=== PATIENT | male | born 1965 | race Caucasian/White ===

== ENCOUNTER 2022-04-15 11:18 | Inpatient (IN) | payer MEDICAID ==
--- NOTE | 2022-04-15 11:48 | ED ---
General Adult HPI - General Chief complaint: Chest Pain Stated complaint: Chest Pain Time Seen by Provider: 04/15/22 11:38 Source: patient, RN notes reviewed, old records reviewed Mode of arrival: EMS Limitations: no limitations - History of Present Illness Initial comments: Patient is a 56-year-old male with past medical history that is unremarkable pr [facility] emergency Department complaining of a multi day history of chest pain and shortness of breath. Patient states that he has had intermittent nonspecific chest pain over the last 2 days that he currently does not have. Last had it yesterday. Also has been having exertional shortness of breath over the same period of time. Denies cough, fevers. Denies worsening lower extremity edema. Denies history of blood clots. Denies abdominal pain, nausea, vomiting. Denies any lightheadedness or dizziness. Has no other acute point at this time. No cardiac history. Presents for further evaluation at this time.Endorses exertional dyspnea. He endorses mild orthopnea. Denies PND. Denies lower extremity edema. - Related Data Allergies Allergy/AdvReac Type Severity Reaction Status Date / Time No Known Allergies Allergy Verified 04/15/22 11:36 Review of Systems ROS Statement: Those systems with pertinent positive or pertinent negative responses have been documented in the HPI. Review of Systems: CONST: Denies fever EYES: Denies blurry vision ENT: Denies nasal congestion C/V: Denies Chest pain RESP: Endorses Shortness of breath GI: Denies abdominal pain : Denies dysuria SKIN: Denies rash. MSK: Denies joint pain. NEURO: Denies headache ROS Other: All systems not noted in ROS Statement are negative. Past Medical History Past Medical History: No Reported History History of Any Multi-Drug Resistant Organisms: None Reported Past Surgical History: No Surgical Hx Reported Past Psychological History: No Psychological Hx Reported Smoking Status: Former smoker Past Alcohol Use History: Rare Past Drug Use History: None Reported General Exam - General Exam Comments Initial Comments: General: Appears in no acute distress. HEAD: Normal with no signs of head trauma. EYES: PERRLA, EOMI, conjunctiva normal, no discharge. ENT: Hearing grossly intact, normal oropharynx. RESPIRATORY: Clear breath sounds bilaterally. No wheezes, rales, or rhonchi. No hypoxia. No increased work of breathing. C/V: Regular rate and rhythm. S1 and S2 auscultated, no edema, peripheral pulses 2+ and intact throughout ABD: Abd is soft, nontender, nondistended EXT: Normal range of motion, no obvious deformity SKIN: No rashes or lesions observed on exposed skin. NEURO: Alert and oriented x 4. Cranial nerves II-XII intact. No focal sensory or strength deficits. Limitations: no limitations Course Vital Signs 04/15/22 11:22 Temperature 97.9 F Pulse Rate 91 Respiratory 18 Rate Blood Pressure 135/90 O2 Sat by Pulse 96 Oximetry Medical Decision Making - Medical Decision Making Based on the patient's presentation and physical exam, I'm concerned for acute cardio pulmonary etiology for his current symptoms. We will obtain a cardiac workup as well as d-dimer. Screening EKG and chest x-ray will be obtained. He was in agreement this plan. Vital signs are within normal limits. He will be given aspirin. Currently has no chest pain. No shortness of breath at rest. EKG showed no signs of acute ischemia. Chest x-ray reveals possible small pleural effusion. Laboratory studies were remarkable for an elevated d-dimer of 0.91. Troponin is slightly elevated to 0.039. BNP is 1520. On reevaluation, patient's vital signs remained within normal limits and stable. Discussed with him I would like to obtain CT angiogram to evaluate for p ulmonary embolism. He was in agreement this plan. CT PE shows no signs of PE. There are small bilateral pleural effusions. Other nonspecific findings including some lymphadenopathy. His chronic lung disease as well. I discussed with the patient the results of his imaging. Due to his elevated troponin, his BNP also being elevated for his age, I would like to admit him for diuresis and evaluation by cardiac cardiology. He was in agreement this plan. Will be started on heparin drip. We started an IV Lasix. We'll obtain an echo. Patient was in agreement this plan. I spoke with the admitting physician, BEHZAD Ochoa who accepted the patient. cardiology was consulted. - Lab Data Result diagrams: 04/15/22 11:58 04/15/22 11:50 Lab Results 04/15/22 04/15/22 04/15/22 Range/Units 11:50 11:50 11:50 WBC (3.8-10.6) k/uL RBC (4.30-5.90) m/uL Hgb (13.0-17.5) gm/dL Hct (39.0-53.0) % MCV (80.0-100.0) fL MCH (25.0-35.0) pg MCHC (31.0-37.0) g/dL RDW (11.5-15.5) % Plt Count (150-450) k/uL MPV Neutrophils % % Lymphocytes % % Monocytes % % Eosinophils % % Basophils % % Neutrophils # (1.3-7.7) k/uL Lymphocytes # (1.0-4.8) k/uL Monocytes # (0-1.0) k/uL Eosinophils # (0-0.7) k/uL Basophils # (0-0.2) k/uL PT (9.0-12.0) sec INR (<1.2) APTT (22.0-30.0) sec D-Dimer (<0.60) mg/L FEU Sodium 137 (137-145) mmol/L Potassium 4.7 (3.5-5.1) mmol/L Chloride 108 H (98-107) mmol/L Carbon Dioxide 23 (22-30) mmol/L Anion Gap 6 mmol/L BUN 16 (9-20) mg/dL Creatinine 0.55 L (0.66-1.25) mg/dL Est GFR (CKD-EPI)AfAm >90 (>60 ml/min/1.73 sqM) Est GFR (CKD-EPI)NonAf >90 (>60 ml/min/1.73 sqM) Glucose 110 H (74-99) mg/dL Plasma Lactic Acid Cesar 1.3 (0.7-2.0) mmol/L Calcium 8.8 (8.4-10.2) mg/dL Magnesium 1.9 (1.6-2.3) mg/dL Total Bilirubin 0.6 (0.2-1.3) mg/dL AST 51 (17-59) U/L ALT 103 H (4-49) U/L Alkaline Phosphatase 76 (38-126) U/L Troponin I 0.039 H* (0.000-0.034) ng/mL NT-Pro-B Natriuret Pep pg/mL Total Protein 6.1 L (6.3-8.2) g/dL Albumin 3.5 (3.5-5.0) g/dL 04/15/22 04/15/22 04/15/22 Range/Units 11:50 11:58 11:58 WBC 8.9 (3.8-10.6) k/uL RBC 5.37 (4.30-5.90) m/uL Hgb 16.0 (13.0-17.5) gm/dL Hct 48.8 (39.0-53.0) % MCV 90.9 (80.0-100.0) fL MCH 29.8 (25.0-35.0) pg MCHC 32.8 (31.0-37.0) g/dL RDW 14.2 (11.5-15.5) % Plt Count 247 (150-450) k/uL MPV 7.9 Neutrophils % 65 % Lymphocytes % 24 % Monocytes % 7 % Eosinophils % 2 % Basophils % 1 % Neutrophils # 5.8 (1.3-7.7) k/uL Lymphocytes # 2.1 (1.0-4.8) k/uL Monocytes # 0.6 (0-1.0) k/uL Eosinophils # 0.2 (0-0.7) k/uL Basophils # 0.0 (0-0.2) k/uL PT 10.7 (9.0-12.0) sec INR 1.0 (<1.2) APTT 20.8 L (22.0-30.0) sec D-Dimer 0.91 H (<0.60) mg/L FEU Sodium (137-145) mmol/L Potassium (3.5-5.1) mmol/L Chloride (98-107) mmol/L Carbon Dioxide (22-30) mmol/L Anion Gap mmol/L BUN (9-20) mg/dL Creatinine (0.66-1.25) mg/dL Est GFR (CKD-EPI)AfAm (>60 ml/min/1.73 sqM) Est GFR (CKD-EPI)NonAf (>60 ml/min/1.73 sqM) Glucose (74-99) mg/dL Plasma Lactic Acid Cesar (0.7-2.0) mmol/L Calcium (8.4-10.2) mg/dL Magnesium (1.6-2.3) mg/dL Total Bilirubin (0.2-1.3) mg/dL AST (17-59) U/L ALT (4-49) U/L Alkaline Phosphatase (38-126) U/L Troponin I (0.000-0.034) ng/mL NT-Pro-B Natriuret Pep 1520 pg/mL Total Protein (6.3-8.2) g/dL Albumin (3.5-5.0) g/dL - EKG Data -: EKG Interpreted by Me EKG Comments: 12-lead Electrocardiogram Interpretation Note EKG was reviewed and interpreted by myself. 12-lead ECG performed at 1122 is interpreted by me as revealing normal sinus rhythm at a rate of 96 beats per minute. [place] is normal. [place] interval is 156 ms, QRS duration is 102 ms, QTc is 442 ms.. There were no ST or T wave abnormalities to suggest myocardial ischemia or injury. R wave progression across the precordium was satisfactory. By my interpretation this EKG is non-diagnostic for acute ischemia. Critical Care Time Critical Care Time: Yes Total Critical Care Time: 35 Critical Care Time: Upon my evaluation, this patient had a high probability of imminent or life- threatening deterioration due to elevated troponin, heart failure, heparin administration which required my direct attention, intervention, and personal management. I have personally provided 35 minutes of critical care time exclusive of time spent on separately billable procedures. Time includes review of laboratory data, radiology results, discussion with consultants, and monitoring for potential decompensation. Interventions were performed as documented in my note. Disposition Clinical Impression: Elevated troponin, Heart failure Disposition: ADMITTED IP TO THIS HOSP Condition: Stable Referrals: None,Stated [REFERRING] - 1-2 days Time of Disposition: 13:40
[2022-04-15] MEDS ORDERED: ASPIRIN 81 MG PO STA (11:49)
[2022-04-15 12:14] LABS: Basophils % (A) 1 %; Eosinophils # (A) 0.2 k/uL (0-0.7); Eosinophils % (A) 2 %; HCT 48.8 % (39.0-53.0); Lymphocytes # (A) 2.1 k/uL (1.0-4.8); Lymphocytes % (A) 24 %; MCH 29.8 pg (25.0-35.0); MCHC 32.8 g/dL (31.0-37.0); MCV 90.9 fL (80.0-100.0); Mean Platelet Volume 7.9; Monocytes # (A) 0.6 k/uL (0-1.0); Monocytes % (A) 7 %; Neutrophils # (A) 5.8 k/uL (1.3-7.7); Neutrophils % (A) 65 %; Platelet Count 247 k/uL (150-450); RBC 5.37 m/uL (4.30-5.90); RDW 14.2 % (11.5-15.5); WBC 8.9 k/uL (3.8-10.6)
[2022-04-15 12:28] LABS: ALT 103 U/L (4-49); AST 51 U/L (17-59); African American GFR (CKD) >90 (>60 ml/min/1.73 sqM); Albumin 3.5 g/dL (3.5-5.0); Alkaline Phosphatase 76 U/L (38-126); Anion Gap 6 mmol/L; Blood Urea Nitrogen 16 mg/dL (9-20); Calcium 8.8 mg/dL (8.4-10.2); Carbon Dioxide 23 mmol/L (22-30); Chloride 108 mmol/L (98-107); Glucose 110 mg/dL (74-99); Magnesium 1.9 mg/dL (1.6-2.3); Non-African American GFR(CKD) >90 (>60 ml/min/1.73 sqM); Potassium 4.7 mmol/L (3.5-5.1); Sodium 137 mmol/L (137-145); Total Bilirubin 0.6 mg/dL (0.2-1.3); Total Protein 6.1 g/dL (6.3-8.2)
[2022-04-15 12:36] LABS: Prothrombin Time 10.7 sec (9.0-12.0)
--- NOTE | 2022-04-15 12:38 | XR ---
EXAMINATION TYPE: XR chest 2V DATE OF EXAM: 04/15/2022 COMPARISON: NONE HISTORY: Difficulty breathing, chest pain TECHNIQUE: Frontal and lateral views of the chest are obtained. FINDINGS: There posterior costophrenic angles show some questionable blunting on the lateral exam, n o pneumothorax. There is eventration of the right hemidiaphragm, elevation right hemidiaphragm. No e vident airspace disease. The cardiac silhouette size is at the upper limit of normal for size, size m ay be accentuated by technique. The osseous structures are intact. IMPRESSION: Minimal blunting the posterior costophrenic angle, difficult to exclude small effusion, borderline cardiac size
[2022-04-15 12:45] LABS: Partial Thromboplastin Time 20.8 sec (22.0-30.0)
--- NOTE | 2022-04-15 13:34 | CT ---
EXAMINATION TYPE: CT chest angio for PE DATE OF EXAM: 04/15/2022 COMPARISON: Chest x-ray 04/15/2022 HISTORY: Shortness of breath and elevated d-dimer. CT DLP: 649.9 mGycm Automated exposure control for dose reduction was used. CONTRAST: CT Chest for pulmonary embolism performed with with IV Contrast, patient injected with 100ml mL of Is ovue 370. FINDINGS: LUNGS: Mild emphysematous changes are seen and there is coarsened interstitium peripherally which cou ld be associated with chronic interstitial lung disease. There are small bilateral pleural effusions. No sizable pneumothorax or definitive consolidative pneumonia. MEDIASTINUM: There is satisfactory enhancement of the pulmonary artery and its branches, there is no CT evidence for pulmonary embolism. There is a right hilar lymph node measuring 1.1 cm compatible wi th nonspecific adenopathy. Subcarinal lymphadenopathy measuring 1.4 cm coronary artery calcification noted. Aorta of normal caliber. Heart is enlarged with trace pericardial fluid. OTHER: Hypertrophic and degenerative changes of spine. Small hiatal hernia noted. Liver reduced in a ttenuation. IMPRESSION: 1. No diagnostic evidence of pulmonary embolism. 2. Small bilateral pleural effusion with findings suggestive of COPD and probable mild chronic inters titial lung disease. 3. There is a nonspecific hilar and mediastinal lymphadenopathy. 4. Reduced hepatic attenuation correlate with liver function enzymes. Hepatic stenosis in the differe ntial diagnosis.
[2022-04-15] MEDS ORDERED: HEPARIN SODIUM 1,000 UN/ML (10ML VL) IV ONE (13:46)
[2022-04-15] MEDS ORDERED: ACETAMINOPHEN TAB 325 MG TAB PO PRN (13:58)
[2022-04-15] MEDS ORDERED: NALOXONE 0.4 MG/ML 1 ML VIAL IVP PRN (13:58)
[2022-04-15] MEDS ORDERED: ONDANSETRON 4 MG/2 ML VIAL IVP PRN (13:58)
[2022-04-15] MEDS ORDERED: HYDROcodone/APAP 5-325MG 1 EACH TAB PO PRN (13:58)
[2022-04-15] MEDS ORDERED: ATORVASTATIN 80 MG TAB PO ONE (13:58)
[2022-04-15] MEDS ORDERED: MELATONIN 3 MG TABLET PO PRN (13:58)
[2022-04-15] MEDS ORDERED: NITROGLYCERIN SL TABS 0.4 MG TAB SUBLINGUAL PRN (13:58)
[2022-04-15] MEDS ORDERED: HEPARIN SOD,PORK IN 0.45% NACL 25,000 UNIT in 0.45% NACL 1 250ML.BAG IV SCH (14:00)
[2022-04-15] MEDS: FUROSEMIDE 10 MG/ML 4 ML VIAL IV SCH ×2 (15:02→20:27)
--- NOTE | 2022-04-15 18:15 | P.HPIM ---
History of Present Illness H&P Date: 04/15/22 History of Presenting Illness: Patient is a very pleasant 56-year-old male with past medical history of hyperlipidemia. He presented to the emergency department for reports of sh ortness of breath. Patient reports experiencing exertional shortness of breath on and off over the past year but states over the last 3 days this has significantly worsened. Patient reports he is unable to walk from one end of the room to the other without being significantly out of breath and taking what feels like forever to recuperate. In addition he reports experiencing some right-sided chest pain/discomfort 3 days ago. Patient denies having a cough or congestion, he denies having any fever, chills, dizziness, lightheadedness, diaphoresis, palpitations, shortness of breath at rest or experiencing any orthopnea, abdominal pain, nausea, vomiting, or experiencing any numbness/tingling/weakness/swelling in his extremities. Patient underwent full evaluation in the emergency department. EKG showing sinus rhythm at 96 bpm. Chest x-ray revealing minimal blunting of the posterior costophrenic angle difficult to exclude small effusions. Labs completed. CBC unremarkable. BMP revealing mild hyperkalemia with chloride of 108 otherwise no significant abnormalities. Liver profile revealing elevated ALT of 103. Troponin elevated at 0.039 and proBNP of 1520. D-dimer 0.91. CTA negative for pulmonary emboli revealing small bilateral pleural effusions with findings suggestive of COPD and probable mild chronic interstitial lung disease and nonspecific hilar and mediastinal lymphadenopathy. Patient was given aspirin 324 mg by mouth 1 dose and started on heparin infusion. He has been admitted under our services with consultation to cardiology. Review of systems: Pertinent positives and negatives as discussed in HPI, a complete review of systems was performed and all other systems are negative. Physical exam: Vital signs reviewed and stable. General: Nontoxic, no distress and appears stated age. Derm: Skin warm and dry, normal coloration for ethnicity. Head: Atraumatic, normocephalic and symmetric. Eyes: EOMs intact, no lid lag, and anicteric sclera Mouth: no lip lesions, mucus membranes moist Cardiovascular: regular rate and rhythm with normal S1S2, systolic murmur, positive posterior tibial pulses bilaterally, and cap refill < 2 seconds. Lungs: Respirations even, regular, and unlabored on room air. Lungs CTA bilaterally, no rhonchi, no rales, no wheezing, and no accessory muscle usage. Abdominal: soft, nontender to palpation, no guarding, no appreciable organomegaly Ext: ROM intact. No gross muscle atrophy, no edema, no contractures Neuro: Speech clear, face symmetrical and CN II-XII grossly intact with no noted focal neuro deficits Psych: Alert and oriented to person, place, time, and situation. Appropriate and pleasant affect. Assessment and Plan of Care: Exertional dyspnea Elevated troponin Bilateral pleural effusions -Cardiology consult, appreciate further recommendations -Telemetry monitoring -Trend troponins, initial troponin elevated at 0.039. -ProBNP elevated at 1520. -Cardiac diet, NPO at midnight -Continue heparin infusion per ACS protocol. -Aspirin, atorvastatin, Lasix and metoprolol -Lipid profile with a.m. labs. -Echocardiogram D-dimer elevated, CTA negative for pulmonary emboli Hyperlipidemia -Atorvastatin 80 mg daily in supplement of rosuvastatin 40 mg daily. The patient is admitted with an anticipated less than 2 midnight stay for evaluation of exertional dyspnea with elevated troponin. CODE STATUS full code: DVT prophylaxis: Heparin Discussed with: Patient and RN Anticipated discharge date: Clinical course to determine Anticipated discharge place: Home A total of 45 minutes was spent on the care of this complex patient more than 50% of the time was spent in counseling and care coordination. Mahesh Braga NP rendered care for this patient independently, reviewed the findings and plan as documented in the note above. I did not physically speak with or examine the patient on this date. Past Medical History Past Medical History: No Reported History History of Any Multi-Drug Resistant Organisms: None Reported Past Surgical History: No Surgical Hx Reported Past Psychological History: No Psychological Hx Reported Smoking Status: Former smoker Past Alcohol Use History: Rare Past Drug Use History: None Reported - Past Family History Father Family Medical History: Congestive Heart Failure (CHF), Hyperlipidemia Additional Family Medical History / Comment(s): Father had leaky heart valves and from L sided heart failure. He had low iron and had high dose iron infusions. He had hypotension and PVCs. Mother Family Medical History: Coronary Artery Disease (CAD) Additional Family Medical History / Comment(s): Mother had cardiac stents. Medications and Allergies Home Medications Medication Instructions Recorded Confirmed Type Aspirin EC [Ecotrin Low Dose] 81 mg PO DAILY 04/15/22 04/15/22 History Rosuvastatin Calcium [Crestor] 40 mg PO DAILY 04/15/22 04/15/22 History Sildenafil Citrate 100 mg PO DAILY PRN 04/15/22 04/15/22 History Ubidecarenone [Coenzyme Q10] 400 mg PO DAILY 04/15/22 04/15/22 History Allergies Allergy/AdvReac Type Severity Reaction Status Date / Time No Known Allergies Allergy Verified 04/15/22 14:53 Physical Exam Osteopathic Statement: *. No significant issues noted on an osteopathic structural exam other than those noted in the History and Physical/Consult. Vitals: Vital Signs Temp Pulse Resp BP Pulse Ox 04/15/22 11:22 97.9 F 91 18 135/90 96 Intake and Output 04/14/22 04/15/22 04/15/22 22:59 06:59 14:59 Other: Weight 111.13 kg Results CBC & Chem 7: 04/15/22 11:58 04/15/22 11:50 Labs: Abnormal Lab Results - Last 24 Hours (Table) 04/15/22 04/15/22 04/15/22 Range/Units 11:50 11:50 11:58 APTT 20.8 L (22.0-30.0) sec D-Dimer 0.91 H (<0.60) mg/L FEU Chloride 108 H (98-107) mmol/L Creatinine 0.55 L (0.66-1.25) mg/dL Glucose 110 H (74-99) mg/dL ALT 103 H (4-49) U/L Troponin I 0.039 H* (0.000-0.034) ng/mL Total Protein 6.1 L (6.3-8.2) g/dL
[2022-04-15] MEDS: HEPARIN SODIUM 1,000 UN/ML (10ML VL) IV PRN (20:27)
[2022-04-15] MEDS: METOPROLOL TARTRATE 12.5 MG TAB PO SCH (20:27)
[2022-04-15] MEDS ORDERED: BENZOCAINE/MENTHOL LOZENG 1 EACH LOZENGE MUCOUS MEM ONE (22:03)
[2022-04-16 04:10] LABS: Basophils % (A) 0 %; Eosinophils # (A) 0.3 k/uL (0-0.7); Eosinophils % (A) 3 %; HCT 51.2 % (39.0-53.0); HGB 16.3 gm/dL (13.0-17.5); Lymphocytes # (A) 2.6 k/uL (1.0-4.8); Lymphocytes % (A) 26 %; MCH 28.7 pg (25.0-35.0); MCHC 31.8 g/dL (31.0-37.0); MCV 90.2 fL (80.0-100.0); Mean Platelet Volume 7.8; Monocytes # (A) 0.7 k/uL (0-1.0); Monocytes % (A) 7 %; Neutrophils # (A) 6.2 k/uL (1.3-7.7); Neutrophils % (A) 62 %; Platelet Count 240 k/uL (150-450); RBC 5.68 m/uL (4.30-5.90); RDW 13.7 % (11.5-15.5)
[2022-04-16 04:28] LABS: Partial Thromboplastin Time 31.5 sec (22.0-30.0); Prothrombin Time 10.9 sec (9.0-12.0)
[2022-04-16 04:52] LABS: African American GFR (CKD) >90 (>60 ml/min/1.73 sqM); Anion Gap 3 mmol/L; Blood Urea Nitrogen 17 mg/dL (9-20); Calcium 8.8 mg/dL (8.4-10.2); Carbon Dioxide 30 mmol/L (22-30); Chloride 103 mmol/L (98-107); Glucose 107 mg/dL (74-99); Non-African American GFR(CKD) >90 (>60 ml/min/1.73 sqM); Potassium 4.2 mmol/L (3.5-5.1); Sodium 136 mmol/L (137-145)
[2022-04-16] MEDS: HEPARIN SODIUM 1,000 UN/ML (10ML VL) IV PRN (05:06)
[2022-04-16] MEDS: PANTOPRAZOLE 40 MG TABLET PO SCH (06:08)
[2022-04-16] MEDS: FUROSEMIDE 10 MG/ML 4 ML VIAL IV SCH ×2 (07:22→19:32)
--- NOTE | 2022-04-16 08:29 | P.PN ---
Subjective Progress Note Date: 04/16/22 Hospital Course: Patient is a very pleasant 56-year-old male with past medical history of hyperlipidemia. He presented to the emergency department for reports of shortness of breath. Patient reports experiencing exertional shortness of breath on and off over the past year but states over the last 3 days this has significantly worsened. Patient reports he is unable to walk from one end of the room to the other without being significantly out of breath and taking what feels like forever to recuperate. In addition he reports experiencing some right-sided chest pain/discomfort 3 days ago. Patient denies having a cough or congestion, he denies having any fever, chills, dizziness, lightheadedness, diaphoresis, palpitations, shortness of breath at rest or experiencing any orthopnea, abdominal pain, nausea, vomiting, or experiencing any numbness/tingling/weakness/swelling in his extremities. Patient underwent full evaluation in the emergency department. EKG showing sinus rhythm at 96 bpm. Chest x-ray revealing minimal blunting of the posterior costophrenic angle difficult to exclude small effusions. Labs completed. CBC unremarkable. BMP revealing mild hyperkalemia with chloride of 108 otherwise no significant abnormalities. Liver profile revealing elevated ALT of 103. Troponin elevated at 0.039 and proBNP of 1520. D-dimer 0.91. CTA negative for pulmonary emboli revealing small bilateral pleural effusions with findings suggestive of COPD and probable mild chronic interstitial lung disease and nonspecific hilar and mediastinal lymphadenopathy. Patient was given aspirin 324 mg by mouth 1 dose and started on heparin infusion. He has been admitted under our services with consultation to cardiology. Troponins were trended and remained flat at 0.039, 0.049, and 0.043. Echocardiogram was completed revealing moderate LVH with sev ere global hypokinesis with an estimated EF of 25%, moderate right ventricular dilation, mild to moderate mitral regurgitation, and mild tricuspid regurgitation. Physical exam: Patient seen and fully evaluated at the bedside this morning. Patient's sister was at bedside visiting. Patient reports since arrival to our facility and shortness of breath has improved however he has not been ambulatory and was experiencing exertional dyspnea. Currently he reports experiencing somewhat of a sore throat. Order placed for [employer] PCR. Cardiology evaluated and discontinued heparin starting patient on losartan 25 mg daily. Morning labs showing no significant abnormalities. Lipid profile was unremarkable and hemoglobin A1c slightly elevated at 6.5%. Vital signs reviewed and stable. General: Nontoxic, no distress and appears stated age. Derm: Skin warm and dry, normal coloration for ethnicity. Head: Atraumatic, normocephalic and symmetric. Eyes: EOMs intact, no lid lag, and anicteric sclera Mouth: no lip lesions, mucus membranes moist Cardiovascular: regular rate and rhythm with normal S1S2, systolic murmur, positive posterior tibial pulses bilaterally, and cap refill < 2 seconds. Lungs: Respirations even, regular, and unlabored on room air. Lungs CTA bilaterally, no rhonchi, no rales, no wheezing, and no accessory muscle usage. Abdominal: soft, nontender to palpation, no guarding, no appreciable organomegaly Ext: ROM intact. No gross muscle atrophy, no edema, no contractures Neuro: Speech clear, face symmetrical and CN II-XII grossly intact with no noted focal neuro deficits Psych: Alert and oriented to person, place, time, and situation. Appropriate and pleasant affect. Assessment and Plan of Care: New-onset systolic heart failure with EF of 25% Cardiomyopathy Exertional dyspnea Elevated troponin, flat Bilateral pleural effusions -Cardiology following, discontinued IV heparin and started patient on losartan 25 mg daily -Telemetry monitoring -ProBNP elevated at 1520. -Cardiac diet -Continue Aspirin, atorvastatin, Lasix and metoprolol -Lipid profile unremarkable and hemoglobin A1c 6.5% -Echocardiogram was completed revealing moderate LVH with severe global hypokinesis with an estimated EF of 25%, moderate right ventricular dilation, mild to moderate mitral regurgitation, and mild tricuspid regurgitation. D-dimer elevated, CTA negative for pulmonary emboli Hyperlipidemia -Atorvastatin 80 mg daily in supplement of rosuvastatin 40 mg daily. CODE STATUS full code: DVT prophylaxis: Heparin Discussed with: Patient and RN Anticipated discharge date: Clinical course to determine Anticipated discharge place: Home A total of 45 minutes was spent on the care of this complex patient more than 50% of the time was spent in counseling and care coordination. I reviewed the documentation as provided by the TENISHA above, who is the original author of this note. I agree with the documented assessment and plan, with the following changes: none Objective - Vital Signs Vital signs: Vital Signs Temp 97.8 F 04/16/22 07:19 Pulse 97 04/16/22 07:19 Resp 20 04/16/22 07:19 BP 118/76 04/16/22 07:19 Pulse Ox 92 L 04/16/22 07:19 FiO2 Intake & Output 04/15/22 04/16/22 04/16/22 18:59 06:59 18:59 Intake Total 120 168.436 Output Total 1700 3000 Balance -1580 -1471.564 Weight 111.3 kg 107.6 kg Intake: Intake, IV Titration 168.436 Amount Heparin Sod,Pork in 0.45% 168.436 NaCl 25,000 unit In 0.45 % NaCl 1 250ml.bag @ 8. 998 UNITS/KG/HR 9.999 mls /hr IV .Q24H COUNTS INCLUDE 234 BEDS AT THE [facility] Rx#: [id number] Oral 120 Output: Urine 1700 3000 Other: Voiding Method Toilet Toilet Toilet Urinal Urinal Urinal - Labs CBC & Chem 7: 04/16/22 03:25 04/16/22 03:25 Labs: Abnormal Lab Results - Last 24 Hours (Table) 04/15/22 04/15/22 04/15/22 Range/Units 11:50 11:50 11:58 APTT 20.8 L (22.0-30.0) sec D-Dimer 0.91 H (<0.60) mg/L FEU Sodium (137-145) mmol/L Chloride 108 H (98-107) mmol/L Creatinine 0.55 L (0.66-1.25) mg/dL Glucose 110 H (74-99) mg/dL ALT 103 H (4-49) U/L Troponin I 0.039 H* (0.000-0.034) ng/mL Total Protein 6.1 L (6.3-8.2) g/dL 04/15/22 04/15/22 04/16/22 Range/Units 14:49 17:55 03:25 APTT (22.0-30.0) sec D-Dimer (<0.60) mg/L FEU Sodium 136 L (137-145) mmol/L Chloride (98-107) mmol/L Creatinine (0.66-1.25) mg/dL Glucose 107 H (74-99) mg/dL ALT (4-49) U/L Troponin I 0.049 H* 0.043 H* (0.000-0.034) ng/mL Total Protein (6.3-8.2) g/dL 04/16/22 Range/Units 03:25 APTT 31.5 H (22.0-30.0) sec D-Dimer (<0.60) mg/L FEU Sodium (137-145) mmol/L Chloride (98-107) mmol/L Creatinine (0.66-1.25) mg/dL Glucose (74-99) mg/dL ALT (4-49) U/L Troponin I (0.000-0.034) ng/mL Total Protein (6.3-8.2) g/dL
[2022-04-16] MEDS: ASPIRIN 81 MG PO SCH (08:48)
[2022-04-16] MEDS: METOPROLOL TARTRATE 12.5 MG TAB PO SCH ×2 (08:48→19:32)
[2022-04-16] MEDS: ATORVASTATIN 80 MG TAB PO SCH (08:49)
[2022-04-16] MEDS: LOSARTAN 25 MG TAB PO SCH (08:49)
--- NOTE | 2022-04-16 08:56 | CA ---
Transthoracic Echo Report Name: Elisabeth Dias Age: 56 Gender: M : 1965 Exam Date: 04/15/2022 14:08 Exam Location: [place] [facility] Ht (in): 71 Wt (lb): 245 Ordering Physician: Mark Deluca MD Attending/Referring Phys: Correctional Maintenance Technician Aleyda Lorenz RDCS Procedure CPT: Indications: eval for heart failure Cardiac Hx: Technical Quality: Good Contrast 1: Total Dose (mL): Contrast 2: Total Dose (mL): MEASUREMENTS (Male / Female) Normal Values 2D ECHO LV Diastolic Diameter PLAX 4.6 cm 4.2 - 5.9 / 3.9 - 5.3 cm LV Systolic Diameter PLAX 4.1 cm IVS Diastolic Thickness 1.4 cm 0.6 - 1.0 / 0.6 - 0.9 cm LVPW Diastolic Thickness 1.4 cm 0.6 - 1.0 / 0.6 - 0.9 cm LV Relative Wall Thickness 0.6 RV Internal Dim ED PLAX 4.4 cm LA Volume 88.5 cm??? 18 - 58 / 22 - 52 cm??? M-MODE Aortic Root Diameter MM 3.5 cm LA Systolic Diameter MM 4.7 cm LA Ao Ratio MM 1.3 MV E Point Septal Separation 1.8 cm AV Cusp Separation MM 1.6 cm DOPPLER AV Peak Velocity 82.1 cm/s AV Peak Gradient 2.7 mmHg MV Area PHT 6.2 cm??? MR Peak Velocity 508.5 cm/s MR Peak Gradient 103.4 mmHg Mitral E Point Velocity 104.4 cm/s Mitral A Point Velocity 70.4 cm/s Mitral E to A Ratio 1.5 MV Deceleration Time 123.2 ms MV E' Velocity 3.4 cm/s Mitral E to MV E' Ratio 30.3 TR Peak Velocity 329.6 cm/s TR Peak Gradient 43.5 mmHg Right Ventricular Systolic Press 45.9 mmHg FINDINGS Left Ventricle Moderately increased septal wall thickness. Grade 3 diastolic dysfunction. Severe global hypokinesis. Left ventricular cavity size normal. Left ventricular ejection fraction is estimated at 25 %. Right Ventricle Moderate right ventricular dilatation. Tapse is 22 mm. Right Atrium Normal right atrial size. Left Atrium Severely increased left atrial volume. Mildly increased left atrial area. Mitral Valve Mitral valve thickened. Mild to moderate mitral regurgitation. Aortic Valve Structurally normal aortic valve without significant sclerosis or stenosis. There is no aortic regurgitation. Tricuspid Valve Structurally normal tricuspid valve without significant stenosis. Pulmonary artery systolic pressure is moderately high at 46 mmHg. Mild tricuspid regurgitation. Pulmonic Valve Structurally normal pulmonic valve without significant stenosis. There is no pulmonic regurgitation. Pericardium Normal pericardium without effusion. Aorta Normal aortic root dimension. CONCLUSIONS Moderate LVH Left ventricular EF 25% with global hypokinesis Moderate right ventricular dilation Mild to moderate mitral regurgitation RVSP 46 Mild tricuspid regurgitation No pericardial effusion Previewed by: Dr. Leonardo Luque DO (Electronically Signed) Final Date: 16 April 2022 08:55
[2022-04-16] MEDS ORDERED: ASPIRIN 81 MG PO SCH (09:00)
[2022-04-16] MEDS ORDERED: NON FORMULARY DRUG (Ubidecarenone [Coenzyme Q10] 200 MG Capsule) PO SCH (09:00)
[2022-04-16] MEDS ORDERED: ATORVASTATIN 80 MG TAB PO SCH (09:00)
[2022-04-16 09:08] LABS: Chol/HDL Ratio 3.07 Ratio; LDL Cholesterol,Calculated 87.2 mg/dL (0.0-131.0); VLDL Calculation 15.86 mg/dL (5.00-40.00)
--- NOTE | 2022-04-16 09:35 | P.CRDCN ---
History of Present Illness Consult date: 04/16/22 History of present illness: HISTORY OF PRESENT ILLNESS: This is a 56-year-old male with a past medical history significant for hyperlipidemia and former nicotine dependence. 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 We have been asked to see the patient in consultation for chest pain. Patient examined at the bedside. Patient reports he has been feeling short of breath for the past few weeks. He does report waking up in the middle of the night short of breath. He reports having some dizziness and light headedness over the past couple days. He denies having any chest pain or pressure. The patient presented to emergency room for further evaluation. He was started on IV heparin and IV Lasix. Patient states his breathing has impro kimberley since morning. The patient does report a family history of heart disease but is unsure of the exact heart conditions or the age they were diagnosed. * EKG reveals sinus mechanism with no signs of acute ischemia * Chest xray minimal blunting of posterior costophrenic angle, difficult to exclude small effusion, borderline cardiac size * Chest CT: Negative for pulmonary embolus. Small bilateral pleural effusions with findings suggestive of COPD and probable mild chronic interstitial lung disease. * Laboratory data: WBC 10.0. Hemoglobin 16.3. Platelet count 240. D-dimer 0.91. Sodium 136. Potassium 4.2. BUN 17. Creatinine 0.68. ProBNP 1520. Troponin 0.039. 0.049. 0.043. * Current home cardiac medications include aspirin 81 mg daily and Crestor 40 mg daily REVIEW OF SYSTEMS: At the time of my exam: CONSTITUTIONAL: Denies fever or chills. HEENT: Denies blurred vision, vision changes, or eye pain. Denies hemoptysis CARDIOVASCULAR: Denies chest pain. Denies orthopnea. Denies PND. Denies palpitations RESPIRATORY: Denies shortness of breath. GASTROINTESTINAL: Denies abdominal pain. Denies nausea or vomiting. HEMATOLOGIC: Denies bleeding disorders. GENITOURINARY: Denies any blood in urine. SKIN: Denies pruitis. Denies rash. PHYSICAL EXAM: VITAL SIGNS: Reviewed. GENERAL: Well-developed in no acute distress. HEENT: Head is normocephalic. Pupils are equal, round. Sclerae anicteric. Mucous membranes of the mouth are moist. Neck supple. No JVD or thyromegaly LUNGS: Respirations even and unlabored. Lungs essentially clear to auscultation bilaterally. HEART: Regular rate and rhythm. S1 and S2 heard. Systolic murmur noted ABDOMEN: Soft. Nondistended. Nontender. EXTREMITIES: Normal range of motion. No clubbing or cyanosis. Peripheral pulses intact. No lower extremity edema NEUROLOGIC: Awake and alert. Oriented x 3. ASSESSMENT: Shortness of breath New-onset heart failure, type unknown, echo pending, suspect systolic with possibility of Takotsubo cardiomyopathy Abnormal troponins, not suggestive of acute coronary syndrome Hyperlipidemia Former nicotine dependence PLAN: Obtain 2-D echo to assess cardiac structure and function Discontinue IV heparin Resume home cardiac medications Continue IV Lasix 40 mg every 12 hours Daily weights Add Losartan 25mg daily Monitor kidney function Add losartan 25 mg daily Further recommendations pending patient's course Nurse practitioner note has been reviewed by physician. Signing provider agrees with the documented findings, assessment, and plan of care. Past Medical History Past Medical History: No Reported History Additional Past Medical History / Comment(s): Arthritis in back/bilateral knees/wrists, basal cell skin cancer removed. History of Any Multi-Drug Resistant Organisms: None Reported Past Surgical History: No Surgical Hx Reported Additional Past Surgical History / Comment(s): Skin cancer removed from face. Past Anesthesia/Blood Transfusion Reactions: Unable to Obtain Additional Past Anesthesia/Blood Transfusion Reaction / Comment(s): Pt has never had anesthesia. Past Psychological History: No Psychological Hx Reported Smoking Status: Former smoker Past Alcohol Use History: Rare Past Drug Use History: None Reported - Past Family History Father Family Medical History: Congestive Heart Failure (CHF), Hyperlipidemia Additional Family Medical History / Comment(s): Father had leaky heart valves and from L sided heart failure. He had low iron and had high dose iron infusions. He had hypotension and PVCs. Mother Family Medical History: Coronary Artery Disease (CAD) Additional Family Medical History / Comment(s): Mother had cardiac stents. Medications and Allergies Home Medications Medication Instructions Recorded Confirmed Type Aspirin EC [Ecotrin Low Dose] 81 mg PO DAILY 04/15/22 04/15/22 History Rosuvastatin Calcium [Crestor] 40 mg PO DAILY 04/15/22 04/15/22 History Sildenafil Citrate 100 mg PO DAILY PRN 04/15/22 04/15/22 History Ubidecarenone [Coenzyme Q10] 400 mg PO DAILY 04/15/22 04/15/22 History Allergies Allergy/AdvReac Type Severity Reaction Status Date / Time No Known Allergies Allergy Verified 04/15/22 14:53 Physical Exam Vitals: Vital Signs Temp Pulse Pulse Resp BP BP Pulse Ox 04/16/22 07:19 97.8 F 97 20 118/76 92 L 04/16/22 07:11 97.8 F 90 18 133/72 04/16/22 03:40 76 17 135/90 97 04/15/22 22:50 98.2 F 91 18 126/88 95 04/15/22 19:50 98.1 F 93 19 136/90 96 04/15/22 16:04 79 04/15/22 15:25 98.0 F 79 20 162/96 97 04/15/22 15:09 98 F 96 18 141/97 95 04/15/22 14:27 98.2 F 103 H 18 132/74 99 04/15/22 11:22 97.9 F 91 18 135/90 96 Intake and Output 04/15/22 04/16/22 04/16/22 22:59 06:59 14:59 Intake Total 173.328 115.108 Output Total 1200 3000 Balance -1026.672 -2884.892 Intake: Intake, IV Titration 53.328 115.108 Amount Heparin Sod,Pork in 0.45% 53.328 115.108 NaCl 25,000 unit In 0.45 % NaCl 1 250ml.bag @ 8. 998 UNITS/KG/HR 9.999 mls /hr IV .Q24H [facility] Rx#: [id number] Oral 120 Output: Urine 1200 3000 Other: Voiding Method Toilet Toilet Toilet Urinal Urinal Urinal Weight 111.3 kg 107.6 kg Results 04/16/22 03:25 04/16/22 03:25 Cardiac Enzymes 04/15/22 04/15/22 04/15/22 Range/Units 11:50 11:50 14:49 AST 51 (17-59) U/L Troponin I 0.039 H* 0.049 H* (0.000-0.034) ng/mL 04/15/22 Range/Units 17:55 AST (17-59) U/L Troponin I 0.043 H* (0.000-0.034) ng/mL Coagulation 04/15/22 04/15/22 04/16/22 Range/Units 11:58 19:33 03:25 PT 10.7 10.9 (9.0-12.0) sec APTT 20.8 L 26.6 31.5 H (22.0-30.0) sec CBC 04/15/22 04/16/22 Range/Units 11:58 03:25 WBC 8.9 10.0 (3.8-10.6) k/uL RBC 5.37 5.68 (4.30-5.90) m/uL Hgb 16.0 16.3 (13.0-17.5) gm/dL Hct 48.8 51.2 (39.0-53.0) % Plt Count 247 240 (150-450) k/uL Comprehensive Metabolic Panel 04/15/22 04/16/22 Range/Units 11:50 03:25 Sodium 137 136 L (137-145) mmol/L Potassium 4.7 4.2 (3.5-5.1) mmol/L Chloride 108 H 103 (98-107) mmol/L Carbon Dioxide 23 30 (22-30) mmol/L BUN 16 17 (9-20) mg/dL Creatinine 0.55 L 0.68 (0.66-1.25) mg/dL Glucose 110 H 107 H (74-99) mg/dL Calcium 8.8 8.8 (8.4-10.2) mg/dL AST 51 (17-59) U/L ALT 103 H (4-49) U/L Alkaline Phosphatase 76 (38-126) U/L Total Protein 6.1 L (6.3-8.2) g/dL Albumin 3.5 (3.5-5.0) g/dL Current Medications Generic Name Dose Route Start Last Admin Trade Name Freq PRN Reason Stop Dose Admin Acetaminophen 650 mg 04/15/22 13:58 Acetaminophen Tab 325 Mg Tab PO Q6HR PRN Mild Pain or Fever > 100.5 Hydrocodone Bitart/Acetaminophen 1 each 04/15/22 13:58 Hydrocodone/Apap 5-325mg 1 Each Tab PO Q4HR PRN Moderate Pain Aspirin 81 mg 04/16/22 09:00 Aspirin 81 Mg PO DAILY [facility] Atorvastatin Calcium 80 mg 04/16/22 09:00 Atorvastatin 80 Mg Tab PO DAILY [facility] Furosemide 40 mg 04/15/22 14:00 04/16/22 07:22 Furosemide 10 Mg/Ml 4 Ml Vial IV 40 mg Q12HR [facility] Administration Heparin Sodium (Porcine) 0 unit 04/15/22 13:46 04/16/22 05:06 Heparin Sodium 1,000 Un/Ml (10ml Vl) IV 4,000 unit PER PROTOCOL PRN Administration Low PTT Protocol Heparin Sodium/Sodium Chloride 250 mls @ 9.999 mls/hr 04/15/22 14:00 04/16/22 05:05 25,000 unit/ Sodium Chloride IV 14.998 units/kg/hr .Q24H [facility] 16.667 mls/hr Titration Protocol 8.998 UNITS/KG/HR Melatonin 3 mg 04/15/22 13:58 Melatonin 3 Mg Tablet PO HS PRN Insomnia Metoprolol Tartrate 12.5 mg 04/15/22 21:00 04/15/22 20:27 Metoprolol Tartrate 12.5 Mg Tab PO 12.5 mg BID CRICKET Administration Naloxone HCl 0.2 mg 04/15/22 13:58 Naloxone 0.4 Mg/Ml 1 Ml Vial IVP Q2M PRN Opioid Reversal Nitroglycerin 0.4 mg 04/15/22 13:58 Nitroglycerin Sl Tabs 0.4 Mg Tab SUBLINGUAL Q5M PRN Chest Pain Ondansetron HCl 4 mg 04/15/22 13:58 Ondansetron 4 Mg/2 Ml Vial IVP Q8HR PRN Nausea And Vomiting Pantoprazole Sodium 40 mg 04/16/22 07:30 04/16/22 06:08 Pantoprazole 40 Mg Tablet PO Not Given [facility] Intake and Output 04/15/22 04/16/22 04/16/22 22:59 06:59 14:59 Intake Total 173.328 115.108 Output Total 1200 3000 Balance -7956.672 -5894.372 Intake: Intake, IV Titration 53.328 115.108 Amount Heparin Sod,Pork in 0.45% 53.328 115.108 NaCl 25,000 unit In 0.45 % NaCl 1 250ml.bag @ 8. 998 UNITS/KG/HR 9.999 mls /hr IV .Q24H [facility] Rx#: [id number] Oral 120 Output: Urine 1200 3000 Other: Voiding Method Toilet Toilet Toilet Urinal Urinal Urinal Weight 111.3 kg 107.6 kg 04/16/22 03:25 04/16/22 03:25
[2022-04-16] MEDS: HEPARIN SODIUM,PORCINE/PF 5,000 UNIT/0.5 ML SYRINGE SQ SCH ×2 (15:03→23:31)
[2022-04-16] MEDS: BENZOCAINE/MENTHOL LOZENG 1 EACH LOZENGE MUCOUS MEM PRN (21:20)
[2022-04-17] MEDS: PANTOPRAZOLE 40 MG TABLET PO SCH (05:57)
[2022-04-17] MEDS: BENZOCAINE/MENTHOL LOZENG 1 EACH LOZENGE MUCOUS MEM PRN (05:58)
[2022-04-17] MEDS: ASPIRIN 81 MG PO SCH (08:09)
[2022-04-17] MEDS: METOPROLOL TARTRATE 12.5 MG TAB PO SCH ×2 (08:09→19:52)
[2022-04-17] MEDS: ATORVASTATIN 80 MG TAB PO SCH (08:09)
[2022-04-17] MEDS: FUROSEMIDE 10 MG/ML 4 ML VIAL IV SCH (08:09)
[2022-04-17] MEDS: LOSARTAN 25 MG TAB PO SCH (08:09)
[2022-04-17] MEDS: HEPARIN SODIUM,PORCINE/PF 5,000 UNIT/0.5 ML SYRINGE SQ SCH ×3 (08:10→23:26)
[2022-04-17] MEDS ORDERED: ALPRAZolam 0.5 MG TAB PO PRN (08:57)
[2022-04-17] MEDS ORDERED: ASPIRIN 325 MG TAB PO STA (08:57)
[2022-04-17] MEDS ORDERED: NITROGLYCERIN SL TABS 0.4 MG TAB SUBLINGUAL PRN (08:57)
[2022-04-17] MEDS ORDERED: ALPRAZolam 0.25 MG TAB PO PRN (08:57)
[2022-04-17] MEDS ORDERED: ATORVASTATIN 80 MG TAB PO STA (08:57)
[2022-04-17] MEDS ORDERED: VERAPAMIL 2.5 MG/ML 2 ML AMP ONE (10:05)
[2022-04-17] MEDS ORDERED: fentaNYL (PF) 50 MCG/ML 2 ML AMP ONE (10:25)
[2022-04-17] MEDS ORDERED: HEPARIN SODIUM 1,000 UN/ML (10ML VL) ONE (10:25)
[2022-04-17] MEDS ORDERED: IV FLUID CONTINUATION 1,000 ML IV ONE (10:40)
[2022-04-17] MEDS ORDERED: LIDOCAINE 1% INJ 10MG/ML (5 ML VIAL-PF) SQ ONE (10:47)
[2022-04-17] MEDS ORDERED: DOPamine DRIP 800 MG in DEXTROSE/WATER 1 250ML.BAG IV ONE (10:50)
[2022-04-17] MEDS ORDERED: HEPARIN SODIUM 1,000 UN/ML (10ML VL) IV ONE (11:01)
[2022-04-17] MEDS ORDERED: NOREPINEPHRINE 4 MG in SODIUM CHLORIDE 0.9% 250 ML IV ONE (11:01)
[2022-04-17] MEDS ORDERED: VERAPAMIL SYRINGE (5 MG/10 ML) INTRAARTER ONE (11:03)
[2022-04-17] MEDS ORDERED: MIDAZOLAM 2 MG/2 ML VIAL IVP ONE (11:05)
--- NOTE | 2022-04-17 11:14 | P.PN ---
Subjective Progress Note Date: 04/17/22 Hospital Course: Patient is a very pleasant 56-year-old male with past medical history of hyperlipidemia. He presented to the emergency department for reports of shortness of breath. Patient reports experiencing exertional shortness of breath on and off over the past year but states over the last 3 days this has significantly worsened. Patient reports he is unable to walk from one end of the room to the other without being significantly out of breath and taking what feels like forever to recuperate. In addition he reports experiencing some right-sided chest pain/discomfort 3 days ago. Patient denies having a cough or congestion, he denies having any fever, chills, dizziness, lightheadedness, diaphoresis, palpitations, shortness of breath at rest or experiencing any orthopnea, abdominal pain, nausea, vomiting, or experiencing any numbness/tingling/weakness/swelling in his extremities. Patient underwent full evaluation in the emergency department. EKG showing sinus rhythm at 96 bpm. Chest x-ray revealing minimal blunting of the posterior costophrenic angle difficult to exclude small effusions. Labs completed. CBC unremarkable. BMP revealing mild hyperkalemia with chloride of 108 otherwise no significant abnormalities. Liver profile revealing elevated ALT of 103. Troponin elevated at 0.039 and proBNP of 1520. D-dimer 0.91. CTA negative for pulmonary emboli revealing small bilateral pleural effusions with findings suggestive of COPD and probable mild chronic interstitial lung disease and nonspecific hilar and mediastinal lymphadenopathy. Patient was given aspirin 324 mg by mouth 1 dose and started on heparin infusion. He has been admitted under our services with consultation to cardiology. Troponins were trended and remained flat at 0.039, 0.049, and 0.043. Echocardiogram was completed revealing moderate LVH with sev ere global hypokinesis with an estimated EF of 25%, moderate right ventricular dilation, mild to moderate mitral regurgitation, and mild tricuspid regurgitation. Physical exam: Patient seen and fully evaluated at the bedside this morning. Patient's sister was at bedside visiting. Patient does report improvement with exertional dyspnea and denies having any chest pain, palpitations, or shortness of breath at rest. He is awaiting to be taken down for scheduled cardiac cath this morning with Dr. Freire. Patient and his sister were updated on echocardiogram results. All questions answered at this time. Hemoglobin A1c resulting in 6.5%. Patient placed on glycemic protocol with NovoLog sliding scale and would benefit from being placed on Jardiance upon discharge. Vital signs reviewed and stable. General: Nontoxic, no distress and appears stated age. Derm: Skin warm and dry, normal coloration for ethnicity. Head: Atraumatic, normocephalic and symmetric. Eyes: EOMs intact, no lid lag, and anicteric sclera Mouth: no lip lesions, mucus membranes moist Cardiovascular: regular rate and rhythm with normal S1S2, systolic murmur, positive posterior tibial pulses bilaterally, and cap refill < 2 seconds. Lungs: Respirations even, regular, and unlabored on room air. Lungs CTA bilaterally, no rhonchi, no rales, no wheezing, and no accessory muscle usage. Abdominal: soft, nontender to palpation, no guarding, no appreciable organomegaly Ext: ROM intact. No gross muscle atrophy, no edema, no contractures Neuro: Speech clear, face symmetrical and CN II-XII grossly intact with no noted focal neuro deficits Psych: Alert and oriented to person, place, time, and situation. Appropriate and pleasant affect. Assessment and Plan of Care: New-onset systolic heart failure with EF of 25% Cardiomyopathy Exertional dyspnea Elevated troponins, flat Bilateral pleural effusions -Cardiology following, patient scheduled to undergo cardiac cath later today. -Telemetry monitoring -ProBNP elevated at 1520. -Cardiac diet -Continue Aspirin, atorvastatin, Lasix, losartan and metoprolol -Lipid profile unremarkable and hemoglobin A1c 6.5% -Echocardiogram was completed revealing moderate LVH with severe global hypokinesis with an estimated EF of 25%, moderate right ventricular dilation, mild to moderate mitral regurgitation, and mild tricuspid regurgitation. D-dimer elevated, CTA negative for pulmonary emboli Hyperlipidemia -Atorvastatin 80 mg daily in supplement of rosuvastatin 40 mg daily. Diabetes mellitus, newly diagnosed with hemoglobin A1c of 6.5% -Glycemic protocol with NovoLog sliding scale throughout hospitalization. -Patient would benefit from being placed on Jardiance upon discharge. CODE STATUS full code: DVT prophylaxis: Heparin Discussed with: Patient and RN Anticipated discharge date: Clinical course to determine Anticipated discharge place: Home A total of 37 minutes was spent on the care of this complex patient more than 50% of the time was spent in counseling and care coordination. Objective - Vital Signs Vital signs: Vital Signs Temp 98.4 F 04/17/22 07:01 Pulse 96 04/17/22 07:01 Resp 18 07/22/22 07:01 BP 136/88 04/17/22 07:01 Pulse Ox 93 L 04/17/22 07:01 FiO2 Intake & Output 04/16/22 04/17/22 04/17/22 18:59 06:59 18:59 Intake Total 240 Output Total 925 Balance -685 Weight 106.4 kg Intake: Oral 240 Output: Urine 925 Other: Voiding Method Toilet Toilet Urinal Urinal - Labs CBC & Chem 7: 04/16/22 03:25 04/16/22 03:25 Labs: Abnormal Lab Results - Last 24 Hours (Table) 04/16/22 Range/Units 03:25 Hemoglobin A1c 6.5 H (0.0-6.0) %
--- NOTE | 2022-04-17 11:19 | P.PN ---
Subjective Progress Note Date: 04/17/22 HISTORY OF PRESENT ILLNESS: This is a 56-year-old male with a past medical history significant for hyperlipidemia and former nicotine dependence. 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 We have been asked to see the patient in consultation for chest pain. Patient examined at the bedside. Patient reports he has been feeling short of breath for the past few weeks. He does report waking up in the middle of the night short of breath. He reports having some dizziness and light headedness over the past couple days. He denies having any chest pain or pressure. The patient presented to emergency room for further evaluation. He was started on IV heparin and IV Lasix. Patient states his breathing has improved since morning. The patient does report a family history of heart disease but is unsure of the exact heart conditions or the age they were diagnosed. * EKG reveals sinus mechanism with no signs of acute ischemia * Chest xray minimal blunting of posterior costophrenic angle, difficult to exclude small effusion, borderline cardiac size * Chest CT: Negative for pulmonary embolus. Small bilateral pleural effusions with findings suggestive of COPD and probable mild chronic interstitial lung disease. * Laboratory data: WBC 10.0. Hemoglobin 16.3. Platelet count 240. D-dimer 0.91. Sodium 136. Potassium 4.2. BUN 17. Creatinine 0.68. ProBNP 1520. Troponin 0.039. 0.049. 0.043. * Current home cardiac medications include aspirin 81 mg daily and Crestor 40 mg daily 04/17/2022 Patient examined this morning at the bedside. Patient denies chest pain or pressure. Patient reports improvement in shortness of breath. He remains on IV Lasix. Echocardiogram completed revealing ejection fraction 25% with global hypokinesis, [id number] mitral regurgitation, and mild tricuspid regurgitation PHYSICAL EXAM: VITAL SIGNS: Reviewed. GENERAL: Well-developed in no acute distress. HEENT: Head is normocephalic. Pupils are equal, round. Sclerae anicteric. Mucous membranes of the mouth are moist. Neck supple. No JVD or thyromegaly LUNGS: Respirations even and unlabored. Lungs essentially clear to auscultation bilaterally. HEART: Regular rate and rhythm. S1 and S2 heard. Systolic murmur noted ABDOMEN: Soft. Nondistended. Nontender. EXTREMITIES: Normal range of motion. No clubbing or cyanosis. Peripheral pulses intact. No lower extremity edema NEUROLOGIC: Awake and alert. Oriented x 3. ASSESSMENT: Shortness of breath New-onset heart failure with reduced ejection fraction Cardiomyopathy, etiology unclear, scheduled for cath today to rule out CAD Abnormal troponins, not suggestive of acute coronary syndrome Hyperlipidemia Former nicotine dependence PLAN: Continue current cardiac medications Continue IV Lasix Patient to undergo cardiac catheterization today with Dr. Pink Further recommendations pending patient's course Nurse practitioner note has been reviewed by physician. Signing provider agrees with the documented findings, assessment, and plan of care. Objective - Vital Signs Vital signs: Vital Signs Temp 98.4 F 04/17/22 07:01 Pulse 96 04/17/22 07:01 Resp 18 04/17/22 08:11 BP 136/88 04/17/22 07:01 Pulse Ox 93 L 04/17/22 07:01 FiO2 Intake & Output 04/16/22 04/17/22 04/17/22 18:59 06:59 18:59 Intake Total 240 Output Total 925 Balance -685 Weight 106.4 kg Intake: Oral 240 Output: Urine 925 Other: Voiding Method Toilet Toilet Toilet Urinal Urinal Urinal - Labs CBC & Chem 7: 04/16/22 03:25 04/16/22 03:25
[2022-04-17] MEDS ORDERED: RX INFO: IV CONTRAST WAS GIVEN 1 EACH MISC MISCELLANE PRN (11:26)
[2022-04-17] MEDS ORDERED: SODIUM CHLORIDE 0.9% 1,000 ML IV SCH (11:30)
--- NOTE | 2022-04-17 11:34 | P.CARDCATH ---
Date of Procedure: 04/17/22 Description of Procedure: Cardiac Catheterization: The patient is a 48 year old male who presented with symptoms of progressive dyspnea, had mild elevation of the troponin was evidence of severe global hypokinesis. Recommendations were made regarding cardiac catheterization, the risks and the complications were discussed with the patient who is in full understanding and agreement. 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 There was no evidence of ST segment elevation or significant arrhythmia. He received intravenous fluid and was started on dopamine and norepinephrine to stabilize his blood pressure. His symptoms resolved gradually and his blood pressure stabilized. The vasopressors were stopped and his IV fluid was decreased with stable blood pressure and heart rate. His symptoms resolved. He received Versed achieiving moderate conscious sedated state. Using Xylocaine Anesthesia and Seldinger technique, a 6-Eritrean sheath was introduced in the right radial artery . Subsequently, selective coronary angiography was performed using a 5-Eritrean 3.5 bend Lisa catheter. Multiple views of the coronary artery including hemiaxial views were obtained. The 5-Eritrean Pigtail catheter was used to cross the aortic valve and LVEDP was calculated. Following that, catheter and sheath were removed. Hemostasis was obtained with deployment of TR band . There was no immediate complication. Patient was returned to room in stable condition. Of note, the patient received a total of 5000 units of intravenous heparin as well as intra-arterial verapamil. Findings: Left main: This is a large size vessel, bifurcating and left circumflex, left main has no high-grade stenosis. LAD: This is a large size vessel, reaching to the apex, giving rise to 2 diagonal branch, the left anterior descending artery and its branches have no evidence of significant obstructive disease Left circumflex: This is a nondominant vessel, giving rise to 2 obtuse marginal branch of moderate caliber. The left circumflex has no evidence of high-grade stenosis. RCA: This is a large dominant vessel bifurcating into PDA and PLV, the proximal RCA has 10% plaque, the rest of the vessel has no high-grade stenosis Left Ventriculogram: Not performed Hemodynamics: There was no gradient across the aortic valve , LVEDP was 22-26 mmHg Conclusion: 1. Mild plaque in the proximal RCA 2. Elevated LVEDP 3. Right dominance 4. Acute episode of vasodilatory response to what appears to be anxiety and panic attack, resolved at the end of the procedure. Recommendations: The patient has evidence of nonischemic cardiomyopathy, his medical regimen will be optimized and depending on his progress further recommendations will be made. The findings and the recommendations were discussed with the patient and the family and they were in full understanding and agreement. Duration of sedation is 32 minutes.
[2022-04-17] MEDS ORDERED: IOPAMIDOL-370 125ML BTL INJ ONE (11:39)
[2022-04-17] MEDS: SODIUM CHLORIDE 0.9% 1,000 ML in EMPTY BAG 1 BAG IV SCH (12:16)
[2022-04-17] MEDS: SPIRONOLACTONE 25 MG TAB PO SCH (12:19)
[2022-04-17] MEDS: FUROSEMIDE 20 MG TAB PO SCH (17:27)
[2022-04-18] MEDS: PANTOPRAZOLE 40 MG TABLET PO SCH ×2 (06:06→08:26)
[2022-04-18] MEDS ORDERED: HEPARIN SODIUM,PORCINE 2,500 UNIT in SODIUM CHLORIDE 0.9% 250 ML IRRIGATION PRN (07:00)
[2022-04-18] MEDS ORDERED: HEPARIN SODIUM,PORCINE 10,000 UNIT in SODIUM CHLORIDE 0.9% 1,000 ML IRRIGATION PRN (07:00)
[2022-04-18 08:09] LABS: African American GFR (CKD) >90 (>60 ml/min/1.73 sqM); Anion Gap 5 mmol/L; Blood Urea Nitrogen 20 mg/dL (9-20); Carbon Dioxide 27 mmol/L (22-30); Chloride 105 mmol/L (98-107); Glucose 109 mg/dL (74-99); Potassium 4.9 mmol/L (3.5-5.1); Sodium 137 mmol/L (137-145)
[2022-04-18 08:10] LABS: Calcium 8.7 mg/dL (8.4-10.2); Non-African American GFR(CKD) >90 (>60 ml/min/1.73 sqM)
[2022-04-18] MEDS: SODIUM CHLORIDE 0.9% 1,000 ML in EMPTY BAG 1 BAG IV SCH ×2 (08:23→16:45)
[2022-04-18] MEDS: HEPARIN SODIUM,PORCINE/PF 5,000 UNIT/0.5 ML SYRINGE SQ SCH ×3 (08:26→23:29)
[2022-04-18] MEDS: ASPIRIN 81 MG PO SCH (08:26)
[2022-04-18] MEDS: METOPROLOL TARTRATE 12.5 MG TAB PO SCH ×2 (08:26→19:39)
[2022-04-18] MEDS: SPIRONOLACTONE 25 MG TAB PO SCH (08:26)
[2022-04-18] MEDS: LOSARTAN 25 MG TAB PO SCH (08:26)
[2022-04-18] MEDS: ATORVASTATIN 80 MG TAB PO SCH (08:27)
[2022-04-18] MEDS: FUROSEMIDE 20 MG TAB PO SCH ×2 (08:27→16:44)
--- NOTE | 2022-04-18 10:49 | P.DS ---
Providers Date of admission: 04/16/22 13:43 Expected date of discharge: 04/18/22 Attending physician: Luci Weston DO Consults: 04/15/22 13:58 Consult Physician Routine Consulting Provider: [facility] Consult Reason/Comments: Chest Pain Do you want consulting provider notified?: Yes Primary care physician: Mina Parks Hospital Course: Nonischemic Cardiomyopathy with EF of 25% Hyperlipidemia Diabetes mellitus, newly diagnosed with hemoglobin A1c of 6.5% Patient is a very pleasant 56-year-old male with past medical history of hyperlipidemia. He presented to the emergency department for reports of shortness of breath. Patient underwent full evaluation in the emergency department. EKG showing sinus rhythm at 96 bpm. Chest x-ray revealing minimal blunting of the posterior costophrenic angle difficult to exclude small effusions. Labs completed. CBC unremarkable. BMP revealing mild hyperkalemia with chloride of 108 otherwise no significant abnormalities. Liver profile revealing elevated ALT of 103. Troponin elevated at 0.039 and proBNP of 1520. D-dimer 0.91. CTA negative for pulmonary emboli revealing small bilateral pleural effusions with findings suggestive of COPD and probable mild chronic interstitial lung disease and nonspecific hilar and mediastinal lymphadenopathy. Patient was given aspirin 324 mg by mouth 1 dose and started on heparin infusion. He was admitted under our services with consultation to cardiology. Troponins were trended and remained flat at 0.039, 0.049, and 0.043. Echocardiogram was completed revealing moderate LVH with severe global hypokinesis with an estimated EF of 25%, moderate right ventricular dilation, mild to moderate mitral regurgitation, and mild tricuspid regurgitation. Patient subsequently underwent left heart catheterization which showed nonocclusive disease. On day of discharge, patient was on room air, feeling back to baseline. Patient will follow-up with cardiology outpatient. I spent 34 minutes coordinating this complex discharge Gen: awake, alert HEENT: normocephalic, atraumatic, good hearing acuity, moist mucous membranes Resp: good air exchange, breathing comfortably with no accessory muscle use CVS: good distal perfusion x 4, GI: soft, NTTP, ND : no SPT, no CVAT, pickering catheter not present MSK: no pitting edema, no clubbing Neuro: non-focal, moving all extremities Psych: cooperative, euthymic mood Patient Condition at Discharge: Good Plan - Discharge Summary Discharge Rx Participant: No New Discharge Prescriptions: New Spironolactone [Aldactone] 25 mg PO DAILY #30 tab Losartan [Cozaar] 25 mg PO DAILY #30 tab Pantoprazole [Protonix] 40 mg PO AC-BRKFST #30 tab Furosemide [Lasix] 20 mg PO BID@0900,1600 #60 tab Metoprolol Tartrate [Lopressor] 12.5 mg PO BID #60 tab Continue Rosuvastatin Calcium [Crestor] 40 mg PO DAILY Aspirin EC [Ecotrin Low Dose] 81 mg PO DAILY Ubidecarenone [Coenzyme Q10] 400 mg PO DAILY Sildenafil Citrate 100 mg PO DAILY PRN PRN Reason: E.D. Discharge Medication List Aspirin EC [Ecotrin Low Dose] 81 mg PO DAILY 04/15/22 [History] Rosuvastatin Calcium [Crestor] 40 mg PO DAILY 04/15/22 [History] Sildenafil Citrate 100 mg PO DAILY PRN 04/15/22 [History] Ubidecarenone [Coenzyme Q10] 400 mg PO DAILY 04/15/22 [History] Furosemide [Lasix] 20 mg PO BID@0900,1600 #60 tab 04/18/22 [Rx] Losartan [Cozaar] 25 mg PO DAILY #30 tab 04/18/22 [Rx] Metoprolol Tartrate [Lopressor] 12.5 mg PO BID #60 tab 04/18/22 [Rx] Pantoprazole [Protonix] 40 mg PO AC-BRKFST #30 tab 04/18/22 [Rx] Spironolactone [Aldactone] 25 mg PO DAILY #30 tab 04/18/22 [Rx] Follow up Appointment(s)/Referral(s): Keith Watkins MD [STAFF PHYSICIAN] - 1 Week Discharge Disposition: HOME SELF-CARE
--- NOTE | 2022-04-18 17:00 | PN ---
PROGRESS NOTE FOLLOW-UP NOTE: This is a 56-year-old gentleman that is admitted to hospital with cardiomyopathy with severe LV systolic dysfunction. He underwent a cardiac catheterization that did not reveal significant obstructive CAD. He is being treated with optimal medical therapy with aspirin, Lipitor, Lasix, Cozaar, Lopressor and Aldactone. On examination today, he is comfortable at rest. Vital signs are stable. There is no jugular venous distention. Carotid upstroke is normal. There is no bruit. Chest exam reveals good air entry bilaterally. Heart exam reveals first and second heart sounds. No gallop. No murmur. Abdomen is soft. Examination of extremities did not reveal any edema. Right radial artery access site appears normal. Labs show potassium of 4.9, creatinine 0.6. ASSESSMENT: Nonischemic cardiomyopathy with severe LV systolic dysfunction. PLAN: Patient is free of symptoms. He is on optimal medical therapy. I advised him to undergo a LifeVest prior to discharge, given the severe LV systolic dysfunction that we have noticed on his echocardiogram. MMODL / IJN: [id number] /
[2022-04-19] MEDS: SODIUM CHLORIDE 0.9% 1,000 ML in EMPTY BAG 1 BAG IV SCH ×2 (04:35→08:17)
[2022-04-19 08:10] VITALS: RESP 16; TEMP 98.3
[2022-04-19] MEDS: HEPARIN SODIUM,PORCINE/PF 5,000 UNIT/0.5 ML SYRINGE SQ SCH (08:10)
[2022-04-19] MEDS: LOSARTAN 25 MG TAB PO SCH (08:11)
[2022-04-19] MEDS: FUROSEMIDE 20 MG TAB PO SCH (08:11)
[2022-04-19] MEDS: SPIRONOLACTONE 25 MG TAB PO SCH (08:11)
[2022-04-19] MEDS: ATORVASTATIN 80 MG TAB PO SCH (08:11)
[2022-04-19] MEDS: METOPROLOL TARTRATE 12.5 MG TAB PO SCH (08:11)
[2022-04-19] MEDS: ASPIRIN 81 MG PO SCH (08:11)
[2022-04-19 12:59] VITALS: BP 113/72; PULSE 85
--- NOTE | 2022-04-19 13:52 | PN ---
PROGRESS NOTE This is a 56-year-old gentleman who is admitted to hospital with nonischemic cardiomyopathy with severe LV systolic dysfunction, underwent cardiac catheterization. He is doing well and is free of symptoms and on optimal medical therapy with Lasix, aspirin, Cozaar, Lopressor, and Aldactone. EXAM: He is comfortable at rest. Vital signs are stable. There is no jugular venous distention. Chest exam reveals good air entry bilaterally. Heart exam reveals first and second heart sounds. No gallop. No murmur. Abdomen is soft. Exam of extremities did not reveal any edema. Peripheral pulses are felt. LABS: Labs show a potassium of 4.9, creatinine is 0.6. The patient is to undergo a life vest prior to discharge. ASSESSMENT: Nonischemic cardiomyopathy. PLAN: Patient is on optimal medical therapy and will have LifeVest done prior to discharge. MMHILDAL / RENNYN: [id number] /
== END 2022-04-19 17:05 | disposition home or self-care (01) | DRG 287 ==
LOC: SUPCPDRO 11:18 → EC 11:18 → 3SCARD 14:03 → OBSVTOIN 04-16 13:43
PROVIDERS: ADMIT Internal Medicine; ATTEND Internal Medicine
PROC: B2111ZZ Fluoroscopy of Multiple Coronary Arteries using Low Osmolar Contrast (ICD-10-PCS; principal; 2022-04-17 10:20)
PROC: 4A023N7 Measurement of Cardiac Sampling and Pressure, Left Heart, Percutaneous Approach (ICD-10-PCS; principal; 2022-04-17 10:20)
DX: I50.21 Acute systolic (congestive) heart failure (principal); I42.8 Other cardiomyopathies; F41.0 Panic disorder [episodic paroxysmal anxiety]; I51.81 Takotsubo syndrome; E87.5 Hyperkalemia; J44.9 Chronic obstructive pulmonary disease, unspecified; E78.5 Hyperlipidemia, unspecified; E11.9 Type 2 diabetes mellitus without complications; R59.0 Localized enlarged lymph nodes; M17.0 Bilateral primary osteoarthritis of knee; M47.9 Spondylosis, unspecified; M19.032 Primary osteoarthritis, left wrist; M19.031 Primary osteoarthritis, right wrist; R77.8 Other specified abnormalities of plasma proteins; Z85.828 Personal history of other malignant neoplasm of skin; Z87.891 Personal history of nicotine dependence; Z82.49 Family history of ischemic heart disease and other diseases of the circulatory system; Z79.899 Other long term (current) drug therapy; Z79.82 Long term (current) use of aspirin
CPT/HCPCS: 36415; 71046; 71275; 80048; 80053; 80061; 83036; 83605; 83735; 83880; 84443; 84484; 85025; 85379; 85610; 85730; 87635; 93005; 93306; 93458; 94760; 96374; 96375; 99291

== ENCOUNTER 2022-06-01 20:59 | Emergency (ER) | payer MEDICAID ==
[2022-06-01 21:09] VITALS: BP 155/73; PULSE 119; RESP 20; TEMP 102.6
[2022-06-01] MEDS ORDERED: ACETAMINOPHEN TAB 500 MG TAB PO STA (23:01)
== END 2022-06-01 23:24 | disposition left against medical advice (07) ==
LOC: EC 20:59
DX: Z53.21 Procedure and treatment not carried out due to patient leaving prior to being seen by health care provider (principal)
CPT/HCPCS: 93005; 99499

== ENCOUNTER → 2022-06-22 | Outpatient (CLI) | payer MEDICAID ==
--- NOTE | 2022-06-23 11:54 | MR ---
EXAMINATION TYPE: MR cervical spine wo con DATE OF EXAM: 06/22/2022 INDICATION: Patient age:Male; 56 years old; Reason for study: M50.10; Right arm numbness. COMPARISON: None. TECHNIQUE: Multi planar, multi sequence imaging was performed utilizing: T1-weighted, T2-weighted, an d turbo inversion recovery imaging of the cervical spine. IV Contrast: None FINDINGS: Alignment: The cervical vertebral bodies have preserved heights. Alignment is within normal limits gi williams patient positioning. Bones: Bone signal is within normal limits. Multilevel degenerative disc disease is noted and most p ronounced at the C5-C7 vertebral levels. Cord: The spinal cord is unremarkable with regards to their signal intensity and morphology. Discs: Mild multilevel disc desiccation is present. C2-C3: No significant disc pathology. The spinal canal is patent. No neural foraminal stenosis. C3-C4: A disc osteophyte complex is present which minimally narrows the ventral subarachnoid space. Bilateral facet and uncovertebral joint arthropathy are present with moderate bilateral neural juan antonio inal stenosis. C4-C5: A disc osteophyte complex is present with mild spinal canal stenosis. Bilateral facet and unc overtebral joint arthropathy are present with moderate bilateral neural foraminal stenosis. C5-C6: A disc osteophyte complex is present with moderate spinal canal stenosis. Bilateral facet and uncovertebral joint arthropathy are present with severe right and moderate left neural foraminal isauro nosis. C6-C7: A disc osteophyte complex is present with moderate spinal canal stenosis. Bilateral facet and uncovertebral joint arthropathy are present with moderate to severe bilateral neural foraminal steno sis. C7-T1: No significant disc pathology. The spinal canal is patent. No neural foraminal stenosis. Other: None. IMPRESSION: 1. C5-C6 and C6-C7 moderate spinal canal stenosis secondary disc osteophyte complexes. 2. C5-C6 severe right and moderate left neural foraminal stenosis. 3. C4-C5 moderate right and C6-C7 bilateral moderate to severe neural foraminal stenosis.
== END | disposition home or self-care (01) ==
LOC: RADMRIMAIN 19:30
PROVIDERS: ATTEND Family Medicine
DX: M47.22 Other spondylosis with radiculopathy, cervical region (principal); M50.123 Cervical disc disorder at C6-C7 level with radiculopathy; M50.122 Cervical disc disorder at C5-C6 level with radiculopathy; M48.02 Spinal stenosis, cervical region; M99.71 Connective tissue and disc stenosis of intervertebral foramina of cervical region
CPT/HCPCS: 72141

== ENCOUNTER 2023-09-10 18:03 | Observation (INO) | payer MEDICAID, OTHER ==
--- NOTE | 2023-09-10 18:47 | ED ---
SOB HPI - General Chief Complaint: Shortness of Breath Stated Complaint: High Heart Rate, SOB Time Seen by Provider: 09/10/23 18:13 Source: patient, family, RN notes reviewed Mode of arrival: ambulatory Limitations: no limitations - History of Present Illness Initial Comments: This is a 57-year-old male who presents to the emergency department for shortn ess of breath and an elevated heart rate. States that he was dealing with what seemed to be an upper respiratory infection for a couple of weeks, however he continues to get worse. He continues to cough and now feels very short of breath. Reports a hx of CHF. He has never been diagnosed with COPD. He saw his primary care provider who gave him an inhaler, however he did not like how this made him feel so he stopped using it. He denies any chest pain, but states that he feels very fatigued and is only able to walk small distances before getting very short of breath. His son is concerned that his heart rate seems very high and he has had episodes where his oxygen drops to 90%. States that his heart rate usually runs in the 80s, but has been in the 100s recently. Also reports associated nausea and vomiting. Additionally, he notes that he has been around one of his younger family members who tested positive for RSV. MD Complaint: shortness of breath, cough - Related Data Home Medications Medication Instructions Recorded Confirmed Aspirin EC [Ecotrin Low Dose] 81 mg PO DAILY 04/15/22 09/10/23 Rosuvastatin Calcium [Crestor] 40 mg PO DAILY 04/15/22 09/10/23 Ubidecarenone [Coenzyme Q10] 200 mg PO DAILY 04/15/22 09/10/23 Furosemide [Lasix] 20 mg PO DAILY 09/10/23 09/10/23 Losartan [Cozaar] 50 mg PO DAILY 09/10/23 09/10/23 Metoprolol Succinate [Toprol XL] 50 mg PO DAILY 09/10/23 09/10/23 Pantoprazole [Protonix] 40 mg PO DAILY 09/10/23 09/10/23 metFORMIN HCL [Glucophage] 500 mg PO BID 09/10/23 09/10/23 Previous Rx's Medication Instructions Recorded Spironolactone [Aldactone] 25 mg PO DAILY #30 tab 04/18/22 Allergies Allergy/AdvReac Type Severity Reaction Status Date / Time No Known Allergies Allergy Verified 09/10/23 23:17 Review of Systems ROS Statement: Those systems with pertinent positive or pertinent negative responses have been documented in the HPI. ROS Other: All systems not noted in ROS Statement are negative. Past Medical History Past Medical History: No Reported History, Heart Failure, Diabetes Mellitus Additional Past Medical History / Comment(s): Arthritis in back/bilateral knees/wrists, basal cell skin cancer removed. History of Any Multi-Drug Resistant Organisms: None Reported Past Surgical History: No Surgical Hx Reported Additional Past Surgical History / Comment(s): Skin cancer removed from face. Past Anesthesia/Blood Transfusion Reactions: Unable to Obtain Additional Past Anesthesia/Blood Transfusion Reaction / Comment(s): Pt has never had anesthesia. Past Psychological History: No Psychological Hx Reported Smoking Status: Former smoker Past Alcohol Use History: Rare Past Drug Use History: None Reported - Past Family History Father Family Medical History: Congestive Heart Failure (CHF), Hyperlipidemia Additional Family Medical History / Comment(s): Father had leaky heart valves and from L sided heart failure. He had low iron and had high dose iron infusions. He had hypotension and PVCs. Mother Family Medical History: Coronary Artery Disease (CAD) Additional Family Medical History / Comment(s): Mother had cardiac stents. General Exam Limitations: no limitations General appearance: alert, in no apparent distress Head exam: Present: atraumatic, normocephalic, normal inspection Respiratory exam: Present: decreased breath sounds, prolonged expiratory Cardiovascular Exam: Present: normal rhythm, tachycardia Neurological exam: Present: alert, oriented X3, CN II-XII intact Psychiatric exam: Present: normal affect, normal mood Skin exam: Present: warm, dry, intact, normal color. Absent: rash Course Vital Signs 09/10/23 09/10/23 09/10/23 18:05 18:37 19:00 Temperature 98.5 F Pulse Rate 118 H 113 H 118 H Respiratory 20 24 20 Rate Blood Pressure 121/78 145/82 145/82 O2 Sat by Pulse 95 92 L 95 Oximetry 09/10/23 09/10/23 09/10/23 19:24 20:00 21:39 Temperature Pulse Rate 114 H 120 H Respiratory 20 Rate Blood Pressure 129/97 O2 Sat by Pulse 94 L 95 Oximetry 09/10/23 09/10/23 09/10/23 21:47 23:00 23:51 Temperature 101.1 F H Pulse Rate 126 H 125 H 131 H Respiratory 20 20 Rate Blood Pressure 104/60 118/57 O2 Sat by Pulse 94 L 92 L Oximetry Medical Decision Making - Medical Decision Making This is a 57-year-old male who presents to the emergency department for coughing and shortness of breath. Was pt. sent in by a medical professional or institution? @ -No Did you speak to anyone other than the patient for history? @ -No Did you review nursing and triage notes? @ -Yes, and I agree, it is accurate with regards to the patient's symptoms. Were old charts reviewed? @ -No Differential Diagnosis? @ -Differential Dyspnea: Coronary syndrome, arrhythmia, tamponade, asthma, COPD, pulmonary embolism, pneumonia, pneumothorax, pulmonary effusion, anaphylaxis, diabetic ketoacidosis, flailed chest, pulmonary contusion, diaphragmatic rupture, anemia, neuromuscular, this is not meant to be an all-inclusive list. EKG interpreted by me (3pts min.)? @ -EKG interpreted by me demonstrating the following: Sinus tachycardia. Ventricular rate 105 beats per minute, MD interval 152 ms, QRS duration 110 ms, QTC 395 ms. X-rays interpreted by me (1pt min.)? @ -Chest x-ray obtained, my interpretation identifies no localized consolidations or infiltrates. CT interpreted by me (1pt min.)? @ -CTA of the chest obtained. My interpretation identifies left upper lobe opa cities. U/S interpreted by me (1pt. min.)? @ -Not obtained What testing was considered but not performed? (CT, X-rays, U/S, labs)? Why? @ -None What meds were considered but not given? Why? @ -None Did you discuss the management of the patient with other professionals? @ -Yes, Dr. Tse, who accepts the patient for admission. Did you reconcile home meds? @ -Yes Was smoking cessation discussed for >3mins.? @ -No Was critical care preformed (if so, how long)? @ -No Were there social determinants of health that impacted care today? How? (Homelessness, low income, unemployed, alcoholism, drug addiction, transpo rtation, low edu. Level, literacy, decrease access to med. care, custodial, rehab)? @ -No Was there de-escalation of care discussed even if they declined? (Discuss DNR or withdrawal of care, Hospice)? @ -No What co-morbidities impacted this encounter? (DM, HTN, Smoking, COPD, CAD, Cancer, CVA, Hep., AIDS, mental health diagnosis, sleep apnea, morbid obesity)? @ -CHF, DM Was patient admitted / discharged? @ -Admitted. Lab work obtained revealing leukocytosis and an elevated d-dimer of 0.85. Lab work was otherwise fairly unremarkable. Covid, influenza, and RSV testing were negative. Chest x-ray reveals no acute process. CTA of the chest was obtained due to the patient's symptoms and elevated d-dimer. This was nondiagnostic for a PE due to the bolus timing. He was however noted to have left upper airspace opacities concerning for pneumonia. He continued to remain tachycardic in the emergency department with episodes of nausea and vomiting. Patient was subsequently admitted to medicine for further management of pneumonia and he was started on the pneumonia protocol. Undiagnosed new problem with uncertain prognosis? @ -None Drug Therapy requiring intensive monitoring for toxicity (Heparin, Nitro, Insulin, Cardizem)? @ -None Were any procedures done? @ -None Diagnosis/symptom? @ -Pneumonia Acute, or Chronic, or Acute on Chronic? @ -Acute Uncomplicated (without systemic symptoms) or Complicated (systemic symptoms)? @ -Complicated Side effects of treatment? @ -None Exacerbation, Progression, or Severe Exacerbation] @ -Not applicable Poses a threat to life or bodily function? @ -Yes This case was discussed in detail with the attending ED physician, Dr. Collier. Presentation, findings, and treatment plan discussed in detail as well. - Lab Data Result diagrams: 09/10/23 18:36 09/10/23 18:36 Lab Results 09/10/23 09/10/23 09/10/23 Range/Units 18:36 18:36 18:36 WBC 14.6 H (3.8-10.6) k/uL RBC 5.80 (4.30-5.90) m/uL Hgb 16.9 (13.0-17.5) gm/dL Hct 49.4 (39.0-53.0) % MCV 85.2 (80.0-100.0) fL MCH 29.2 (25.0-35.0) pg MCHC 34.2 (31.0-37.0) g/dL RDW 13.3 (11.5-15.5) % Plt Count 341 (150-450) k/uL MPV 7.3 Neutrophils % 82 % Lymphocytes % 12 % Monocytes % 3 % Eosinophils % 2 % Basophils % 0 % Neutrophils # 11.9 H (1.3-7.7) k/uL Lymphocytes # 1.8 (1.0-4.8) k/uL Monocytes # 0.4 (0-1.0) k/uL Eosinophils # 0.2 (0-0.7) k/uL Basophils # 0.0 (0-0.2) k/uL PT 10.1 (10.0-12.5) sec INR 0.9 (<1.2) APTT 22.8 (22.0-30.0) sec D-Dimer 0.85 H (<0.60) mg/L FEU Sodium 136 L (137-145) mmol/L Potassium 4.5 (3.5-5.1) mmol/L Chloride 101 (98-107) mmol/L Carbon Dioxide 24 (22-30) mmol/L Anion Gap 11 mmol/L BUN 20 (9-20) mg/dL Creatinine 0.55 L (0.66-1.25) mg/dL Est GFR (CKD-EPI)AfAm >90 (>60 ml/min/1.73 sqM) Est GFR (CKD-EPI)NonAf >90 (>60 ml/min/1.73 sqM) Glucose 117 H (74-99) mg/dL POC Glucose (mg/dL) (70-110) mg/dL POC Glu Pedicab Driver ID Calcium 9.1 (8.4-10.2) mg/dL Magnesium 1.9 (1.6-2.3) mg/dL Total Bilirubin 0.6 (0.2-1.3) mg/dL AST 31 (17-59) U/L ALT 32 (4-49) U/L Alkaline Phosphatase 103 (38-126) U/L Troponin I (0.000-0.034) ng/mL NT-Pro-B Natriuret Pep <20 pg/mL Total Protein 6.7 (6.3-8.2) g/dL Albumin 3.8 (3.5-5.0) g/dL Influenza Type A (PCR) (Not Detectd) Influenza Type B (PCR) (Not Detectd) RSV (PCR) (Not Detectd) SARS-CoV-2 (PCR) (Not Detectd) 09/10/23 09/10/23 09/10/23 Range/Units 18:36 18:36 22:22 WBC (3.8-10.6) k/uL RBC (4.30-5.90) m/uL Hgb (13.0-17.5) gm/dL Hct (39.0-53.0) % MCV (80.0-100.0) fL MCH (25.0-35.0) pg MCHC (31.0-37.0) g/dL RDW (11.5-15.5) % Plt Count (150-450) k/uL MPV Neutrophils % % Lymphocytes % % Monocytes % % Eosinophils % % Basophils % % Neutrophils # (1.3-7.7) k/uL Lymphocytes # (1.0-4.8) k/uL Monocytes # (0-1.0) k/uL Eosinophils # (0-0.7) k/uL Basophils # (0-0.2) k/uL PT (10.0-12.5) sec INR (<1.2) APTT (22.0-30.0) sec D-Dimer (<0.60) mg/L FEU Sodium (137-145) mmol/L Potassium (3.5-5.1) mmol/L Chloride (98-107) mmol/L Carbon Dioxide (22-30) mmol/L Anion Gap mmol/L BUN (9-20) mg/dL Creatinine (0.66-1.25) mg/dL Est GFR (CKD-EPI)AfAm (>60 ml/min/1.73 sqM) Est GFR (CKD-EPI)NonAf (>60 ml/min/1.73 sqM) Glucose (74-99) mg/dL POC Glucose (mg/dL) 116 H (70-110) mg/dL POC Glu Pedicab Driver ID Yessy Cassidy Calcium (8.4-10.2) mg/dL Magnesium (1.6-2.3) mg/dL Total Bilirubin (0.2-1.3) mg/dL AST (17-59) U/L ALT (4-49) U/L Alkaline Phosphatase (38-126) U/L Troponin I 0.014 (0.000-0.034) ng/mL NT-Pro-B Natriuret Pep pg/mL Total Protein (6.3-8.2) g/dL Albumin (3.5-5.0) g/dL Influenza Type A (PCR) Not Detected (Not Detectd) Influenza Type B (PCR) Not Detected (Not Detectd) RSV (PCR) Not Detected (Not Detectd) SARS-CoV-2 (PCR) Not Detected (Not Detectd) - Radiology Data Radiology results: report reviewed, image reviewed Disposition Clinical Impression: Pneumonia Disposition: ADMITTED IP TO THIS HOSP Referrals: Mina Parks MD [Primary Care Provider] - 1-2 days
[2023-09-10 19:05] LABS: Basophils % (A) 0 %; Eosinophils # (A) 0.2 k/uL (0-0.7); Eosinophils % (A) 2 %; HCT 49.4 % (39.0-53.0); HGB 16.9 gm/dL (13.0-17.5); Lymphocytes # (A) 1.8 k/uL (1.0-4.8); Lymphocytes % (A) 12 %; MCH 29.2 pg (25.0-35.0); MCHC 34.2 g/dL (31.0-37.0); MCV 85.2 fL (80.0-100.0); Mean Platelet Volume 7.3; Monocytes # (A) 0.4 k/uL (0-1.0); Monocytes % (A) 3 %; Neutrophils # (A) 11.9 k/uL (1.3-7.7); Neutrophils % (A) 82 %; Platelet Count 341 k/uL (150-450); RDW 13.3 % (11.5-15.5); WBC 14.6 k/uL (3.8-10.6)
[2023-09-10 19:21] LABS: ALT 32 U/L (4-49); AST 31 U/L (17-59); African American GFR (CKD) >90 (>60 ml/min/1.73 sqM); Albumin 3.8 g/dL (3.5-5.0); Alkaline Phosphatase 103 U/L (38-126); Anion Gap 11 mmol/L; Blood Urea Nitrogen 20 mg/dL (9-20); Calcium 9.1 mg/dL (8.4-10.2); Carbon Dioxide 24 mmol/L (22-30); Chloride 101 mmol/L (98-107); Glucose 117 mg/dL (74-99); Magnesium 1.9 mg/dL (1.6-2.3); Non-African American GFR(CKD) >90 (>60 ml/min/1.73 sqM); Potassium 4.5 mmol/L (3.5-5.1); Sodium 136 mmol/L (137-145); Total Bilirubin 0.6 mg/dL (0.2-1.3); Total Protein 6.7 g/dL (6.3-8.2)
[2023-09-10 19:29] LABS: NT-Pro-B-Type Natriuretic Pept <20 pg/mL
[2023-09-10 19:33] LABS: INR 0.9 (<1.2); Partial Thromboplastin Time 22.8 sec (22.0-30.0); Prothrombin Time 10.1 sec (10.0-12.5)
--- NOTE | 2023-09-10 19:48 | XR ---
EXAMINATION TYPE: XR chest 2V DATE OF EXAM: 09/10/2023 7:15 PM CLINICAL INDICATION:Male, 57 years old with history of Chest Pain; COMPARISON: Chest radiographs from 04/15/2022. TECHNIQUE: XR chest 2V Frontal and lateral views of the chest. FINDINGS: Lungs/Pleura: There is no evidence of pleural effusion, focal consolidation, or pneumothorax. Pulmonary vascularity: Unremarkable. Heart/mediastinum: Cardiomediastinal silhouette is unremarkable. Musculoskeletal: No acute osseous pathology. IMPRESSION: No acute cardiopulmonary disease/process.
[2023-09-10] MEDS ORDERED: SODIUM CHLORIDE 0.9% 1,000 ML IV STA (19:56)
--- NOTE | 2023-09-10 20:50 | CT ---
EXAMINATION TYPE: CT chest angio for PE CT DLP: 729 mGycm, Automated exposure control for dose reduction was used. DATE OF EXAM: 09/10/2023 8:16 PM COMPARISON: 04/15/2022 CLINICAL INDICATION:Male, 57 years old with history of LAURA, elevated d-dimer; TECHNIQUE/CONTRAST: CTA scan of the thorax is performed with IV Contrast, patient injected with 100 mL of Isovue 300, MIP images are created and reviewed these are created on a separate workstation.. FINDINGS: Pulmonary Artery: No contrast is in the pulmonary trunk to evaluate for pulmonary embolus. Lungs/Pleura: Scattered airspace opacities are seen most pronounced in the left lung. No evidence of focal consolidation, pleural effusion or pneumothorax. Airway: Large airways are patent. Heart: Heart is within normal limits for size. Vasculature: No evidence of aortic aneurysm. Mediastinum: No gross evidence of adenopathy. Musculoskeletal: No acute osseous abnormalities Soft Tissues: Unremarkable. Lower neck: No significant findings. Upper Abdomen: No significant findings. IMPRESSION: 1. Nondiagnostic exam for pulmonary embolus due to bolus timing 2. Left upper lung airspace opacities concerning for pneumonia. Follow up recommendations for incidental pulmonary nodules, if there are any, are per [employer] or [employer].
[2023-09-10] MEDS ORDERED: AZITHROMYCIN 500 MG in SODIUM CHLORIDE 0.9% 250 ML IVPB STA (21:01)
[2023-09-10] MEDS ORDERED: cefTRIAXone IN SWFI 1,000 MG/10 ML SYRINGE IVP STA ×2 (21:01→23:54)
[2023-09-10] MEDS ORDERED: guaiFENesin-Coden 100-10MG/5ML 10 ML CUP PO ONE (21:01)
[2023-09-10] MEDS ORDERED: IPRATROPIUM-ALBUTEROL 3 ML NEB INHALATION STA (21:01)
[2023-09-10] MEDS ORDERED: ONDANSETRON 4 MG/2 ML VIAL IVP STA (22:15)
[2023-09-10 22:24] LABS: Glucose,Whole Blood 116 mg/dL (70-110)
[2023-09-10] MEDS ORDERED: PNEUMONIA PROTOCOL UTILIZED 1 EACH MISC PO PRN (23:53)
[2023-09-10] MEDS ORDERED: IBUPROFEN 400 MG TAB PO PRN (23:55)
[2023-09-10] MEDS ORDERED: ONDANSETRON 4 MG/2 ML VIAL IVP PRN (23:55)
[2023-09-10] MEDS ORDERED: ACETAMINOPHEN TAB 325 MG TAB PO PRN (23:55)
[2023-09-10] MEDS ORDERED: KETOROLAC 15 MG/ML 1 ML VIAL IVP PRN (23:55)
[2023-09-10] MEDS ORDERED: HYDROcodone/APAP 5-325MG 1 EACH TAB PO PRN (23:55)
[2023-09-10] MEDS ORDERED: NALOXONE 0.4 MG/ML 1 ML VIAL IV PRN (23:55)
[2023-09-10] MEDS ORDERED: ACETAMINOPHEN TAB 500 MG TAB PO STA (23:57)
[2023-09-11] MEDS ORDERED: ALPRAZolam 0.5 MG TAB PO PRN (04:10)
[2023-09-11] MEDS ORDERED: DEXTROSE 50% SYRINGE 50 ML IVP PRN ×2 (04:11)
--- NOTE | 2023-09-11 04:22 | P.HPIM ---
History of Present Illness H&P Date: 09/11/23 Chief Complaint: coughing 57-year-old male with coronary artery disease diabetes mellitus Patient coming in with 3 day history of worsening cough and shortness of breath he reports lingering chronic cough over the past 2 months with exercise intolerance due to exertional dyspnea. However over the past 3 days he noticed some low-grade fevers worsening cough productive of greenish sputum with pleuritic chest discomfort and shortness of breath on exertion and during cough ing denies any chest pain however today he started having vomiting after a coughing fit. He also had an episode of diarrhea denies any GI bleeding. He denies any known sick contacts except for his 7-year-old son who is been sick with some upper respiratory illness however he's been doing better, denies any recent travel denies any history of blood clots. Left heart cath done in March 2022 showed nonocclusive disease. Left ventricular ejection fraction was 25% patient discharged with a LifeVest Patient does report exertional dyspnea and fatigability denies any leg swelling denies any orthopnea Patient denies any abdominal pain denies any dizziness lightheadedness headache changes in his vision or hearing denies any focal neuro deficits denies any urinary changes. Patient denies tobacco smoking or illicit drugs or heavy alcohol review of systems Pertinent positives as noted in HPI. All other systems were reviewed and are negative on exam Constitutional: No acute distress, conversant, pleasant Eyes: Anicteric sclerae, moist conjunctiva, Pupils equal round reactive to light ENMT: NC/AT Oropharynx clear, no erythema, or exudates Neck: Supple, no masses, or JVD No carotid bruits No thyromegaly Lungs: Scattered rhonchi Clear to percussion Normal respiratory effort, no accessory muscle use Cardiovascular: Heart regular in rate and rhythm, No murmurs, gallops, or rubs No peripheral edema Abdominal: Soft Nontender, no guarding, rebound or rigidity Abdomen moving with respiration Normoactive bowel sounds No hepatomegaly, No splenomegaly No palpable mass No abdominal wall hernia noted Extremities: No digital cyanosis No clubbing Pedal pulses intact and symmetrical Radial pulses intact and symmetrical No calf tenderness Psychiatric: Alert and oriented to person, place and time Appropriate affect fair judgement Neuro Muscles Strength 5/5 in all 4 extremities Sensation to light touch grossly present throughout Cranial nerves II-XII grossly intact Lymphatics: no palpable cervical or supraclavicular lymph nodes Past Medical History Past Medical History: No Reported History, Heart Failure, Diabetes Mellitus Additional Past Medical History / Comment(s): Arthritis in back/bilateral knees/wrists, basal cell skin cancer removed. History of Any Multi-Drug Resistant Organisms: None Reported Past Surgical History: No Surgical Hx Reported Additional Past Surgical History / Comment(s): Skin cancer removed from face. Past Anesthesia/Blood Transfusion Reactions: Unable to Obtain Additional Past Anesthesia/Blood Transfusion Reaction / Comment(s): Pt has never had anesthesia. Past Psychological History: No Psychological Hx Reported Smoking Status: Former smoker Past Alcohol Use History: Rare Past Drug Use History: None Reported - Past Family History Father Family Medical History: Congestive Heart Failure (CHF), Hyperlipidemia Additional Family Medical History / Comment(s): Father had leaky heart valves and from L sided heart failure. He had low iron and had high dose iron infusions. He had hypotension and PVCs. Mother Family Medical History: Coronary Artery Disease (CAD) Additional Family Medical History / Comment(s): Mother had cardiac stents. Medications and Allergies Home Medications Medication Instructions Recorded Confirmed Type Aspirin EC [Ecotrin Low Dose] 81 mg PO DAILY 04/15/22 09/10/23 History Rosuvastatin Calcium [Crestor] 40 mg PO DAILY 04/15/22 09/10/23 History Ubidecarenone [Coenzyme Q10] 200 mg PO DAILY 04/15/22 09/10/23 History Spironolactone [Aldactone] 25 mg PO DAILY #30 tab 04/18/22 09/10/23 Rx Furosemide [Lasix] 20 mg PO DAILY 09/10/23 09/10/23 History Losartan [Cozaar] 50 mg PO DAILY 09/10/23 09/10/23 History Metoprolol Succinate [Toprol XL] 50 mg PO DAILY 09/10/23 09/10/23 History Pantoprazole [Protonix] 40 mg PO DAILY 09/10/23 09/10/23 History metFORMIN HCL [Glucophage] 500 mg PO BID 09/10/23 09/10/23 History Allergies Allergy/AdvReac Type Severity Reaction Status Date / Time No Known Allergies Allergy Verified 09/10/23 23:17 Physical Exam Vitals: Vital Signs Temp Pulse Resp BP Pulse Ox 09/10/23 23:00 125 H 20 104/60 94 L 09/10/23 21:47 126 H 09/10/23 21:39 120 H 09/10/23 20:00 114 H 20 129/97 95 09/10/23 19:24 94 L 09/10/23 19:00 118 H 20 145/82 95 09/10/23 18:37 113 H 24 145/82 92 L 09/10/23 18:05 98.5 F 118 H 20 121/78 95 Intake and Output 09/10/23 09/10/23 09/11/23 14:59 22:59 06:59 Other: Weight 108.409 kg Results CBC & Chem 7: 09/10/23 18:36 09/10/23 18:36 Labs: Abnormal Lab Results - Last 24 Hours (Table) 09/10/23 09/10/23 09/10/23 Range/Units 18:36 18:36 18:36 WBC 14.6 H (3.8-10.6) k/uL Neutrophils # 11.9 H (1.3-7.7) k/uL D-Dimer 0.85 H (<0.60) mg/L FEU Sodium 136 L (137-145) mmol/L Creatinine 0.55 L (0.66-1.25) mg/dL Glucose 117 H (74-99) mg/dL POC Glucose (mg/dL) (70-110) mg/dL 09/10/23 Range/Units 22:22 WBC (3.8-10.6) k/uL Neutrophils # (1.3-7.7) k/uL D-Dimer (<0.60) mg/L FEU Sodium (137-145) mmol/L Creatinine (0.66-1.25) mg/dL Glucose (74-99) mg/dL POC Glucose (mg/dL) 116 H (70-110) mg/dL Assessment and Plan Assessment: 57-year-old male with diabetes mellitus coronary artery disease history of left ventricular ejection fraction of 25% coming in with lingering cough which got worse over the past 3 days with some fevers, today was having some vomiting diarrhea and worsening exertional dyspnea for which she decided to come in for evaluation at discussed case with the adductor accepted the admission for sepsis secondary to community-acquired pneumonia with anticipated length of stay more than 2 midnights Sepsis secondary to community-acquired pneumonia Follow-up blood cultures Follow-up sputum cultures Urine Legionella antigen Initiate patient on Rocephin 2 g IV piggyback daily Azithromycin 500 mg daily by mouth Zofran for nausea vomiting Acute respiratory viral panel negative for Covid, influenza, RSV Tylenol for fever White count 14 tachycardia 126 fever 101 C-reactive protein elevated 1.6 Lactic acid normal dentition Chronic conditions Systolic congestive heart failure, compensated echocardiogram March 2022 showed left ventricular ejection fraction of 25% Repeat echocardiogram due to reports of exertional dyspnea ProBNP less than 20 Continue spironolactone, losartan, metoprolol Troponins negative Left heart cath March 2022 nonocclusive disease Diabetes mellitus Hold metformin Initiate insulin sliding scale Renal function unremarkable sodium 136 potassium 4.5 BUN 20 creatinine 0.5 Liver enzymes are unremarkable Full code Heparin subcu 3 times a day for DVT prophylaxis
[2023-09-11 06:08] LABS: Glucose,Whole Blood 107 mg/dL (70-110)
[2023-09-11] MEDS: PANTOPRAZOLE 40 MG TABLET PO SCH (06:10)
[2023-09-11] MEDS: INSULIN ASPART (NovoLOG) 100 UNIT/ML VIAL SQ SCH ×4 (06:21→21:00)
[2023-09-11] MEDS: SPIRONOLACTONE 25 MG TAB PO SCH (08:52)
[2023-09-11] MEDS: ATORVASTATIN 80 MG TAB PO SCH (08:52)
[2023-09-11] MEDS: METOPROLOL SUCCINATE (ER) 50 MG TAB.ER.24H PO SCH (08:52)
[2023-09-11] MEDS: LOSARTAN 50 MG TAB PO SCH (08:52)
[2023-09-11] MEDS: ASPIRIN 81 MG PO SCH (08:52)
[2023-09-11] MEDS: HEPARIN SODIUM,PORCINE 5,000 UNIT/ML 1 ML VIAL SQ SCH ×3 (08:52→23:21)
[2023-09-11] MEDS: NON FORMULARY DRUG (Ubidecarenone [Coenzyme Q10] 200 MG Capsule) PO SCH (08:56)
[2023-09-11] MEDS ORDERED: metFORMIN 500 MG TAB PO SCH (09:00)
[2023-09-11] MEDS ORDERED: FUROSEMIDE 20 MG TAB PO SCH (09:00)
[2023-09-11 09:27] LABS: Basophils % (A) 0 %; Eosinophils # (A) 0.2 k/uL (0-0.7); Eosinophils % (A) 3 %; HCT 41.7 % (39.0-53.0); HGB 14.3 gm/dL (13.0-17.5); Lymphocytes # (A) 1.8 k/uL (1.0-4.8); Lymphocytes % (A) 20 %; MCH 29.3 pg (25.0-35.0); MCHC 34.2 g/dL (31.0-37.0); MCV 85.9 fL (80.0-100.0); Mean Platelet Volume 7.8; Monocytes # (A) 0.5 k/uL (0-1.0); Monocytes % (A) 5 %; Neutrophils # (A) 6.3 k/uL (1.3-7.7); Neutrophils % (A) 70 %; Platelet Count 245 k/uL (150-450); RBC 4.86 m/uL (4.30-5.90); RDW 13.6 % (11.5-15.5); WBC 9.1 k/uL (3.8-10.6)
[2023-09-11 09:39] LABS: African American GFR (CKD) >90 (>60 ml/min/1.73 sqM); Anion Gap 9 mmol/L; Blood Urea Nitrogen 16 mg/dL (9-20); Calcium 8.1 mg/dL (8.4-10.2); Carbon Dioxide 28 mmol/L (22-30); Chloride 98 mmol/L (98-107); Glucose 105 mg/dL (74-99); Non-African American GFR(CKD) >90 (>60 ml/min/1.73 sqM); Potassium 3.9 mmol/L (3.5-5.1); Sodium 135 mmol/L (137-145)
[2023-09-11] MEDS: AZITHROMYCIN 500 MG TAB PO SCH (11:07)
[2023-09-11 11:35] LABS: Glucose,Whole Blood 128 mg/dL (70-110)
--- NOTE | 2023-09-11 12:04 | CA ---
Transthoracic Echo Report Name: Elisabeth Dias Age: 57 Gender: M : 1965 Exam Date: 09/11/2023 09:35 Exam Location: [facility] Ht (in): 73 Wt (lb): 239 Ordering Physician: Madina Tse MD Attending/Referring Phys: [id number], [employer] Ivette Romero RDCS Procedure CPT: Indications: h/o of LVEF 25% Cardiac Hx: Technical Quality: Technically difficult study Contrast 1: Definity Total Dose (mL): 2 Contrast 2: Total Dose (mL): MEASUREMENTS (Male / Female) Normal Values 2D ECHO LV Diastolic Diameter PLAX 4.2 cm 4.2 - 5.9 / 3.9 - 5.3 cm LV Systolic Diameter PLAX 3.2 cm IVS Diastolic Thickness 1.7 cm 0.6 - 1.0 / 0.6 - 0.9 cm LVPW Diastolic Thickness 1.4 cm 0.6 - 1.0 / 0.6 - 0.9 cm LV Relative Wall Thickness 0.7 RV Internal Dim ED PLAX 4.6 cm LV Diastolic Volume MOD BP 161.4 cm??? 67 - 155 / 56 - 104 cm??? LV Systolic Volume MOD BP 63.1 cm??? 22 - 58 / 19 - 49 cm??? LV Ejection Fraction MOD BP 60.9 % >= 55 % LV Cardiac Index MOD BP 3453.2 cm???/min???m??? LV Diastolic Volume MOD 4C 157.9 cm??? LV Systolic Volume MOD 4C 56.8 cm??? LV Ejection Fraction MOD 4C 64.0 % LV Cardiac Index MOD 4C 3552.3 cm???/min???m??? LV Diastolic Length 4C 9.1 cm LV Systolic Length 4C 7.0 cm LV Diastolic Volume MOD 2C 162.8 cm??? LV Systolic Volume MOD 2C 70.2 cm??? LV Ejection Fraction MOD 2C 56.9 % LV Cardiac Index MOD 2C 3253.5 cm???/min???m??? LV Diastolic Length 2C 8.9 cm LV Systolic Length 2C 6.9 cm LA Volume 70.6 cm??? 18 - 58 / 22 - 52 cm??? LA Volume Index 29.5 cm???/m??? 16 - 28 cm???/m??? M-MODE Aortic Root Diameter MM 3.3 cm LA Systolic Diameter MM 5.1 cm LA Ao Ratio MM 1.5 AV Cusp Separation MM 2.3 cm DOPPLER AV Peak Velocity 138.0 cm/s AV Peak Gradient 7.6 mmHg AV Mean Velocity 99.9 cm/s AV Mean Gradient 4.3 mmHg AV Velocity Time Integral 23.6 cm LVOT Peak Velocity 78.2 cm/s LVOT Peak Gradient 2.4 mmHg LVOT Velocity Time Integral 13.3 cm MV Area PHT 2.5 cm??? Mitral E Point Velocity 74.5 cm/s Mitral A Point Velocity 93.9 cm/s Mitral E to A Ratio 0.8 MV Deceleration Time 302.3 ms MV E' Velocity 6.6 cm/s Mitral E to MV E' Ratio 11.2 TR Peak Velocity 247.1 cm/s TR Peak Gradient 24.4 mmHg Right Ventricular Systolic Press 29.1 mmHg FINDINGS Left Ventricle Moderately increased left ventricular wall thickness. Mildly increased left ventricular diastolic volume. Mildly increased left ventricular systolic volume. Left ventricular ejection fraction is estimated at 50-55 %. Right Ventricle Mild to moderate right ventricular dilatation. Right ventricular systolic pressure within normal limits. Right Atrium Normal right atrial size. Left Atrium Mildly increased left atrial volume. Mitral Valve Structurally normal mitral valve. Mild mitral regurgitation. Aortic Valve Trileaflet aortic valve. No aortic valve stenosis or regurgitation. Tricuspid Valve Structurally normal tricuspid valve. Mild tricuspid regurgitation. Pulmonic Valve Structurally normal pulmonic valve. Trace pulmonic regurgitation. Pericardium No pericardial effusion. Aorta Normal size aortic root and proximal ascending aorta. CONCLUSIONS Moderately increased left ventricular wall thickness Left ventricular ejection fraction 50-55% [id number] right ventricular dilation Mild mitral regurgitation Mild tricuspid regurgitation Previewed by: Dr. Leonardo Luque DO (Electronically Signed) Final Date: 11 September 2023 12:03
--- NOTE | 2023-09-11 14:03 | P.PN ---
Subjective Progress Note Date: 09/11/23 Hospital Course: 57-year-old male with history of CAD, diabetes, nonischemic cardiomyopathy with EF 25% presenting with acute on chronic cough and shortness of breath. Patient has been febrile, tachycardic but saturating well on room air. Initial WBC was 14.6, creatinine 0.55, troponin negative, proBNP 20, CRP 1.6, pro calcitonin 0.07, respiratory viral panel was negative. CT chest was nondiagnostic for PE due to bolus timing, left upper lung airspace opacity concerning for pneumonia. Echocardiogram showed LVEF 50-55%. Patient admitted for sepsis secondary to pneumonia, on antibiotics. Subjective: Seen and examined at bedside. No acute events overnight. Continues to have productive cough with slight dyspnea with exertion. Denies any other complaints at the moment. Pertinent positives and negatives as discussed above, a complete review of systems was performed and all other systems are negative. Vitals Signs Reviewed. General: nontoxic, no distress, appears at stated age Derm: warm, dry Head: atraumatic, normocephalic, symmetric Eyes: EOMI, no lid lag, anicteric sclera Mouth: no lip lesion, mucus membranes moist Cardiovascular: S1S2 reg, no murmur Lungs: CTA bilateral, no rhonchi, no rales , no accessory muscle use Abdominal: soft, nontender to palpation, no guarding, no appreciable organomegaly Ext: no gross muscle atrophy, no edema, no contractures Neuro: CN II-XI grossly intact, no focal neuro deficits Psych: Alert, oriented, appropriate affect Data Reviewed Today: Pertinent Labs: WBC 9.1, hemoglobin 14.3, sodium 135, creatinine 0.67, CRP 1.6, pro calcitonin 0.07, blood sugars range between 107-128 Imaging: Echocardiogram reportedly showed LVEF 50-55%. Assessment and Plan: Patient is critically ill, prognosis. Active: Sepsis secondary to community-acquired pneumonia Leukocytosis, resolved -Continue IV ceftriaxone 2 g every 24 hours, oral azithromycin 500 mg -Blood cultures and sputum cultures, urine Legionella antigen pending -Hold diuretics -Pain control with oral Tylenol as needed, no cords needed, monitor for respiratory depression Nonischemic cardiomyopathy, improved EF 50-55% -Not in CHF exacerbation -Continue metoprolol 50 mg daily, spironolactone 25 mg daily, losartan 50 mg daily -Hold diuretics in the setting of sepsis Nonobstructive CAD -Continue aspirin 81 mg daily, atorvastatin 80 mg daily GERD -Pantoprazole 40 mg daily DVT ppx: Subcu heparin Code status: Full code Anticipated discharge place: Pending clinical course Anticipated discharge time: Pending clinical course Objective - Vital Signs Vital signs: Vital Signs Temp 99.1 F 09/11/23 07:12 Pulse 105 H 09/11/23 08:50 Resp 18 09/11/23 07:12 BP 121/73 09/11/23 07:12 Pulse Ox 93 L 09/11/23 07:12 FiO2 Intake & Output 09/10/23 09/11/23 09/11/23 18:59 06:59 18:59 Weight 108.409 kg 109.5 kg Other: # Voids 2 - Labs CBC & Chem 7: 09/11/23 08:47 09/11/23 08:47 Labs: Abnormal Lab Results - Last 24 Hours (Table) 09/10/23 09/10/23 09/10/23 Range/Units 18:36 18:36 18:36 WBC 14.6 H (3.8-10.6) k/uL Neutrophils # 11.9 H (1.3-7.7) k/uL D-Dimer 0.85 H (<0.60) mg/L FEU Sodium 136 L (137-145) mmol/L Creatinine 0.55 L (0.66-1.25) mg/dL Glucose 117 H (74-99) mg/dL POC Glucose (mg/dL) (70-110) mg/dL Calcium (8.4-10.2) mg/dL C-Reactive Protein (<1.0) mg/dL 09/10/23 09/11/23 09/11/23 Range/Units 22:22 00:04 08:47 WBC (3.8-10.6) k/uL Neutrophils # (1.3-7.7) k/uL D-Dimer (<0.60) mg/L FEU Sodium 135 L (137-145) mmol/L Creatinine (0.66-1.25) mg/dL Glucose 105 H (74-99) mg/dL POC Glucose (mg/dL) 116 H (70-110) mg/dL Calcium 8.1 L (8.4-10.2) mg/dL C-Reactive Protein 1.6 H (<1.0) mg/dL 09/11/23 Range/Units 11:34 WBC (3.8-10.6) k/uL Neutrophils # (1.3-7.7) k/uL D-Dimer (<0.60) mg/L FEU Sodium (137-145) mmol/L Creatinine (0.66-1.25) mg/dL Glucose (74-99) mg/dL POC Glucose (mg/dL) 128 H (70-110) mg/dL Calcium (8.4-10.2) mg/dL C-Reactive Protein (<1.0) mg/dL
[2023-09-11 14:37] VITALS: BMI 31.8
[2023-09-11 16:40] LABS: Glucose,Whole Blood 97 mg/dL (70-110)
[2023-09-11 20:44] LABS: Glucose,Whole Blood 107 mg/dL (70-110)
[2023-09-12] MEDS ORDERED: BENZONATATE 100 MG CAP PO PRN (02:11)
[2023-09-12 05:07] LABS: Glucose,Whole Blood 205 mg/dL (70-110)
[2023-09-12] MEDS: INSULIN ASPART (NovoLOG) 100 UNIT/ML VIAL SQ SCH ×2 (06:36→12:22)
[2023-09-12] MEDS: PANTOPRAZOLE 40 MG TABLET PO SCH (06:37)
[2023-09-12 08:12] VITALS: BP 130/81; PULSE 77; RESP 18; TEMP 98.9
[2023-09-12] MEDS: HEPARIN SODIUM,PORCINE 5,000 UNIT/ML 1 ML VIAL SQ SCH (08:29)
[2023-09-12] MEDS: SPIRONOLACTONE 25 MG TAB PO SCH (08:29)
[2023-09-12] MEDS: ATORVASTATIN 80 MG TAB PO SCH (08:29)
[2023-09-12] MEDS: METOPROLOL SUCCINATE (ER) 50 MG TAB.ER.24H PO SCH (08:29)
[2023-09-12] MEDS: AZITHROMYCIN 500 MG TAB PO SCH (08:29)
[2023-09-12] MEDS: LOSARTAN 50 MG TAB PO SCH (08:29)
[2023-09-12] MEDS: ASPIRIN 81 MG PO SCH (08:29)
[2023-09-12] MEDS: NON FORMULARY DRUG (Ubidecarenone [Coenzyme Q10] 200 MG Capsule) PO SCH (08:30)
[2023-09-12 11:57] LABS: Glucose,Whole Blood 87 mg/dL (70-110)
--- NOTE | 2023-09-12 12:37 | P.DS ---
Providers Date of admission: 09/11/23 00:47 Expected date of discharge: 09/12/23 Attending physician: Madina Tse MD Primary care physician: Mina Parks Hospital Course: Discharge Diagnosis: Sepsis secondary to community-acquired pneumonia Leukocytosis Nonischemic cardiomyopathy, improved EF 50-55%, not in exacerbation Nonobstructive CAD GERD Hospital Course: 57-year-old male with history of CAD, diabetes, nonischemic cardiomyopathy with EF 25% presenting with acute on chronic cough and shortness of breath. Patient has been febrile, tachycardic but saturating well on room air. Initial WBC was 14.6, creatinine 0.55, troponin negative, proBNP 20, CRP 1.6, pro calcitonin 0.07, respiratory viral panel was negative. CT chest was nondiagnostic for PE due to bolus timing, left upper lung airspace opacity concerning for pneumonia. Echocardiogram showed LVEF 50-55%. Patient admitted for sepsis secondary to pneumonia, on antibiotics. On room air. Respiratory function stable. Patient will be discharged on oral antibiotics. Follow-up with PCP. Patient seen and examined at bedside. Vital signs reviewed and stable. General: nontoxic, no distress, appears at stated age Derm: warm, dry Head: atraumatic, normocephalic, symmetric Eyes: EOMI, no lid lag, anicteric sclera Mouth: no lip lesion, mucus membranes moist Cardiovascular: S1S2 reg, no murmur Lungs: CTA bilateral, no rhonchi, no rales , no accessory muscle use Abdominal: soft, nontender to palpation, no guarding, no appreciable organomegaly Ext: no gross muscle atrophy, no edema, no contractures Neuro: CN II-XI grossly intact, no focal neuro deficits Psych: Alert, oriented, appropriate affect A total of 33 minutes of time were spent preparing this complex discharge summary. Patient was discharged on 09/12/23 at 1045. Patient Condition at Discharge: Stable Plan - Discharge Summary Discharge Rx Participant: No New Discharge Prescriptions: New Benzonatate [Tessalon Perles] 200 mg PO TID PRN #20 cap PRN Reason: Cough Cefdinir 300 mg PO Q12HR #8 cap Continue Rosuvastatin Calcium [Crestor] 40 mg PO DAILY Aspirin EC [Ecotrin Low Dose] 81 mg PO DAILY Spironolactone [Aldactone] 25 mg PO DAILY #30 tab Losartan [Cozaar] 50 mg PO DAILY Metoprolol Succinate [Toprol XL] 50 mg PO DAILY Furosemide [Lasix] 20 mg PO DAILY Pantoprazole [Protonix] 40 mg PO DAILY Ubidecarenone [Coenzyme Q10] 200 mg PO DAILY metFORMIN HCL [Glucophage] 500 mg PO BID Discharge Medication List Aspirin EC [Ecotrin Low Dose] 81 mg PO DAILY 04/15/22 [History] Rosuvastatin Calcium [Crestor] 40 mg PO DAILY 04/15/22 [History] Ubidecarenone [Coenzyme Q10] 200 mg PO DAILY 04/15/22 [History] Spironolactone [Aldactone] 25 mg PO DAILY #30 tab 04/18/22 [Rx] Furosemide [Lasix] 20 mg PO DAILY 09/10/23 [History] Losartan [Cozaar] 50 mg PO DAILY 09/10/23 [History] Metoprolol Succinate [Toprol XL] 50 mg PO DAILY 09/10/23 [History] Pantoprazole [Protonix] 40 mg PO DAILY 09/10/23 [History] metFORMIN HCL [Glucophage] 500 mg PO BID 09/10/23 [History] Benzonatate [Tessalon Perles] 200 mg PO TID PRN #20 cap 09/12/23 [Rx] Cefdinir 300 mg PO Q12HR #8 cap 09/12/23 [Rx] Follow up Appointment(s)/Referral(s): Mina Parks MD [Primary Care Provider] - 1-2 days (Office is closed at time of discharge. Please call for follow-up appointment.) Patient Instructions/Handouts: Community Acquired Pneumonia (DC) Activity/Diet/Wound Care/Special Instructions: Please see your PCP. Discharge Disposition: HOME SELF-CARE
== END 2023-09-12 13:45 | disposition home or self-care (01) ==
LOC: EC 18:03 → 6NMEDSUR 09-11 00:47 → 4SSUR 09-11 01:12
PROVIDERS: ADMIT Internal Medicine; ATTEND Internal Medicine
DX: A41.9 Sepsis, unspecified organism (principal); J18.9 Pneumonia, unspecified organism; I42.8 Other cardiomyopathies; I50.22 Chronic systolic (congestive) heart failure; I25.10 Atherosclerotic heart disease of native coronary artery without angina pectoris; E11.9 Type 2 diabetes mellitus without complications; K21.9 Gastro-esophageal reflux disease without esophagitis; T48.906A Underdosing of unspecified agents primarily acting on the respiratory system, initial encounter; Z91.148 Patient's other noncompliance with medication regimen for other reason; R79.89 Other specified abnormal findings of blood chemistry; M47.9 Spondylosis, unspecified; M17.0 Bilateral primary osteoarthritis of knee; M19.032 Primary osteoarthritis, left wrist; M19.031 Primary osteoarthritis, right wrist; Z11.52 Encounter for screening for COVID-19; Z20.89 Contact with and (suspected) exposure to other communicable diseases; Z79.82 Long term (current) use of aspirin; Z79.84 Long term (current) use of oral hypoglycemic drugs; Z79.899 Other long term (current) drug therapy; Z85.828 Personal history of other malignant neoplasm of skin; Z87.891 Personal history of nicotine dependence; Z98.890 Other specified postprocedural states; Z82.49 Family history of ischemic heart disease and other diseases of the circulatory system; Z83.49 Family history of other endocrine, nutritional and metabolic diseases
CPT/HCPCS: 96367; 96372 ×2; 96376 ×2; 96361; 96365; 96366; 96375; 99285; 36415 ×2; 94640; 93005; 93306; 85379; 83880; 80053; 80048; 83605; 83735; 84484; 85025 ×2; 85610; 85730; 86140; 87040; 87070; 87205; 83036; 84145; 87636; 71046; 71275; G0378 ×2; J1644 ×2; J2405; J0456; J0696 ×3; Q9957; Q9967

== ENCOUNTER 2024-07-20 12:46 | Inpatient (IN) | payer BC, OTHER ==
[2024-07-20 13:28] LABS: Basophils % (A) 0 %; Eosinophils # (A) 0.2 k/uL (0-0.7); Eosinophils % (A) 3 %; HCT 49.7 % (39.0-53.0); Lymphocytes # (A) 1.4 k/uL (1.0-4.8); Lymphocytes % (A) 18 %; MCH 29.4 pg (25.0-35.0); MCHC 34.2 g/dL (31.0-37.0); Mean Platelet Volume 7.5; Monocytes # (A) 0.6 k/uL (0-1.0); Monocytes % (A) 8 %; Neutrophils # (A) 5.5 k/uL (1.3-7.7); Neutrophils % (A) 69 %; Platelet Count 248 k/uL (150-450); RBC 5.78 m/uL (4.30-5.90); RDW 13.5 % (11.5-15.5)
--- NOTE | 2024-07-20 13:45 | ED ---
SOB HPI - General Chief Complaint: Shortness of Breath Stated Complaint: SOB, fever Time Seen by Provider: 07/20/24 13:00 Source: patient Limitations: no limitations - History of Present Illness Initial Comments: 58-year-old male with past medical history of ischemic cardiomyopathy who presents emergency department reporting shortness of breath. [facility] and they found that he was hypoxic in the 80s. Patient had an expiratory wheeze. He has been reporting cough and fever since Wednesday. He took a home COVID test which was negative. Urgent care also performed a COVID test which was negative. He does have diagnosed COPD but does not use any inhalers. No home oxygen use. He has never been hospitalized for his breathing. No lower extremity swelling. No history of DVT or PE. Does have a history of congestive heart failure for which the daughter states his last echo couple years ago showed that his heart had improved. Last dose of Motrin was at 11 AM. No sick contacts. No other alleviating, precipitating or modifying factors - Related Data Home Medications Medication Instructions Recorded Confirmed Coricidin Hbp Chest Congestion And 1 - 2 tab PO Q4H PRN 07/20/24 07/20/24 Cough Ibuprofen [Motrin Ib] 200 mg PO Q8H PRN 07/20/24 07/20/24 Allergies Allergy/AdvReac Type Severity Reaction Status Date / Time hydrocodone [From [place]] Allergy Itching Verified 07/20/24 14:32 Review of Systems ROS Statement: Those systems with pertinent positive or pertinent negative responses have been documented in the HPI. ROS Other: All systems not noted in ROS Statement are negative. Past Medical History Past Medical History: No Reported History, Heart Failure, Diabetes Mellitus Additional Past Medical History / Comment(s): Arthritis in back/bilateral knees/wrists, basal cell skin cancer removed. History of Any Multi-Drug Resistant Organisms: None Reported Past Surgical History: No Surgical Hx Reported, Heart Catheterization Additional Past Surgical History / Comment(s): Skin cancer removed from face. Past Anesthesia/Blood Transfusion Reactions: Unable to Obtain Additional Past Anesthesia/Blood Transfusion Reaction / Comment(s): Pt has never had anesthesia. Past Psychological History: No Psychological Hx Reported Smoking Status: Former smoker Past Alcohol Use History: Rare Past Drug Use History: Marijuana - Past Family History Father Family Medical History: Congestive Heart Failure (CHF), Hyperlipidemia Additional Family Medical History / Comment(s): Father had leaky heart valves and from L sided heart failure. He had low iron and had high dose iron infusions. He had hypotension and PVCs. Mother Family Medical History: Coronary Artery Disease (CAD) Additional Family Medical History / Comment(s): Mother had cardiac stents. General Exam Limitations: no limitations General appearance: alert, in no apparent distress Head exam: Present: atraumatic, normocephalic, normal inspection Eye exam: Present: normal appearance, PERRL, EOMI. Absent: scleral icterus, conjunctival injection, periorbital swelling ENT exam: Present: normal exam, mucous membranes moist Neck exam: Present: normal inspection. Absent: tenderness, meningismus, lymphadenopathy Respiratory exam: Present: wheezes. Absent: respiratory distress, rales, rhonchi, stridor Cardiovascular Exam: Present: regular rate, normal rhythm, normal heart sounds. Absent: systolic murmur, diastolic murmur, rubs, gallop, clicks GI/Abdominal exam: Present: soft, normal bowel sounds. Absent: distended, tenderness, guarding, rebound, rigid Extremities exam: Present: normal inspection, full ROM, normal capillary refill. Absent: tenderness, pedal edema, joint swelling, calf tenderness Back exam: Present: normal inspection Neurological exam: Present: alert, oriented X3, CN II-XII intact Psychiatric exam: Present: normal affect, normal mood Skin exam: Present: warm, dry, intact, normal color. Absent: rash Course Vital Signs 07/20/24 07/20/24 07/20/24 12:49 13:00 15:24 Temperature 99.0 F 98.6 F Pulse Rate 101 H 105 H 93 Respiratory 22 22 18 Rate Blood Pressure 129/82 154/91 O2 Sat by Pulse 90 L 94 L 95 Oximetry 07/20/24 07/20/24 07/20/24 17:39 17:51 18:09 Temperature 100.1 F H Pulse Rate 105 H 100 103 H Respiratory 24 Rate Blood Pressure 157/90 O2 Sat by Pulse 93 L Oximetry 07/20/24 07/20/24 07/20/24 20:10 21:21 21:27 Temperature 98.1 F Pulse Rate 91 91 89 Respiratory 17 Rate Blood Pressure 127/67 O2 Sat by Pulse 95 Oximetry 07/21/24 07/21/24 03:06 04:21 Temperature 98.7 F 99.3 F Pulse Rate 88 88 Respiratory 18 19 Rate Blood Pressure 125/68 143/88 O2 Sat by Pulse 95 93 L Oximetry Medical Decision Making - Medical Decision Making Was pt. sent in by a medical professional or institution (LATISHA Fonseca, CLINIC SCHEDULER, urgent care, hospital, or usp...) When possible be specific @ -Patient sent in from urgent care Did you speak to anyone other than the patient for history (EMS, parent, family, police, friend...)? What history was obtained from this source @ -Spoke with EMS for history Did you review nursing and triage notes (agree or disagree)? Why? @ -I reviewed and agree with nursing and triage notes Were old charts reviewed (outside hosp., previous admission, EMS record, old EKG, old radiological studies, urgent care reports/EKG's, usp records)? Report findings @ -I reviewed hospitalization from March 2022 where patient had an EF of 20% due to nonischemic cardiomyopathy Differential Diagnosis (chest pain, altered mental status, abdominal pain women, abdominal pain men, vaginal bleeding, weakness, fever, dyspnea, syncope, headache, dizziness, GI bleed, back pain, seizure, CVA, palpatations, mental health, musculoskeletal)? @ -Differential Dyspnea: Coronary syndrome, arrhythmia, tamponade, asthma, COPD, pulmonary embolism, pneumonia, pneumothorax, pulmonary effusion, anaphylaxis, diabetic ketoacidosis, flailed chest, pulmonary contusion, diaphragmatic rupture, anemia, neuromuscular, this is not meant to be an all-inclusive list. EKG interpreted by me (3pts min.). @ -Yes and demonstrates sinus rhythm with a rate of 93. VA interval 135. QRS 95. QTc of 401. Q wave in lead III. No acute ST segment elevation X-rays interpreted by me (1pt min.). @ -Yes and demonstrates pneumonia CT interpreted by me (1pt min.). @ -Yes and demonstrates pneumonia. No PE U/S interpreted by me (1pt. min.). @ -None done What testing was considered but not performed or refused? (CT, X-rays, U/S, labs)? Why? @ -None What meds were considered but not given or refused? Why? @ -None Did you discuss the management of the patient with other professionals (professionals i.e. Dr., PA, CLINIC SCHEDULER, lab, RT, psych nurse, oncology social worker, sugar reprocess operator head, teacher, district fire management officer, case manager specialist)? Give summary @ -Discussed the case with Dr. Navarrete who accepted patient Was smoking cessation discussed for >3mins.? @ -No Was critical care preformed (if so, how long)? @ -Yes, 35 minutes for hypoxic respiratory failure Were there social determinants of health that impacted care today? How? (Homelessness, low income, unemployed, alcoholism, drug addiction, trans portation, low edu. Level, literacy, decrease access to med. care, residential, rehab)? @ -No Was there de-escalation of care discussed even if they declined (Discuss DNR or withdrawal of care, Hospice)? DNR status @ -No What co-morbidities impacted this encounter? (DM, HTN, Smoking, COPD, CAD, Cancer, CVA, ARF, Chemo, Hep., AIDS, mental health diagnosis, sleep apnea, morbid obesity)? @ -COPD, CHF Was patient admitted / discharged? Hospital course, mention meds given and route, prescriptions, significant lab abnormalities, going to OR and other pertinent info. @ -Upon arrival patient seen and evaluated in bed 29. Thorough history and physical exam was performed. Patient does require 4 L of oxygen due to his hypoxia. IV was established. Laboratory studies are conducted. Chest x-ray was performed. Patient does have elevated D-dimer and therefore I did perform a CT study. CT does not demonstrate PE. Continues to demonstrate multifocal pneumonia. Due to his hypoxia I recommended admission. Spoke with Dr. Navarrete for admission Undiagnosed new problem with uncertain prognosis? @ -No Drug Therapy requiring intensive monitoring for toxicity (Heparin, Nitro, Insulin, Cardizem)? @ -No Were any procedures done? @ -No Diagnosis/symptom? @ -Acute hypoxic respiratory failure, community-acquired pneumonia, history of COPD Acute, or Chronic, or Acute on Chronic? @ -Acute Uncomplicated (without systemic symptoms) or Complicated (systemic symptoms)? @ -Complicated Side effects of treatment? @ -No Exacerbation, Progression, or Severe Exacerbation? @ -No Poses a threat to life or bodily function? How? (Chest pain, USA, ND, pneumonia, PE, COPD, DKA, ARF, appy, cholecystitis, CVA, Diverticulitis, Homicidal, Suicidal, threat to staff... and all critical care pts) @ -Yes as patient is hypoxic - Lab Data Result diagrams: 07/21/24 03:01 07/21/24 03:01 Lab Results 07/20/24 07/20/24 07/20/24 Range/Units 13:14 13:14 13:14 WBC 8.0 (3.8-10.6) k/uL RBC 5.78 (4.30-5.90) m/uL Hgb 17.0 (13.0-17.5) gm/dL Hct 49.7 (39.0-53.0) % MCV 86.0 (80.0-100.0) fL MCH 29.4 (25.0-35.0) pg MCHC 34.2 (31.0-37.0) g/dL RDW 13.5 (11.5-15.5) % Plt Count 248 (150-450) k/uL MPV 7.5 Neutrophils % 69 % Lymphocytes % 18 % Monocytes % 8 % Eosinophils % 3 % Basophils % 0 % Neutrophils # 5.5 (1.3-7.7) k/uL Lymphocytes # 1.4 (1.0-4.8) k/uL Monocytes # 0.6 (0-1.0) k/uL Eosinophils # 0.2 (0-0.7) k/uL Basophils # 0.0 (0-0.2) k/uL PT 10.0 (10.0-12.5) sec INR 0.9 (<1.2) APTT 20.6 L (22.0-30.0) sec D-Dimer 1.04 H (<0.60) mg/L FEU Sodium 136 L (137-145) mmol/L Potassium 4.3 (3.5-5.1) mmol/L Chloride 105 (98-107) mmol/L Carbon Dioxide 24 (22-30) mmol/L Anion Gap 7 mmol/L BUN 17 (9-20) mg/dL Creatinine 0.42 L (0.66-1.25) mg/dL Est GFR (CKD-EPI)AfAm >90 (>60 ml/min/1.73 sqM) Est GFR (CKD-EPI)NonAf >90 (>60 ml/min/1.73 sqM) Glucose 117 H (74-99) mg/dL Plasma Lactic Acid Cesar (0.7-2.0) mmol/L Calcium 8.8 (8.4-10.2) mg/dL Magnesium 2.0 (1.6-2.3) mg/dL Total Bilirubin 0.9 (0.2-1.3) mg/dL AST 53 (17-59) U/L ALT 77 H (4-49) U/L Alkaline Phosphatase 124 (38-126) U/L Troponin I (0.000-0.034) ng/mL NT-Pro-B Natriuret Pep 99 pg/mL Total Protein 6.7 (6.3-8.2) g/dL Albumin 3.7 (3.5-5.0) g/dL Procalcitonin (0.02-0.50) ng/mL Influenza Type A (PCR) (Not Detectd) Influenza Type B (PCR) (Not Detectd) RSV (PCR) (Not Detectd) SARS-CoV-2 (PCR) (Not Detectd) 07/20/24 07/20/24 07/20/24 Range/Units 13:14 13:14 13:14 WBC (3.8-10.6) k/uL RBC (4.30-5.90) m/uL Hgb (13.0-17.5) gm/dL Hct (39.0-53.0) % MCV (80.0-100.0) fL MCH (25.0-35.0) pg MCHC (31.0-37.0) g/dL RDW (11.5-15.5) % Plt Count (150-450) k/uL MPV Neutrophils % % Lymphocytes % % Monocytes % % Eosinophils % % Basophils % % Neutrophils # (1.3-7.7) k/uL Lymphocytes # (1.0-4.8) k/uL Monocytes # (0-1.0) k/uL Eosinophils # (0-0.7) k/uL Basophils # (0-0.2) k/uL PT (10.0-12.5) sec INR (<1.2) APTT (22.0-30.0) sec D-Dimer (<0.60) mg/L FEU Sodium (137-145) mmol/L Potassium (3.5-5.1) mmol/L Chloride (98-107) mmol/L Carbon Dioxide (22-30) mmol/L Anion Gap mmol/L BUN (9-20) mg/dL Creatinine (0.66-1.25) mg/dL Est GFR (CKD-EPI)AfAm (>60 ml/min/1.73 sqM) Est GFR (CKD-EPI)NonAf (>60 ml/min/1.73 sqM) Glucose (74-99) mg/dL Plasma Lactic Acid Cesar 1.0 (0.7-2.0) mmol/L Calcium (8.4-10.2) mg/dL Magnesium (1.6-2.3) mg/dL Total Bilirubin (0.2-1.3) mg/dL AST (17-59) U/L ALT (4-49) U/L Alkaline Phosphatase (38-126) U/L Troponin I <0.012 (0.000-0.034) ng/mL NT-Pro-B Natriuret Pep pg/mL Total Protein (6.3-8.2) g/dL Albumin (3.5-5.0) g/dL Procalcitonin 0.09 (0.02-0.50) ng/mL Influenza Type A (PCR) (Not Detectd) Influenza Type B (PCR) (Not Detectd) RSV (PCR) (Not Detectd) SARS-CoV-2 (PCR) (Not Detectd) 07/20/24 Range/Units 13:17 WBC (3.8-10.6) k/uL RBC (4.30-5.90) m/uL Hgb (13.0-17.5) gm/dL Hct (39.0-53.0) % MCV (80.0-100.0) fL MCH (25.0-35.0) pg MCHC (31.0-37.0) g/dL RDW (11.5-15.5) % Plt Count (150-450) k/uL MPV Neutrophils % % Lymphocytes % % Monocytes % % Eosinophils % % Basophils % % Neutrophils # (1.3-7.7) k/uL Lymphocytes # (1.0-4.8) k/uL Monocytes # (0-1.0) k/uL Eosinophils # (0-0.7) k/uL Basophils # (0-0.2) k/uL PT (10.0-12.5) sec INR (<1.2) APTT (22.0-30.0) sec D-Dimer (<0.60) mg/L FEU Sodium (137-145) mmol/L Potassium (3.5-5.1) mmol/L Chloride (98-107) mmol/L Carbon Dioxide (22-30) mmol/L Anion Gap mmol/L BUN (9-20) mg/dL Creatinine (0.66-1.25) mg/dL Est GFR (CKD-EPI)AfAm (>60 ml/min/1.73 sqM) Est GFR (CKD-EPI)NonAf (>60 ml/min/1.73 sqM) Glucose (74-99) mg/dL Plasma Lactic Acid Cesar (0.7-2.0) mmol/L Calcium (8.4-10.2) mg/dL Magnesium (1.6-2.3) mg/dL Total Bilirubin (0.2-1.3) mg/dL AST (17-59) U/L ALT (4-49) U/L Alkaline Phosphatase (38-126) U/L Troponin I (0.000-0.034) ng/mL NT-Pro-B Natriuret Pep pg/mL Total Protein (6.3-8.2) g/dL Albumin (3.5-5.0) g/dL Procalcitonin (0.02-0.50) ng/mL Influenza Type A (PCR) Not Detected (Not Detectd) Influenza Type B (PCR) Not Detected (Not Detectd) RSV (PCR) Not Detected (Not Detectd) SARS-CoV-2 (PCR) Not Detected (Not Detectd) Disposition Clinical Impression: Pneumonia, COPD exacerbation Disposition: ADMITTED IP TO THIS [facility] Condition: Stable Is patient prescribed a controlled substance at d/c from ED?: No Time of Disposition: 17:18 Decision to Admit Reason: Admit from EC Decision Date: 07/20/24 Decision Time: 17:18
[2024-07-20 13:55] LABS: INR 0.9 (<1.2); Partial Thromboplastin Time 20.6 sec (22.0-30.0)
--- NOTE | 2024-07-20 14:13 | XR ---
EXAMINATION TYPE: XR chest 2V DATE OF EXAM: 07/20/2024 COMPARISON: 09/10/2023 HISTORY: 58-year-old male cough and congestion, difficulty breathing TECHNIQUE: AP and lateral views FINDINGS: Heart normal size. Aorta within normal limits. Perihilar diffuse interstitial opacity with peribronch ial cuffing as well. No bryon consolidation or pleural effusion. IMPRESSION: Increased diffuse interstitial opacities. Consider bronchitis, atypical pneumonias, or interstitial p neumonitis. [facility], , 07/20/2024 2:11 PM
[2024-07-20 14:35] LABS: ALT 77 U/L (4-49); AST 53 U/L (17-59); African American GFR (CKD) >90 (>60 ml/min/1.73 sqM); Albumin 3.7 g/dL (3.5-5.0); Alkaline Phosphatase 124 U/L (38-126); Anion Gap 7 mmol/L; Blood Urea Nitrogen 17 mg/dL (9-20); Calcium 8.8 mg/dL (8.4-10.2); Carbon Dioxide 24 mmol/L (22-30); Chloride 105 mmol/L (98-107); Glucose 117 mg/dL (74-99); Non-African American GFR(CKD) >90 (>60 ml/min/1.73 sqM); Potassium 4.3 mmol/L (3.5-5.1); Sodium 136 mmol/L (137-145); Total Bilirubin 0.9 mg/dL (0.2-1.3); Total Protein 6.7 g/dL (6.3-8.2)
[2024-07-20 14:43] LABS: NT-Pro-B-Type Natriuretic Pept 99 pg/mL
[2024-07-20] MEDS: methylPREDNISolone SOD SUCCI 125 MG/2 ML VIAL IV STA (16:21)
--- NOTE | 2024-07-20 16:44 | CT ---
EXAMINATION TYPE: CT chest angio for PE CT DLP: 1093.3 mGycm, Automated exposure control for dose reduction was used. DATE OF EXAM: 07/20/2024 3:58 PM COMPARISON: 09/10/2023 CLINICAL INDICATION: Male, 58 years old with history of hypoxia, leg pain, chest pain; Hypoxia, cough , chest pain, leg pain TECHNIQUE/CONTRAST: CTA scan of the thorax is performed with IV Contrast, patient injected with 150 mL of Isovue 370, MIP images are created and reviewed these are created on a separate workstation.. FINDINGS: Pulmonary Artery: There is no evidence for a filling defect within the pulmonary vasculature to sugge st acute pulmonary embolism. The pulmonary artery is of normal size. Lungs/Pleura: Intralobular septal thickening. Several scattered airspace opacities are seen throughou t the lungs most pronounced series 402 image 63 in the right upper lung No evidence of focal consolid ation, pleural effusion or pneumothorax. Airway: Large airways are patent. Heart: The heart is moderately enlarged for size. Vasculature: No evidence of aortic aneurysm. Mediastinum: Enlarged lymph nodes throughout the patient's mediastinum compared to prior exams with r ight low paratracheal measuring 12 mm in short axis, subcarinal measuring 22 mm in short axis. Subcar inal lymph node does measure up to 4.5 cm in caudocranial length. Musculoskeletal: No acute osseous pathology. Soft Tissues/lymph nodes: Unremarkable. Lower neck: No significant findings. Hypodensity within the left renal fossa possibly representing re nal calculi which are nonobstructing.1 Upper Abdomen: Low-attenuation to the liver parenchyma. IMPRESSION: 1. Motion limited exam no obvious pulmonary filling defect identified to suggest pulmonary embolus. Consider repeat exam if there remains concern for pulmonary embolus. 2. Cardiomegaly with pulmonary vascular congestion. Correlate with serum BNP. 3. Scattered sternal lymphadenopathy which has increased from 09/10/2023, unclear etiology findings could represent neoplastic process versus reactive changes to evidence of heart failure. 4. Scattered centrilobular airspace opacities most pronounced in the upper lung. Correlate for atypi rhiannon pneumonia. [facility], Workstation: [id number], 07/20/2024 4:41 PM
--- NOTE | 2024-07-20 16:52 | P.HPIM ---
History of Present Illness H&P Date: 07/20/24 History of Presenting Illness: Patient is a 1-year-old male with a past medical history of COPD not home oxygen dependent, nonischemic cardiomyopathy with recovered ejection fraction of 50 to 55% from previous 20 to 25%, borderline controlled diabetes with hemoglobin A1c of 6%, and previous nicotine use. He presented to the emergency department with a chief complaint of shortness of breath, fever, and cough x 4 to 5 days. Patient was transferred to our facility via EMS from [facility] where he initially presented with a chief complaint of shortness of breath and was found to be hypoxic with SpO2 in the 80s and transferred to our facility for further evaluation. COVID test at urgent care and home COVID test were both reported to be negative. Upon arrival to our facility, patient underwent evaluation in the emergency department. Signs upon arrival show blood pressure 129/82, heart rate 101, respiratory rate 22, temp 99.0 F, and SpO2 of 90% on room air. EKG completed showing sinus rhythm at 93 bpm with no significant T wave or ST abnormality showing no signs of acute ischemia upon personal review and interpretation. Chest x-ray completed revealing increased diffuse interstitial opacities concerning for atypical pneumonia. Labs completed and reviewed. CBC unremarkable. Coagulation profile showing low PTT of 20.6 and e levated D-dimer of 1.04. BMP unremarkable. Blood glucose 117. Lactic acid 1.0. Magnesium 2.0. Liver profile showing elevated ALT of 77 otherwise normal findings. Troponin was negative at less than 0.012 and proBNP was only 99. Influenza A, influenza B, RSV, and COVID PCR were negative. CTA chest was completed negative for pulmonary emboli showing cardiomegaly with pulmonary vascular congestion and scattered sternal lymphadenopathy with scattered centrilobular airspace opacities most pronounced in the upper lung concerning for atypical pneumonia. Patient was admitted under services with consultation to pulmonology. Review of systems: Pertinent positives and negatives as discussed in HPI, a complete review of systems was performed and all other systems are negative. Physical exam: Vital signs reviewed and stable. General: Nontoxic, no distress and appears stated age. Derm: Skin warm and dry, normal coloration for ethnicity. Head: Atraumatic, normocephalic and symmetric. Eyes: EOM's intact, no lid lag, and anicteric sclera Mouth: no lip lesions, mucus membranes moist Cardiovascular: regular rate and rhythm with normal S1S2, no murmur, positive posterior tibial pulses bilaterally, and cap refill < 2 seconds. Lungs: Respirations even, regular, and unlabored on room air. Lungs CTA bilaterally, no rhonchi, no rales, no wheezing, and no accessory muscle usage. Abdominal: soft, nontender to palpation, no guarding, no appreciable organomegaly Ext: ROM intact. No gross muscle atrophy, no edema, no contractures Neuro: Speech clear, face symmetrical and CN II-XII grossly intact with no noted focal neuro deficits Psych: Alert and oriented to person, place, time, and situation. Appropriate and pleasant affect. Assessment and Plan of Care: Acute respiratory failure with hypoxia COPD with acute exacerbation Multifocal pneumonia Nonischemic cardiomyopathy with recovered ejection fraction -CTA chest was completed negative for pulmonary emboli showing cardiomegaly with pulmonary vascular congestion and scattered sternal lymphadenopathy with scattered centrilobular airspace opacities most pronounced in the upper lung concerning for atypical pneumonia. -Oxygenation to be administered and titrated as needed to maintain SPO2 equal to or greater than 92% -Telemetry monitoring. -Monitor pulse-oximetry -Duonebs scheduled 4 times daily and as needed for SOB and/or wheezing -Incentive Spirometry -Steroids: Solu-Medrol 60 mg IVP every 6 hours -Antibiotics: Rocephin 2 g IVPB daily and azithromycin 500 mg IVPB daily. -Sputum culture to be obtained -Follow-up on blood culture results -Pulmonology consulted, appreciate recommendations. Data and imaging reviewed: As stated above in HPI The patient is admitted with an anticipated greater than 2 midnight stay for evaluation of multifocal pneumonia with acute respiratory failure CODE STATUS: Full code DVT prophylaxis: Lovenox Anticipated discharge date: Pending clinical course Anticipated discharge place: Home Patient was seen independently by Nurse Practitioner. This document was prepared using ttwick dictation software. Please allow for errors in edge brusher while rare they do occur. .I reviewed the documentation as provided by the TENISHA above, who is the original author of this note. I agree with the documented assessment and plan, with the following changes: none Past Medical History Past Medical History: No Reported History, Heart Failure, Diabetes Mellitus Additional Past Medical History / Comment(s): Arthritis in back/bilateral knees/wrists, basal cell skin cancer removed. History of Any Multi-Drug Resistant Organisms: None Reported Past Surgical History: No Surgical Hx Reported, Heart Catheterization Additional Past Surgical History / Comment(s): Skin cancer removed from face. Past Anesthesia/Blood Transfusion Reactions: Unable to Obtain Additional Past Anesthesia/Blood Transfusion Reaction / Comment(s): Pt has never had anesthesia. Past Psychological History: No Psychological Hx Reported Smoking Status: Former smoker Past Alcohol Use History: Rare Past Drug Use History: Marijuana - Past Family History Father Family Medical History: Congestive Heart Failure (CHF), Hyperlipidemia Additional Family Medical History / Comment(s): Father had leaky heart valves and from L sided heart failure. He had low iron and had high dose iron infusions. He had hypotension and PVCs. Mother Family Medical History: Coronary Artery Disease (CAD) Additional Family Medical History / Comment(s): Mother had cardiac stents. Medications and Allergies Home Medications Medication Instructions Recorded Confirmed Type Coricidin Hbp Chest Congestion And 1 - 2 tab PO Q4H PRN 07/20/24 07/20/24 History Cough Ibuprofen [Motrin Ib] 200 mg PO Q8H PRN 07/20/24 07/20/24 History Allergies Allergy/AdvReac Type Severity Reaction Status Date / Time hydrocodone [From [place]] Allergy Itching Verified 07/20/24 14:32 Physical Exam Vitals: Vital Signs Temp Pulse Resp BP Pulse Ox 07/20/24 15:24 98.6 F 93 18 154/91 95 07/20/24 13:00 105 H 22 94 L 07/20/24 12:49 99.0 F 101 H 22 129/82 90 L Intake and Output 07/20/24 07/20/24 07/20/24 06:59 14:59 22:59 Other: Weight 106.594 kg Results CBC & Chem 7: 07/23/24 02:33 07/23/24 02:33 Labs: Abnormal Lab Results - Last 24 Hours (Table) 07/20/24 07/20/24 Range/Units 13:14 13:14 APTT 20.6 L (22.0-30.0) sec D-Dimer 1.04 H (<0.60) mg/L FEU Sodium 136 L (137-145) mmol/L Creatinine 0.42 L (0.66-1.25) mg/dL Glucose 117 H (74-99) mg/dL ALT 77 H (4-49) U/L
[2024-07-20] MEDS ORDERED: PROCHLORPERAZINE INJ 10 MG/2 ML VIAL IVP PRN (17:01)
[2024-07-20] MEDS ORDERED: IPRATROPIUM-ALBUTEROL 3 ML NEB INHALATION PRN (17:02)
[2024-07-20] MEDS: IPRATROPIUM-ALBUTEROL 3 ML NEB INHALATION STA (17:51)
[2024-07-20] MEDS: ACETAMINOPHEN TAB 325 MG TAB PO PRN (18:00)
[2024-07-20] MEDS ORDERED: NALOXONE 0.4 MG/ML 1 ML VIAL IV PRN (18:13)
[2024-07-20] MEDS: AZITHROMYCIN 500 MG in SODIUM CHLORIDE 0.9% 250 ML IVPB SCH (18:25)
[2024-07-20] MEDS: IPRATROPIUM-ALBUTEROL 3 ML NEB INHALATION SCH (21:19)
[2024-07-20] MEDS: methylPREDNISolone SOD SUCCI 125 MG/2 ML VIAL IV SCH (21:30)
[2024-07-21] MEDS: ENOXAPARIN 40 MG/0.4 ML SYRINGE SQ SCH (08:21)
--- NOTE | 2024-07-21 08:45 | P.PN ---
Subjective Progress Note Date: 07/21/24 Hospital Course: Patient is a 1-year-old male with a past medical history of COPD not home oxygen dependent, nonischemic cardiomyopathy with recovered ejection fraction of 50 to 55% from previous 20 to 25%, borderline controlled diabetes with hemoglobin A1c of 6%, and previous nicotine use. He presented to the emergency department with a chief complaint of shortness of breath, fever, and cough x 4 to 5 days. Patient was transferred to our facility via EMS from [facility] where he initially presented with a chief complaint of shortness of breath and was found to be hypoxic with SpO2 in the 80s and transferred to our facility for further evaluation. COVID test at urgent care and home COVID test were both reported to be negative. Upon arrival to our facility, patient underwent evaluation in the emergency department. Signs upon arrival show blood pressure 129/82, heart rate 101, respiratory rate 22, temp 99.0 F, and SpO2 of 90% on room air. EKG completed showing sinus rhythm at 93 bpm with no significant T wave or ST abnormality showing no signs of acute ischemia upon personal review and interpretation. Chest x-ray completed revealing increased diffuse interstitial opacities concerning for atypical pneumonia. Labs completed and reviewed. CBC unremarkable. Coagulation profile showing low PTT of 20.6 and elevated D-dimer of 1.04. BMP unremarkable. Blood glucose 117. Lactic acid 1.0. Magnesium 2.0. Liver profile showing elevated ALT of 77 otherwise normal findings. Troponin was negative at less than 0.012 and proBNP was only 99. Influenza A, influenza B, RSV, and COVID PCR were negative. CTA chest was completed negative for pulmonary emboli showing cardiomegaly with pulmonary vascular congestion and scattered sternal lymphadenopathy with scattered centrilobular airspace opacities most pronounced in the upper lung concerning for atypical pneumonia. Patient was admitted under services with consultation to pulmonology. Physical exam: Patient seen and fully evaluated at bedside this morning. He appears to be doing well. Oxygen was turned down from 4 L down to 2 L this morning. Patient states he feels as though he is breathing much better today compared to but still not at baseline. Vital signs reviewed and stable. General: Nontoxic, no distress and appears stated age. Derm: Skin warm and dry, normal coloration for ethnicity. Head: Atraumatic, normocephalic and symmetric. Eyes: EOM's intact, no lid lag, and anicteric sclera Mouth: no lip lesions, mucus membranes moist Cardiovascular: regular rate and rhythm with normal S1S2, no murmur, positive posterior tibial pulses bilaterally, and cap refill < 2 seconds. Lungs: Respirations even, regular, and unlabored on supplemental oxygen. Lungs diminished with diffuse expiratory wheezes. No rhonchi, rales, or crackles noted. Abdominal: soft, nontender to palpation, no guarding, no appreciable organomegaly Ext: ROM intact. No gross muscle atrophy, no edema, no contractures Neuro: Speech clear, face symmetrical and CN II-XII grossly intact with no noted focal neuro deficits Psych: Alert and oriented to person, place, time, and situation. Appropriate and pleasant affect. Assessment and Plan of Care: Acute respiratory failure with hypoxia COPD with acute exacerbation Multifocal pneumonia Nonischemic cardiomyopathy with recovered ejection fraction -CTA chest was completed negative for pulmonary emboli showing cardiomegaly with pulmonary vascular congestion and scattered sternal lymphadenopathy with scattered centrilobular airspace opacities most pronounced in the upper lung concerning for atypical pneumonia. -Oxygenation to be administered and titrated as needed to maintain SPO2 equal to or greater than 92% -Telemetry monitoring. -Monitor pulse-oximetry -Duonebs scheduled 4 times daily and as needed for SOB and/or wheezing -Incentive Spirometry -Steroids: Solu-Medrol 60 mg IVP every 6 hours -Antibiotics: Rocephin 2 g IVPB daily and azithromycin 500 mg IVPB daily. -Sputum culture to be obtained -Follow-up on blood culture results -Pulmonology consulted, discussed with pulmonary [employer]ER. -Echocardiogram completed showing a preserved EF of 55 to 60% with mild mitral and tricuspid regurgitation and mild pulmonary hypertension. Data and imaging reviewed: Echocardiogram completed showing a preserved EF of 55 to 60% with mild mitral and tricuspid regurgitation and mild pulmonary hypertension. Morning labs reviewed. CBC remains unremarkable. BMP showing elevated anion gap of 14.0 and blood glucose of 233. Vital signs reviewed. Blood pressure 152/83, heart rate 98, respiratory rate 20, temp 98.4 F, and SpO2 of 91% on 2 L. CODE STATUS: Full code DVT prophylaxis: Lovenox Anticipated discharge date: Pending clinical course Anticipated discharge place: Home Patient was seen independently by Nurse Practitioner. This document was prepared using [employer] dictation software. Please allow for errors in territory outside sales manager while rare they do occur. I reviewed the documentation as provided by the TENISHA above, who is the original author of this note. I agree with the documented assessment and plan, with the following changes: none Objective - Vital Signs Vital signs: Vital Signs Temp 98.4 F 07/21/24 06:55 Pulse 98 07/21/24 06:55 Resp 20 07/21/24 06:55 BP 152/83 07/21/24 06:55 Pulse Ox 93 L 07/21/24 06:55 FiO2 Intake & Output 07/20/24 07/21/24 07/21/24 18:59 06:59 18:59 Weight 106.594 kg 106.594 kg - Labs CBC & Chem 7: 07/23/24 02:33 07/23/24 02:33 Labs: Abnormal Lab Results - Last 24 Hours (Table) 07/20/24 07/20/24 Range/Units 13:14 13:14 APTT 20.6 L (22.0-30.0) sec D-Dimer 1.04 H (<0.60) mg/L FEU Sodium 136 L (137-145) mmol/L Creatinine 0.42 L (0.66-1.25) mg/dL Glucose 117 H (74-99) mg/dL ALT 77 H (4-49) U/L
[2024-07-21 09:12] LABS: Basophils # (A) 0.02 X 10*3/uL (0.00-0.10); Basophils % (A) 0.3 %; Eosinophils # (A) 0 X 10*3/uL (0.04-0.35); Eosinophils % (A) 0 %; HCT 45.8 % (39.6-50.0); HGB 15.4 g/dL (13.0-17.0); Lymphocytes # (A) 0.73 X 10*3/uL (0.90-5.00); Lymphocytes % (A) 10.4 %; MCH 29.3 pg (27.0-32.0); MCHC 33.6 g/dL (32.0-37.0); MCV 87.2 FL (80.0-97.0); Mean Platelet Volume 10.2 FL (9.5-12.2); Monocytes # (A) 0.13 X 10*3/uL (0.20-1.00); Monocytes % (A) 1.8 %; NRBC Per 100 WBC 0 X 10*3/uL (0.00-0.01); Neutrophils # (A) 6.14 X 10*3/uL (1.80-7.70); Neutrophils % (A) 87.1 %; Platelet Count 289 X 10*3/uL (140-440); RBC 5.25 X 10*6/uL (4.40-5.60); RDW 13.3 % (11.5-14.5); WBC 7.05 X 10*3/uL (4.50-10.00)
[2024-07-21 09:17] LABS: BUN/Creat Ratio 25.33 Ratio (12.00-20.00); Blood Urea Nitrogen 15.2 mg/dL (9.0-27.0); Calcium 8.7 mg/dL (8.7-10.3); Chloride 101 mmol/L (96-109); Glucose 233 mg/dL (70-110); Potassium 4.8 mmol/L (3.5-5.5); Sodium 138 mmol/L (135-145)
--- NOTE | 2024-07-21 10:49 | CA ---
Transthoracic Echo Report Name: Elisabeth Dias Age: 58 Gender: M : 1965 Exam Date: 07/21/2024 09:05 Exam Location: [facility] Ht (in): 72 Wt (lb): 235 Ordering Physician: Mahesh Braga Attending/Referring Phys: Malcolm Bach MD ([id number]) [facility] RDCS Procedure CPT: Indications: Evaluate function and structure Cardiac Hx: Technical Quality: Fair Contrast 1: Total Dose (mL): Contrast 2: Total Dose (mL): MEASUREMENTS (Male / Female) Normal Values 2D ECHO LV Diastolic Diameter PLAX 5.3 cm 4.2 - 5.9 / 3.9 - 5.3 cm LV Systolic Diameter PLAX 3.7 cm IVS Diastolic Thickness 1.2 cm 0.6 - 1.0 / 0.6 - 0.9 cm LVPW Diastolic Thickness 1.2 cm 0.6 - 1.0 / 0.6 - 0.9 cm LV Relative Wall Thickness 0.5 LVOT Diameter 2.1 cm LV Diastolic Volume MOD BP 175.5 cm??? 67 - 155 / 56 - 104 cm??? LV Systolic Volume MOD BP 66.5 cm??? 22 - 58 / 19 - 49 cm??? LV Ejection Fraction MOD BP 62.1 % >= 55 % LV Cardiac Index MOD BP 4254.7 cm???/min???m??? LV Diastolic Volume MOD 4C 178.8 cm??? LV Systolic Volume MOD 4C 62.5 cm??? LV Ejection Fraction MOD 4C 65.1 % LV Cardiac Index MOD 4C 4541.9 cm???/min???m??? LV Diastolic Length 4C 9.1 cm LV Systolic Length 4C 7.2 cm LV Diastolic Volume MOD 2C 164.7 cm??? LV Systolic Volume MOD 2C 68.9 cm??? LV Ejection Fraction MOD 2C 58.2 % LV Cardiac Index MOD 2C 3739.7 cm???/min???m??? LV Diastolic Length 2C 9.6 cm LV Systolic Length 2C 7.5 cm LA Volume 59.0 cm??? 18 - 58 / 22 - 52 cm??? LA Volume Index 25.0 cm???/m??? 16 - 28 cm???/m??? Ascending Aorta Diameter 2.9 cm DOPPLER AV Peak Velocity 167.6 cm/s AV Peak Gradient 11.2 mmHg AV Mean Velocity 127.6 cm/s AV Mean Gradient 6.9 mmHg AV Velocity Time Integral 34.7 cm LVOT Peak Velocity 145.8 cm/s LVOT Peak Gradient 8.5 mmHg LVOT Velocity Time Integral 26.0 cm LVOT Stroke Volume 86.2 cm??? LVOT Stroke Volume Index 37.8 ml/m??? LVOT Cardiac Index 3364.8 cm???/min???m??? AV Area Cont Eq vti 2.5 cm??? AV Area Cont Eq pk 2.9 cm??? MV Peak Velocity 117.2 cm/s MV Peak Gradient 5.5 mmHg MV Mean Velocity 89.1 cm/s MV Mean Gradient 3.4 mmHg MV Velocity Time Integral 26.5 cm MV Area PHT 5.5 cm??? Mitral E Point Velocity 76.4 cm/s Mitral A Point Velocity 102.7 cm/s Mitral E to A Ratio 0.7 MV Deceleration Time 138.1 ms TR Peak Velocity 291.5 cm/s TR Peak Gradient 34.0 mmHg Right Atrial Pressure 5.0 mmHg Pulmonary Artery Systolic Pressu 39.0 mmHg Right Ventricular Systolic Press 39.0 mmHg PV Peak Velocity 125.8 cm/s PV Peak Gradient 6.3 mmHg FINDINGS Left Ventricle Left ventricular ejection fraction is estimated at 55-60 %. Mildly increased septal wall thickness. Mildly increased left ventricular diastolic volume. Mildly increased left ventricular systolic volume. No obvious regional wall motion abnormalities. Right Ventricle Normal right ventricular size and function. Mild pulmonary hypertension. Right Atrium Normal right atrial size. Left Atrium Normal left atrial size. Mitral Valve Mitral valve thickened. No evidence for mitral valve prolapse. Mild mitral stenosis. Mild mitral regurgitation. Aortic Valve Trileaflet aortic valve. Aortic valve sclerosis. No aortic valve stenosis or regurgitation. Tricuspid Valve Structurally normal tricuspid valve. No tricuspid stenosis. Mild tricuspid regurgitation. Pulmonic Valve Structurally normal pulmonic valve. No pulmonic stenosis. No pulmonic regurgitation. Pericardium No pericardial effusion. Echo free space anterior to the right ventricle likely represents a fat pad. Aorta Normal size aortic root and proximal ascending aorta. CONCLUSIONS Normal LV size and systolic function. Mild mitral and tricuspid regurgitation. Mild pulmonary hypertension. No clearcut pericardial effusion. Probable fat pad Previewed by: Dr. Rissa Mcneil MD (Electronically Signed) Final Date: 21 July 2024 10:48
[2024-07-21] MEDS ORDERED: DEXTROSE 50% SYRINGE 50 ML IVP PRN ×2 (12:12)
[2024-07-21] MEDS: INSULIN ASPART (NovoLOG) 100 UNIT/ML VIAL SQ SCH (12:53)
[2024-07-21 12:54] LABS: Glucose,Whole Blood 163 mg/dL (70-110)
--- NOTE | 2024-07-21 13:24 | P.CNPUL ---
History of Present Illness Consult date: 07/21/24 Requesting physician: Mahesh Braga Reason for consult: dyspnea, abnormal CXR/CT Chief complaint: Fever, shortness of breath, chest heaviness History of present illness: This is a pleasant 58-year-old male patient with a history of myocardial infarction, former smoker, occasional smoking of marijuana, occasional alcohol use who presented to the emergency room yesterday with a 5-day history of in creasing shortness of breath, cough, congestion, chest heaviness and fever up to 103.8 at home. Chest x-ray reveals increased diffuse interstitial opacities. EKG revealed sinus rhythm without ST or T wave abnormalities. CT angiogram ruled out pulmonary embolism. There is cardiomegaly with pulmonary vascular congestion. Scattered sternal lymphadenopathy possibly reactive versus neoplastic. Scattered centrilobular airspace opacities more pronounced in the upper lung. 7.0. Hemoglobin 15.4. Platelets 289. Sodium 138. Potassium 4.8. Bicarb 23. BUN 15. Creatinine 0.6. Glucose 233. Procalcitonin 0.09. Troponin negative x 1. proBNP 99. Viral screen negative. Echocardiogram revealed normal left ventricular size and systolic function. He is seen today in consultation on the regular medical floor. He is currently sitting up in bed. Awake and alert in no acute distress. He is maintaining good O2 saturations in the 90s on room air. He is currently afebrile. Hemodynamically stable. He does have a loose productive cough. Sputum culture pending. He was initiated on Rocephin and azithromycin. Review of Systems REVIEW OF SYSTEMS: CONSTITUTIONAL: Positive for fever, chest tightness denies any recent significant weight loss or weight gain. EYES: Denies change in vision. EARS, NOSE, MOUTH, THROAT: Denies headaches, denies sore throat. CARDIOVASCULAR: Denies chest pain, palpitations or syncopal episodes. RESPIRATORY: Positive for shortness of breath, cough, congestion no hemoptysis. GASTROINTESTINAL: Denies change in appetite, denies abdominal pain GENITOURINARY: Denies hematuria, denies infections. MUSKULOSKELETAL: Denies pain, denies swelling. INTEGUMENTARY: Denies rash, denies eczema. NEUROLOGICAL: Denies recent memory loss, no recent seizure activity. PSYCHIATRIC: Denies anxiety, denies depression. HEMATOLOGIC/LYMPHATIC: Denies anemia, denies enlarged lymph nodes. Past Medical History Past Medical History: No Reported History, Heart Failure, Diabetes Mellitus Additional Past Medical History / Comment(s): Arthritis in back/bilateral knees/wrists, basal cell skin cancer removed. Last Myocardial Infarction Date:: 03/2022 History of Any Multi-Drug Resistant Organisms: None Reported Date of last positivie culture/infection: 2022 MDRO Source:: under arm Past Surgical History: No Surgical Hx Reported, Heart Catheterization Additional Past Surgical History / Comment(s): Skin cancer removed from face. Past Anesthesia/Blood Transfusion Reactions: Unable to Obtain Additional Past Anesthesia/Blood Transfusion Reaction / Comment(s): Pt has never had anesthesia. Past Psychological History: No Psychological Hx Reported Smoking Status: Former smoker Past Alcohol Use History: Rare Past Drug Use History: Marijuana - Past Family History Father Family Medical History: Congestive Heart Failure (CHF), Hyperlipidemia Additional Family Medical History / Comment(s): Father had leaky heart valves and from L sided heart failure. He had low iron and had high dose iron infusions. He had hypotension and PVCs. Mother Family Medical History: Coronary Artery Disease (CAD) Additional Family Medical History / Comment(s): Mother had cardiac stents. Medications and Allergies Home Medications Medication Instructions Recorded Confirmed Type Coricidin Hbp Chest Congestion And 1 - 2 tab PO Q4H PRN 07/20/24 07/20/24 History Cough Ibuprofen [Motrin Ib] 200 mg PO Q8H PRN 07/20/24 07/20/24 History Allergies Allergy/AdvReac Type Severity Reaction Status Date / Time hydrocodone [From [place]] Allergy Itching Verified 07/20/24 14:32 Physical Exam Vitals: Vital Signs Temp Pulse Pulse Resp BP BP Pulse Ox 07/21/24 10:24 98 20 07/21/24 09:49 92 07/21/24 09:40 90 91 L 07/21/24 06:55 98.4 F 98 20 152/83 93 L 07/21/24 04:21 99.3 F 88 19 143/88 93 L 07/21/24 03:06 98.7 F 88 18 125/68 95 07/20/24 21:27 89 07/20/24 21:21 91 07/20/24 20:10 98.1 F 91 17 127/67 95 07/20/24 18:09 103 H 07/20/24 17:51 100 10/24/24 17:39 100.1 F H 105 H 24 157/90 93 L 07/20/24 15:24 98.6 F 93 18 154/91 95 FiO2 07/21/24 10:24 07/21/24 09:49 07/21/24 09:40 21 07/21/24 06:55 07/21/24 04:21 07/21/24 03:06 07/20/24 21:27 07/20/24 21:21 07/20/24 20:10 07/20/24 18:09 07/20/24 17:51 07/20/24 17:39 07/20/24 15:24 Intake and Output 07/20/24 07/21/24 07/21/24 22:59 06:59 14:59 Intake Total 200 Balance 200 Intake: Oral 200 Other: Weight 106.594 kg GENERAL EXAM: Alert, pleasant 58-year-old male, on room air, fairly comfortable in no apparent distress. HEAD: Normocephalic. EYES: Normal reaction of pupils, equal size. NOSE: Clear with pink turbinates. THROAT: No erythema or exudates. NECK: No masses, no JVD. CHEST: No chest wall deformity. LUNGS: Equal air entry with bilateral scattered rhonchi. CVS: S1 and S2 normal with no audible murmur, regular rhythm. ABDOMEN: No hepatosplenomegaly, normal bowel sounds, no guarding or rigidity. SPINE: No scoliosis or deformity SKIN: No rashes CENTRAL NERVOUS SYSTEM: No focal deficits, tone is normal in all 4 extremities. EXTREMITIES: There is no peripheral edema. No clubbing, no cyanosis. Peripheral pulses are intact. Results - Laboratory Findings CBC and BMP: 07/21/24 03:01 07/21/24 03:01 PT/INR, D-dimer PT 10.0 sec (10.0-12.5) 07/20/24 13:14 INR 0.9 (<1.2) 07/20/24 13:14 D-Dimer 1.04 mg/L FEU (<0.60) H 07/20/24 13:14 Abnormal lab findings: Abnormal Labs 07/20/24 07/20/24 07/21/24 13:14 13:14 03:01 Lymphocytes # 0.73 L Monocytes # 0.13 L Eosinophils # 0 L APTT 20.6 L D-Dimer 1.04 H Sodium 136 L Anion Gap Creatinine 0.42 L BUN/Creatinine Ratio Glucose 117 H POC Glucose (mg/dL) ALT 77 H 07/21/24 07/21/24 03:01 12:52 Lymphocytes # Monocytes # Eosinophils # APTT D-Dimer Sodium Anion Gap 14.00 H Creatinine BUN/Creatinine Ratio 25.33 H Glucose 233 H POC Glucose (mg/dL) 163 H ALT - Diagnostic Findings Chest x-ray: image reviewed CT scan - chest: image reviewed Assessment and Plan Assessment: Acute hypoxic respiratory failure secondary to suspected atypical pneumonia. Procalcitonin negative. Viral screen negative Enlarged mediastinal lymph nodes including subcarinal lymph node measuring up to 4.5 cm. Possibly reactive versus malignancy Febrile illness secondary to above Former tobacco smoker Current marijuana smoking History of myocardial infarction Plan: The patient was seen and evaluated Imaging, labs and medications reviewed Continue antibiotics for now Obtain a sputum sample Continue bronchodilators, steroids Lovenox for DVT prophylaxis May need outpatient PET scan We will continue to follow and make further recommendations based on his clinical status I have personally seen and examined the patient, performed the documentation and the assessment and plan as written. Number of minutes spent on the visit: 29 Dictation was produced using [employer] dictation software. Please excuse any grammatical, word or spelling errors.
[2024-07-21 17:33] LABS: Glucose,Whole Blood 232 mg/dL (70-110)
[2024-07-21 20:36] LABS: Glucose,Whole Blood 255 mg/dL (70-110)
[2024-07-21] MEDS: SYMBICORT 160-4.5 MCG INHALER INHALATION SCH (21:11)
[2024-07-22 06:13] LABS: Glucose,Whole Blood 325 mg/dL (70-110)
[2024-07-22 08:32] LABS: HCT 43.3 % (39.0-53.0); HGB 14.6 gm/dL (13.0-17.5); MCH 29.6 pg (25.0-35.0); MCHC 33.6 g/dL (31.0-37.0); MCV 88.1 fL (80.0-100.0); Mean Platelet Volume 8.6; Platelet Count 315 k/uL (150-450); RBC 4.92 m/uL (4.30-5.90); RDW 13.6 % (11.5-15.5); WBC 13.1 k/uL (3.8-10.6)
[2024-07-22 08:44] LABS: African American GFR (CKD) >90 (>60 ml/min/1.73 sqM); Anion Gap 8 mmol/L; Blood Urea Nitrogen 22 mg/dL (9-20); Calcium 8.8 mg/dL (8.4-10.2); Carbon Dioxide 27 mmol/L (22-30); Chloride 103 mmol/L (98-107); Glucose 208 mg/dL (74-99); Magnesium 2.2 mg/dL (1.6-2.3); Non-African American GFR(CKD) >90 (>60 ml/min/1.73 sqM); Sodium 138 mmol/L (137-145)
[2024-07-22 11:27] LABS: Glucose,Whole Blood 284 mg/dL (70-110)
--- NOTE | 2024-07-22 12:26 | P.PN ---
Subjective Progress Note Date: 07/22/24 This is a pleasant 58-year-old male patient with a history of myocardial infarction, former smoker, occasional smoking of marijuana, occasional alcohol use who presented to the emergency room yesterday with a 5-day history of increasing shortness of breath, cough, congestion, chest heaviness and fever up to 103.8 at home. Chest x-ray reveals increased diffuse interstitial opacities. EKG revealed sinus rhythm without ST or T wave abnormalities. CT angiogram ruled out pulmonary embolism. There is cardiomegaly with pulmonary vascular congestion. Scattered sternal lymphadenopathy possibly reactive versus neoplastic. Scattered centrilobular airspace opacities more pronounced in the upper lung. 7.0. Hemoglobin 15.4. Platelets 289. Sodium 138. Potassium 4.8. Bicarb 23. BUN 15. Creatinine 0.6. Glucose 233. Procalcitonin 0.09. Troponin negative x 1. proBNP 99. Viral screen negative. Echocardiogram revealed normal left ventricular size and systolic function. He is seen today in consultation on the regular medical floor. He is currently sitting up in bed. Awake and alert in no acute distress. He is maintaining good O2 saturations in the 90s on room air. He is currently afebrile. Hemodynamically stable. He does have a loose productive cough. Sputum culture pending. He was initiated on Rocephin and azithromycin. The patient is seen today July 22, 2024 in follow-up on the regular medical floor. He is currently sitting up in bed. Awake and alert in no acute distr ess. Denies any worsening shortness of breath, cough or congestion. He is feeling better. Not quite back to his baseline. He is continued on DuoNeb and elations, Symbicort, Solu-Medrol. Antibiotics in the form of Rocephin. Blood culture pending. White count 13.1. Hemoglobin 14.6. Platelets 315. Sodium 138. Potassium 5.0. Bicarb 27. BUN 22. Creatinine 0.57. Glucose 208. Objective - Vital Signs Vital signs: Vital Signs Temp 99.1 F 07/22/24 07:38 Pulse 84 07/22/24 09:36 Resp 20 07/22/24 07:38 BP 156/81 07/22/24 07:38 Pulse Ox 93 L 07/22/24 09:24 FiO2 21 07/21/24 09:40 Intake & Output 07/21/24 07/22/24 07/22/24 18:59 06:59 18:59 Intake Total 750 Output Total 1500 Balance -750 Intake: Oral 750 Output: Gastric Drainage 750 Urine 750 Other: # Voids 3 - Exam GENERAL EXAM: Alert,-year-old male, sitting up in bed, on 2 L nasal cannula, comfortable in no apparent distress. HEAD: Normocephalic. EYES: Normal reaction of pupils, equal size. NOSE: Clear with pink turbinates. THROAT: No erythema or exudates. NECK: No masses, no JVD. CHEST: No chest wall deformity. LUNGS: Equal air entry with bilateral wheezing, scattered rhonchi. CVS: S1 and S2 normal with no audible murmur, regular rhythm. ABDOMEN: No hepatosplenomegaly, normal bowel sounds, no guarding or rigidity. SPINE: No scoliosis or deformity SKIN: No rashes CENTRAL NERVOUS SYSTEM: No focal deficits, tone is normal in all 4 extremities. EXTREMITIES: There is no peripheral edema. No clubbing, no cyanosis. Peripheral pulses are intact. - Labs CBC & Chem 7: 07/22/24 02:56 07/22/24 02:56 Labs: Abnormal Lab Results - Last 24 Hours (Table) 07/21/24 07/21/24 07/21/24 Range/Units 12:52 17:32 19:45 WBC (3.8-10.6) k/uL BUN (9-20) mg/dL Creatinine (0.66-1.25) mg/dL Glucose (74-99) mg/dL POC Glucose (mg/dL) 163 H 232 H 255 H (70-110) mg/dL Hemoglobin A1c (<=6.0) % 07/22/24 07/22/24 07/22/24 Range/Units 02:46 02:56 02:56 WBC 13.1 H (3.8-10.6) k/uL BUN 22 H (9-20) mg/dL Creatinine 0.57 L (0.66-1.25) mg/dL Glucose 208 H (74-99) mg/dL POC Glucose (mg/dL) (70-110) mg/dL Hemoglobin A1c 6.3 H (<=6.0) % 07/22/24 07/22/24 Range/Units 06:11 11:26 WBC (3.8-10.6) k/uL BUN (9-20) mg/dL Creatinine (0.66-1.25) mg/dL Glucose (74-99) mg/dL POC Glucose (mg/dL) 325 H 284 H (70-110) mg/dL Hemoglobin A1c (<=6.0) % Microbiology - Last 24 Hours (Table) 07/20/24 17:41 Blood Culture - Preliminary Blood Assessment and Plan Assessment: Acute hypoxic respiratory failure secondary to suspected atypical pneumonia. Procalcitonin negative. Viral screen negative Enlarged mediastinal lymph nodes including subcarinal lymph node measuring up to 4.5 cm. Possibly reactive versus malignancy Febrile illness secondary to above Former tobacco smoker Current marijuana smoking History of myocardial infarction Plan: The patient was seen and evaluated Labs and medications reviewed MALIK level pending Continue the current treatment plan Follow-up chest x-ray in a.m. We will continue to follow I have personally seen and examined the patient, performed the documentation and the assessment and plan as written. Number of minutes spent on the visit: 10 Dictation was produced using [employer] dictation software. Please excuse any grammatical, word or spelling errors.
--- NOTE | 2024-07-22 14:25 | P.PN ---
Subjective Progress Note Date: 07/22/24 Hospital Course: Patient is a 1-year-old male with a past medical history of COPD not home oxygen dependent, nonischemic cardiomyopathy with recovered ejection fraction of 50 to 55% from previous 20 to 25%, borderline controlled diabetes with hemoglobin A1c of 6%, and previous nicotine use. He presented to the emergency department with a chief complaint of shortness of breath, fever, and cough x 4 to 5 days. Patient was transferred to our facility via EMS from [facility] where he initially presented with a chief complaint of shortness of breath and was found to be hypoxic with SpO2 in the 80s and transferred to our facility for further evaluation. COVID test at urgent care and home COVID test were both reported to be negative. Upon arrival to our facility, patient underwent evaluation in the emergency department. Signs upon arrival show blood pressure 129/82, heart rate 101, respiratory rate 22, temp 99.0 F, and SpO2 of 90% on room air. EKG completed showing sinus rhythm at 93 bpm with no significant T wave or ST abnormality showing no signs of acute ischemia upon personal review and interpretation. Chest x-ray completed revealing increased diffuse interstitial opacities concerning for atypical pneumonia. Labs completed and reviewed. CBC unremarkable. Coagulation profile showing low PTT of 20.6 and elevated D-dimer of 1.04. BMP unremarkable. Blood glucose 117. Lactic acid 1.0. Magnesium 2.0. Liver profile showing elevated ALT of 77 otherwise normal findings. Troponin was negative at less than 0.012 and proBNP was only 99. Influenza A, influenza B, RSV, and COVID PCR were negative. CTA chest was completed negative for pulmonary emboli showing cardiomegaly with pulmonary vascular congestion and scattered sternal lymphadenopathy with scattered centrilobular airspace opacities most pronounced in the upper lung concerning for atypical pneumonia. Patient was admitted under services with consultation to pulmonology. Physical exam: Patient seen and fully evaluated at bedside this morning. He reports feeling about the same as yesterday which was improved from when he got here but still not back to baseline. Oxygen was turned down from 4 L down to 2 L this morning. Patient states he feels as though he is breathing much better today compared to yesterday but still not at baseline. He is currently on 2 L O2 with SpO2 of 93%. Vital signs reviewed and stable. General: Nontoxic, no distress and appears stated age. Derm: Skin warm and dry, normal coloration for ethnicity. Head: Atraumatic, normocephalic and symmetric. Eyes: EOM's intact, no lid lag, and anicteric sclera Mouth: no lip lesions, mucus membranes moist Cardiovascular: regular rate and rhythm with normal S1S2, no murmur, positive posterior tibial pulses bilaterally, and cap refill < 2 seconds. Lungs: Respirations even, regular, and unlabored on supplemental oxygen. Lungs diminished with diffuse expiratory wheezes. No rhonchi, rales, or crackles noted. Abdominal: soft, nontender to palpation, no guarding, no appreciable organomegaly Ext: ROM intact. No gross muscle atrophy, no edema, no contractures Neuro: Speech clear, face symmetrical and CN II-XII grossly intact with no noted focal neuro deficits Psych: Alert and oriented to person, place, time, and situation. Appropriate and pleasant affect. Assessment and Plan of Care: Acute respiratory failure with hypoxia COPD with acute exacerbation Multifocal pneumonia Nonischemic cardiomyopathy with recovered ejection fraction -CTA chest was completed negative for pulmonary emboli showing cardiomegaly with pulmonary vascular congestion and scattered sternal lymphadenopathy with scattered centrilobular airspace opacities most pronounced in the upper lung concerning for atypical pneumonia. -Oxygenation to be administered and titrated as needed to maintain SPO2 equal to or greater than 92% -Telemetry monitoring. -Monitor pulse-oximetry -Duonebs scheduled 4 times daily and as needed for SOB and/or wheezing -Incentive Spirometry -Steroids: Solu-Medrol 60 mg IVP every 6 hours -Antibiotics: Rocephin 2 g IVPB daily and azithromycin 500 mg IVPB daily. -Sputum culture pending. -Blood cultures showing no growth to date. -Pulmonology consulted, discussed with pulmonary SNACK STEWARD. -Echocardiogram completed showing a preserved EF of 55 to 60% with mild mitral and tricuspid regurgitation and mild pulmonary hypertension. Data and imaging reviewed: Morning labs reviewed. CBC showing leukocytosis with WBC count of 13.1. BMP showing mild prerenal azotemia with BUN of 22 otherwise normal findings. Blood glucose 208. Hemoglobin A1c elevated at 6.3%. -Blood culture showing no growth to date. -Sputum culture pending. Vital signs reviewed. Blood pressure 156/81, heart rate 80, respiratory rate 20, temp 99.1 F, and SpO2 of 93% on 2 L. CODE STATUS: Full code DVT prophylaxis: Lovenox Anticipated discharge date: Pending clinical course Anticipated discharge place: Home Patient was seen independently by Nurse Practitioner. This document was prepared using [employer] dictation software. Please allow for errors in crm dynamics developer while rare they do occur. I reviewed the documentation as provided by the TENISHA above, who is the original author of this note. I agree with the documented assessment and plan, with the following changes: none Objective - Vital Signs Vital signs: Vital Signs Temp 98 F 07/22/24 02:00 Pulse 74 07/22/24 02:00 Resp 19 07/22/24 02:00 BP 143/80 07/22/24 02:00 Pulse Ox 94 L 07/22/24 02:00 FiO2 21 07/21/24 09:40 Intake & Output 07/21/24 07/22/24 07/22/24 18:59 06:59 18:59 Intake Total 750 Output Total 1500 Balance -750 Intake: Oral 750 Output: Gastric Drainage 750 Urine 750 Other: # Voids 3 - Labs CBC & Chem 7: 07/23/24 02:33 07/23/24 02:33 Labs: Abnormal Lab Results - Last 24 Hours (Table) 07/21/24 07/21/24 07/21/24 Range/Units 03:01 03:01 12:52 Lymphocytes # 0.73 L (0.90-5.00) X 10*3/uL Monocytes # 0.13 L (0.20-1.00) X 10*3/uL Eosinophils # 0 L (0.04-0.35) X 10*3/uL Anion Gap 14.00 H (4.00-12.00) mmol/L BUN/Creatinine Ratio 25.33 H (12.00-20.00) Ratio Glucose 233 H (70-110) mg/dL POC Glucose (mg/dL) 163 H (70-110) mg/dL 07/21/24 07/21/24 07/22/24 Range/Units 17:32 19:45 06:11 Lymphocytes # (0.90-5.00) X 10*3/uL Monocytes # (0.20-1.00) X 10*3/uL Eosinophils # (0.04-0.35) X 10*3/uL Anion Gap (4.00-12.00) mmol/L BUN/Creatinine Ratio (12.00-20.00) Ratio Glucose (70-110) mg/dL POC Glucose (mg/dL) 232 H 255 H 325 H (70-110) mg/dL Microbiology - Last 24 Hours (Table) 07/20/24 17:41 Blood Culture - Preliminary Blood
[2024-07-22] MEDS: HYDROcodone/APAP 5-325MG 1 EACH TAB PO PRN (16:36)
[2024-07-22 16:51] LABS: Glucose,Whole Blood 356 mg/dL (70-110)
[2024-07-22 20:05] LABS: Glucose,Whole Blood 254 mg/dL (70-110)
[2024-07-23 06:11] LABS: Glucose,Whole Blood 182 mg/dL (70-110)
--- NOTE | 2024-07-23 07:20 | XR ---
EXAMINATION TYPE: XR chest 1V portable DATE OF EXAM: 07/23/2024 Comparison: 07/20/2024 Clinical History: 58-year-old male Atypical pneumonia Findings: Heart and bones are normal in size. Mild interstitial densities persist. No progression to consolidat ion or pleural effusion. Impression: Diffuse bilateral interstitial densities are similar. [facility] Yudy Winchester, , 07/23/2024 7:17 AM
[2024-07-23 08:00] VITALS: RESP 18
[2024-07-23 09:41] LABS: HCT 43.4 % (39.6-50.0); HGB 14.4 g/dL (13.0-17.0); MCH 29.4 pg (27.0-32.0); MCHC 33.2 g/dL (32.0-37.0); MCV 88.6 FL (80.0-97.0); Mean Platelet Volume 10.2 FL (9.5-12.2); NRBC Per 100 WBC 0 X 10*3/uL (0.00-0.01); Platelet Count 314 X 10*3/uL (140-440); RDW 13.6 % (11.5-14.5)
[2024-07-23 09:50] LABS: ALT 84 U/L (10-49); AST 36 U/L (14-35); Albumin 3.6 g/dL (3.8-4.9); Albumin/Globulin Ratio 1.38 Ratio (1.60-3.17); Alkaline Phosphatase 120 U/L (41-126); Blood Urea Nitrogen 16.2 mg/dL (9.0-27.0); Calcium 8.6 mg/dL (8.7-10.3); Carbon Dioxide 25.3 mmol/L (21.6-31.8); Chloride 101 mmol/L (96-109); Globulin 2.6 g/dL (1.6-3.3); Glucose 330 mg/dL (70-110); Magnesium 2.3 mg/dL (1.5-2.4); Sodium 137 mmol/L (135-145); Total Bilirubin <0.2 mg/dL (0.3-1.2); Total Protein 6.2 g/dL (6.2-8.2)
[2024-07-23 11:25] LABS: Glucose,Whole Blood 185 mg/dL (70-110)
--- NOTE | 2024-07-23 12:36 | P.PN ---
Subjective Progress Note Date: 07/23/24 This is a pleasant 58-year-old male patient with a history of myocardial infarction, former smoker, occasional smoking of marijuana, occasional alcohol use who presented to the emergency room yesterday with a 5-day history of increasing shortness of breath, cough, congestion, chest heaviness and fever up to 103.8 at home. Chest x-ray reveals increased diffuse interstitial opacities. EKG revealed sinus rhythm without ST or T wave abnormalities. CT angiogram ruled out pulmonary embolism. There is cardiomegaly with pulmonary vascular congestion. Scattered sternal lymphadenopathy possibly reactive versus neoplastic. Scattered centrilobular airspace opacities more pronounced in the upper lung. 7.0. Hemoglobin 15.4. Platelets 289. Sodium 138. Potassium 4.8. Bicarb 23. BUN 15. Creatinine 0.6. Glucose 233. Procalcitonin 0.09. Troponin negative x 1. proBNP 99. Viral screen negative. Echocardiogram revealed normal left ventricular size and systolic function. He is seen today in consultation on the regular medical floor. He is currently sitting up in bed. Awake and alert in no acute distress. He is maintaining good O2 saturations in the 90s on room air. He is currently afebrile. Hemodynamically stable. He does have a loose productive cough. Sputum culture pending. He was initiated on Rocephin and azithromycin. The patient is seen today July 22, 2024 in follow-up on the regular medical floor. He is currently sitting up in bed. Awake and alert in no acute distr ess. Denies any worsening shortness of breath, cough or congestion. He is feeling better. Not quite back to his baseline. He is continued on DuoNeb and elations, Symbicort, Solu-Medrol. Antibiotics in the form of Rocephin. Blood culture pending. White count 13.1. Hemoglobin 14.6. Platelets 315. Sodium 138. Potassium 5.0. Bicarb 27. BUN 22. Creatinine 0.57. Glucose 208. The patient is seen today July 23, 2024 in follow-up on the regular medical floor. He is awake and alert in no acute distress. Feeling better today compared to yesterday. Denies any worsening shortness of breath, cough or congestion. Chest x-ray shows improved bilateral interstitial densities. Blood culture reveals no growth. White count 15.7. Hemoglobin 14.4. Platelets 314. Sodium 137. Potassium 5.0. Bicarb 25. BUN 16. Creatinine 0.6. Glucose 185. He remains on ceftriaxone. Continue DuoNeb ventilations, Symbicort, Solu- Medrol. Lovenox for DVT prophylaxis. Objective - Vital Signs Vital signs: Vital Signs Temp 98.4 F 07/23/24 07:17 Pulse 84 07/23/24 12:00 Resp 18 07/23/24 07:17 BP 151/78 07/23/24 07:17 Pulse Ox 88 L 07/23/24 10:53 FiO2 21 07/21/24 09:40 Intake & Output 07/22/24 07/23/24 07/23/24 18:59 06:59 18:59 Other: Voiding Method Toilet # Voids 3 - Exam GENERAL EXAM: Alert, 58 year-old male, on 2 L nasal cannula, in no apparent distress. HEAD: Normocephalic. EYES: Normal reaction of pupils, equal size. NOSE: Clear with pink turbinates. THROAT: No erythema or exudates. NECK: No masses, no JVD. CHEST: No chest wall deformity. LUNGS: Equal air entry with bilateral wheezing, scattered rhonchi. CVS: S1 and S2 normal with no audible murmur, regular rhythm. ABDOMEN: No hepatosplenomegaly, normal bowel sounds, no guarding or rigidity. SPINE: No scoliosis or deformity SKIN: No rashes CENTRAL NERVOUS SYSTEM: No focal deficits, tone is normal in all 4 extremities. EXTREMITIES: There is no peripheral edema. No clubbing, no cyanosis. Peripheral pulses are intact. - Labs CBC & Chem 7: 07/23/24 02:33 07/23/24 02:33 Labs: Abnormal Lab Results - Last 24 Hours (Table) 07/22/24 07/22/24 07/23/24 Range/Units 16:50 20:04 02:33 WBC 15.70 H (4.50-10.00) X 10*3/uL BUN/Creatinine Ratio (12.00-20.00) Ratio Glucose (70-110) mg/dL POC Glucose (mg/dL) 356 H 254 H (70-110) mg/dL Calcium (8.7-10.3) mg/dL Total Bilirubin (0.3-1.2) mg/dL AST (14-35) U/L ALT (10-49) U/L Albumin (3.8-4.9) g/dL Albumin/Globulin Ratio (1.60-3.17) Ratio 07/23/24 07/23/24 07/23/24 Range/Units 02:33 06:09 11:24 WBC (4.50-10.00) X 10*3/uL BUN/Creatinine Ratio 27.00 H (12.00-20.00) Ratio Glucose 330 H (70-110) mg/dL POC Glucose (mg/dL) 182 H 185 H (70-110) mg/dL Calcium 8.6 L (8.7-10.3) mg/dL Total Bilirubin <0.2 L (0.3-1.2) mg/dL AST 36 H (14-35) U/L ALT 84 H (10-49) U/L Albumin 3.6 L (3.8-4.9) g/dL Albumin/Globulin Ratio 1.38 L (1.60-3.17) Ratio Microbiology - Last 24 Hours (Table) 07/20/24 17:41 Blood Culture - Preliminary Blood Assessment and Plan Assessment: Acute hypoxic respiratory failure secondary to suspected atypical pneumonia. Procalcitonin negative. Viral screen negative Enlarged mediastinal lymph nodes including subcarinal lymph node measuring up to 4.5 cm. Possibly reactive versus malignancy Febrile illness secondary to above Former tobacco smoker Current marijuana smoking History of myocardial infarction Plan: The patient was seen and evaluated Chest x-ray, labs and medications reviewed MALIK level still pending Continue the current treatment plan Probable discharge in the a.m. We will continue to follow I have personally seen and examined the patient, performed the documentation and the assessment and plan as written. Number of minutes spent on the visit: 10 Dictation was produced using [employer] software. Please excuse any grammatical, word or spelling errors.
--- NOTE | 2024-07-23 14:02 | P.PN ---
Subjective Progress Note Date: 07/23/24 Hospital Course: Patient is a 58-year-old male with a past medical history of COPD not home oxygen dependent, nonischemic cardiomyopathy with recovered ejection fraction of 50 to 55% from previous 20 to 25%, borderline controlled diabetes with hemoglobin A1c of 6%, and previous nicotine use. He presented to the emergency department with a chief complaint of shortness of breath, fever, and cough x 4 to 5 days. Patient was transferred to our facility via EMS from [facility] where he initially presented with a chief complaint of shortness of breath and was found to be hypoxic with SpO2 in the 80s and transferred to our facility for further evaluation. COVID test at urgent care and home COVID test were both reported to be negative. Upon arrival to our facility, patient underwent evaluation in the emergency department. Signs upon arrival show blood pressure 129/82, heart rate 101, respiratory rate 22, temp 99.0 F, and SpO2 of 90% on room air. EKG completed showing sinus rhythm at 93 bpm with no significant T wave or ST abnormality showing no signs of acute ischemia upon personal review and interpretation. Chest x-ray completed revealing increased diffuse interstitial opacities concerning for atypical pneumonia. Labs completed and reviewed. CBC unremarkable. Coagulation profile showing low PTT of 20.6 and elevated D-dimer of 1.04. BMP unremarkable. Blood glucose 117. Lactic acid 1.0. Magnesium 2.0. Liver profile showing elevated ALT of 77 otherwise normal findings. Troponin was negative at less than 0.012 and proBNP was only 99. Influenza A, influenza B, RSV, and COVID PCR were negative. CTA chest was completed negative for pulmonary emboli showing cardiomegaly with pulmonary vascular congestion and scattered sternal lymphadenopathy with scattered centrilobular airspace opacities most pronounced in the upper lung concerning for atypical pneumonia. Patient was admitted under services with consultation to pulmonology. Physical exam: Patient seen and fully evaluated at bedside this morning. He reports feeling about the same as yesterday which was improved from when he got here but still not back to baseline. Oxygen was turned down from 4 L down to 2 L this morning. Patient states he feels as though he is breathing much better today compared to yesterday but still not at baseline. He is currently on 2 L O2 with SpO2 of 93%. Vital signs reviewed and stable. General: Nontoxic, no distress and appears stated age. Derm: Skin warm and dry, normal coloration for ethnicity. Head: Atraumatic, normocephalic and symmetric. Eyes: EOM's intact, no lid lag, and anicteric sclera Mouth: no lip lesions, mucus membranes moist Cardiovascular: regular rate and rhythm with normal S1S2, no murmur, positive posterior tibial pulses bilaterally, and cap refill < 2 seconds. Lungs: Respirations even, regular, and unlabored on room air. Lungs diminished with diffuse expiratory wheezes. No rhonchi, rales, or crackles noted. Abdominal: soft, nontender to palpation, no guarding, no appreciable organomegaly Ext: ROM intact. No gross muscle atrophy, no edema, no contractures Neuro: Speech clear, face symmetrical and CN II-XII grossly intact with no noted focal neuro deficits Psych: Alert and oriented to person, place, time, and situation. Appropriate and pleasant affect. Assessment and Plan of Care: Acute respiratory failure with hypoxia COPD with acute exacerbation Multifocal pneumonia Nonischemic cardiomyopathy with recovered ejection fraction -CTA chest was completed negative for pulmonary emboli showing cardiomegaly with pulmonary vascular congestion and scattered sternal lymphadenopathy with scattered centrilobular airspace opacities most pronounced in the upper lung concerning for atypical pneumonia. -Patient weaned off of oxygen maintaining SpO2 of 92% on room air. Home oxygen evaluation was completed and patient desaturating down to 88% with activity. -Telemetry monitoring. -Monitor pulse-oximetry -Duonebs scheduled 4 times daily and as needed for SOB and/or wheezing -Incentive Spirometry -Steroids: Solu-Medrol 60 mg IVP every 6 hours -Antibiotics: Patient completed 3-day course of azithromycin and currently on day 4 of 5 of Rocephin 2 g IVPB daily. -Sputum culture pending. -Blood cultures showing no growth to date. -Pulmonology consulted, discussed with pulmonary ANTI [employer] MISSILEMAN and they are recommending continuing to monitoring overnight with possible pulmonary clearance for discharge tomorrow morning. -Echocardiogram completed showing a preserved EF of 55 to 60% with mild mitral and tricuspid regurgitation and mild pulmonary hypertension. Hyperglycemia, newly diagnosed type 2 diabetes mellitus -Hemoglobin A1c 6.3%. Will plan to discharge home on metformin 500 mg twice daily. -Current elevated blood glucose levels elevated due to steroids. Leukocytosis -Believed to be reactive secondary to administration of steroids. Data and imaging reviewed: Morning labs reviewed. CBC showing leukocytosis with WBC count of 15.70. BMP showing mild prerenal azotemia with BUN of 22 otherwise normal findings. Blood glucose 208. Hemoglobin A1c elevated at 6.3%. -Blood culture showing no growth to date. -Sputum culture pending. Vital signs reviewed. Blood pressure 151/78, heart rate 75, respiratory rate 18, temp 98.4 F, and SpO2 of 92% on room air. CODE STATUS: Full code DVT prophylaxis: Lovenox Anticipated discharge date: Likely tomorrow morning Anticipated discharge place: Home Patient was seen independently by Nurse Practitioner. This document was prepared using [employer] dictation software. Please allow for errors in photoflash powder mixer while rare they do occur. I reviewed the documentation as provided by the TENISHA above, who is the original author of this note. I agree with the documented assessment and plan, with the following changes: none Objective - Vital Signs Vital signs: Vital Signs Temp 98.4 F 07/23/24 07:17 Pulse 75 07/23/24 07:17 Resp 18 07/23/24 07:17 BP 151/78 07/23/24 07:17 Pulse Ox 92 L 07/23/24 07:17 FiO2 21 07/21/24 09:40 Intake & Output 07/22/24 07/23/24 07/23/24 18:59 06:59 18:59 Other: Voiding Method Toilet # Voids 3 - Labs CBC & Chem 7: 07/23/24 02:33 07/23/24 02:33 Labs: Abnormal Lab Results - Last 24 Hours (Table) 07/22/24 07/22/24 07/22/24 Range/Units 02:46 02:56 02:56 WBC 13.1 H (3.8-10.6) k/uL BUN 22 H (9-20) mg/dL Creatinine 0.57 L (0.66-1.25) mg/dL Glucose 208 H (74-99) mg/dL POC Glucose (mg/dL) (70-110) mg/dL Hemoglobin A1c 6.3 H (<=6.0) % 07/22/24 07/22/24 07/22/24 Range/Units 11:26 16:50 20:04 WBC (3.8-10.6) k/uL BUN (9-20) mg/dL Creatinine (0.66-1.25) mg/dL Glucose (74-99) mg/dL POC Glucose (mg/dL) 284 H 356 H 254 H (70-110) mg/dL Hemoglobin A1c (<=6.0) % 07/23/24 Range/Units 06:09 WBC (3.8-10.6) k/uL BUN (9-20) mg/dL Creatinine (0.66-1.25) mg/dL Glucose (74-99) mg/dL POC Glucose (mg/dL) 182 H (70-110) mg/dL Hemoglobin A1c (<=6.0) % Microbiology - Last 24 Hours (Table) 07/20/24 17:41 Blood Culture - Preliminary Blood
[2024-07-23 16:18] LABS: Glucose,Whole Blood 243 mg/dL (70-110)
[2024-07-23 21:19] LABS: Glucose,Whole Blood 264 mg/dL (70-110)
[2024-07-24] MEDS: MELATONIN 3 MG TABLET PO PRN (04:08)
[2024-07-24 06:35] LABS: Glucose,Whole Blood 179 mg/dL (70-110)
[2024-07-24 07:41] VITALS: BP 151/95; TEMP 97.6
--- NOTE | 2024-07-24 10:32 | P.DS ---
Providers Date of admission: 07/20/24 17:03 Expected date of discharge: 07/24/24 Attending physician: Cresencio Navarrete Consults: 07/20/24 16:54 Consult Physician Routine Consulting Provider: Kt Alaniz Consult Reason/Comments: COPD exacerbation, pneumonia, scattered sternal lymphadenopathy Do you want consulting provider notified?: Yes Primary care physician: Mina Parks Hospital Course: Discharge Diagnosis: Acute respiratory failure with hypoxia. Resolved. Patient successfully weaned off of supplemental oxygen and maintaining SpO2 94% on room air with rest and 91% on room air with exertion. COPD with acute exacerbation. Pt was discharged home with Symbicort inhaler, DuoNeb nebulizer treatments, Medrol Dosepak, and albuterol inhaler. Patient to follow-up outpatient with PCP in 1 to 2 days and mold puller in 1 week. Multifocal pneumonia. Patient completed antibiotic therapy. He received 3-day course of azithromycin and 5-day course of Rocephin. Nonischemic cardiomyopathy with recovered ejection fraction. Echocardiogram completed showing a preserved EF of 55 to 60% with mild mitral and tricuspid regurgitation and mild pulmonary hypertension. Scattered sternal lymphadenopathy. Possibly reactive however patient will require outpatient surveillance/monitoring with repeat CT to assure resolution and if remains, will need additional testing such as PET scan. Patient educated on this and verbalized understanding that he will need to follow-up with mold puller as discussed. Hyperglycemia, newly diagnosed type 2 diabetes mellitus. Patient discharged home on metformin 500 mg twice daily and provided with glucometer and testing supplies. Leukocytosis. Believed to be reactive secondary to administration of steroids. Hospital Course: Patient is a 58-year-old male with a past medical history of COPD not home oxygen dependent, nonischemic cardiomyopathy with recovered ejection fraction of 50 to 55% from previous 20 to 25%, borderline controlled diabetes with hemoglobin A1c of 6%, and previous nicotine use. He presented to the emergency department with a chief complaint of shortness of breath, fever, and cough x 4 to 5 days. Patient was transferred to our facility via EMS from [facility] where he initially presented with a chief complaint of shortness of breath and was found to be hypoxic with SpO2 in the 80s and transferred to our facility for further evaluation. COVID test at urgent care and home COVID test were both reported to be negative. Upon arrival to our facility, patient underwent evaluation in the emergency department. Signs upon arrival show blood pressure 129/82, heart rate 101, respiratory rate 22, temp 99.0 F, and SpO2 of 90% on room air. EKG completed showing sinus rhythm at 93 bpm with no significant T wave or ST abnormality showing no signs of acute ischemia upon personal review and interpretation. Chest x-ray completed revealing increased diffuse interstitial opacities concerning for atypical pneumonia. Labs completed and reviewed. CBC unremarkable. Coagulation profile showing low PTT of 20.6 and elevated D-dimer of 1.04. BMP unremarkable. Blood glucose 117. Lactic acid 1.0. Magnesium 2.0. Liver profile showing elevated ALT of 77 otherwise normal findings. Troponin was negative at less than 0.012 and proBNP was only 99. Influenza A, influenza B, RSV, and COVID PCR were negative. CTA chest was completed negative for pulmonary emboli showing cardiomegaly with pulmonary vascular congestion and scattered sternal lymphadenopathy with scattered centrilobular airspace opacities most pronounced in the upper lung concerning for atypical pneumonia. Patient was admitted under services with consultation to pulmonology. Patient underwent 4 night/5-day hospitalization receiving [id number] breathing treatments, IV steroids, and supplemental oxygen. He was successfully weaned off of supplemental oxygen and maintaining SpO2 94% on room air with rest and 91% on room air with exertion. Patient received 3-day course of azithromycin and 5-day course of Rocephin. He has been cleared from pulmonology standpoint and is medically optimized for discharge at this time. Patient discharged home with Symbicort inhaler, DuoNeb nebulizer treatments, Medrol Dosepak, and albuterol inhaler. Patient to follow-up outpatient with PCP in 1 to 2 days and mold puller in 1 week. Physical exam: Vital signs reviewed and stable. General: Nontoxic, no distress and appears stated age. Derm: Skin warm and dry, normal coloration for ethnicity. Head: Atraumatic, normocephalic and symmetric. Eyes: EOM's intact, no lid lag, and anicteric sclera Mouth: no lip lesions, mucus membranes moist Cardiovascular: regular rate and rhythm with normal S1S2, no murmur, positive posterior tibial pulses bilaterally, and cap refill < 2 seconds. Lungs: Respirations even, regular, and unlabored on room air. Lungs diminished with soft expiratory wheezes. No rhonchi, rales, or crackles noted. Abdominal: soft, nontender to palpation, no guarding, no appreciable organomegaly Ext: ROM intact. No gross muscle atrophy, no edema, no contractures Neuro: Speech clear, face symmetrical and CN II-XII grossly intact with no noted focal neuro deficits Psych: Alert and oriented to person, place, time, and situation. Appropriate and pleasant affect. A total of 37 minutes of time were spent preparing this complex discharge summary. Pt was discharged on 07/24/2024 at 10:28 AM. Patient was seen independently by Nurse Practitioner. This document was prepared using [employer] dictation software. Please allow for errors in contract sheltered workshop supervisor while rare they do occur. Mahesh Braga NP rendered care for this patient independently, reviewed the findings and plan as documented in the note above. I did not physically speak with or examine the patient on this date. Patient Condition at Discharge: Stable Plan - Discharge Summary Discharge Rx Participant: Yes New Discharge Prescriptions: New Budesonide-Formot 160-4.5 Mcg [Symbicort 160-4.5 Mcg Inhaler] 2 puff INHALATION RT-BID 30 Days #1 inh Ipratropium-Albuterol Nebulize [Duoneb 0.5 mg-3 mg/3 ml Soln] 3 ml INHALATION RT-QID 30 Days #120 each methylPREDNISolone Dose Pack [Medrol Dose Pack] 4 mg PO DIRECTED #21 tab Albuterol Inhaler [Ventolin Hfa Inhaler] 1 - 2 puff INHALATION Q6H PRN 90 Days #1 inh PRN Reason: Shortness Of Breath Or Wheezing metFORMIN HCL 500 mg PO BID 30 Days #60 tablet Continue Ibuprofen [Motrin Ib] 200 mg PO Q8H PRN PRN Reason: Pain Or Fever > 100.5 Coricidin Hbp Chest Congestion And Cough 1 - 2 tab PO Q4H PRN PRN Reason: cough & congestion Discharge Medication List Coricidin Hbp Chest Congestion And Cough 1 - 2 tab PO Q4H PRN 07/20/24 [History] Ibuprofen [Motrin Ib] 200 mg PO Q8H PRN 07/20/24 [History] Albuterol Inhaler [Ventolin Hfa Inhaler] 1 - 2 puff INHALATION Q6H PRN 90 Days #1 inh 07/24/24 [Rx] Budesonide-Formot 160-4.5 Mcg [Symbicort 160-4.5 Mcg Inhaler] 2 puff INHALATION RT-BID 30 Days #1 inh 07/24/24 [Rx] Ipratropium-Albuterol Nebulize [Duoneb 0.5 mg-3 mg/3 ml Soln] 3 ml INHALATION RT-QID 30 Days #120 each 07/24/24 [Rx] metFORMIN HCL 500 mg PO BID 30 Days #60 tablet 07/24/24 [Rx] methylPREDNISolone Dose Pack [Medrol Dose Pack] 4 mg PO DIRECTED #21 tab 07/24/24 [Rx] Follow up Appointment(s)/Referral(s): Kt Alaniz MD [STAFF PHYSICIAN] - 1 Week [facility],Equ[facility] [NON-STAFF] - As Needed (Nebulizer) Mina Parks MD [Primary Care Provider] - 1-2 days () Patient Instructions/Handouts: COPD (Chronic Obstructive Pulmonary Disease) (DC), Community Acquired Pneumonia (DC) Activity/Diet/Wound Care/Special Instructions: Activity: As tolerated. Take breaks as needed. Diet: Heart healthy and carb consistent diet. Special Instructions: Take all of your medications as directed and remember to keep all of your doctor's appointments and follow-up as needed. CT chest incidental finding revealed scattered diffuse lymphadenopathy, likely reactive. However, you will need a repeat CT of your chest for monitoring/surveilance to determine resolution or need for further testing if remains present. Thank you for allowing us to participate in your care, it was truly a pleasure having you for our patient!!! Diabetic supplies and prescriptions sent to [facility]. Discharge Disposition: HOME SELF-CARE
[2024-07-24 11:22] LABS: Glucose,Whole Blood 200 mg/dL (70-110)
[2024-07-24 11:33] VITALS: PULSE 83
--- NOTE | 2024-07-24 12:42 | P.PN ---
Subjective Progress Note Date: 07/24/24 This is a pleasant 58-year-old male patient with a history of myocardial infarction, former smoker, occasional smoking of marijuana, occasional alcohol use who presented to the emergency room yesterday with a 5-day history of increasing shortness of breath, cough, congestion, chest heaviness and fever up to 103.8 at home. Chest x-ray reveals increased diffuse interstitial opacities. EKG revealed sinus rhythm without ST or T wave abnormalities. CT angiogram ruled out pulmonary embolism. There is cardiomegaly with pulmonary vascular congestion. Scattered sternal lymphadenopathy possibly reactive versus neoplastic. Scattered centrilobular airspace opacities more pronounced in the upper lung. 7.0. Hemoglobin 15.4. Platelets 289. Sodium 138. Potassium 4.8. Bicarb 23. BUN 15. Creatinine 0.6. Glucose 233. Procalcitonin 0.09. Troponin negative x 1. proBNP 99. Viral screen negative. Echocardiogram revealed normal left ventricular size and systolic function. He is seen today in consultation on the regular medical floor. He is currently sitting up in bed. Awake and alert in no acute distress. He is maintaining good O2 saturations in the 90s on room air. He is currently afebrile. Hemodynamically stable. He does have a loose productive cough. Sputum culture pending. He was initiated on Rocephin and azithromycin. The patient is seen today July 22, 2024 in follow-up on the regular medical floor. He is currently sitting up in bed. Awake and alert in no acute distr ess. Denies any worsening shortness of breath, cough or congestion. He is feeling better. Not quite back to his baseline. He is continued on DuoNeb and elations, Symbicort, Solu-Medrol. Antibiotics in the form of Rocephin. Blood culture pending. White count 13.1. Hemoglobin 14.6. Platelets 315. Sodium 138. Potassium 5.0. Bicarb 27. BUN 22. Creatinine 0.57. Glucose 208. The patient is seen today July 23, 2024 in follow-up on the regular medical floor. He is awake and alert in no acute distress. Feeling better today compared to yesterday. Denies any worsening shortness of breath, cough or congestion. Chest x-ray shows improved bilateral interstitial densities. Blood culture reveals no growth. White count 15.7. Hemoglobin 14.4. Platelets 314. Sodium 137. Potassium 5.0. Bicarb 25. BUN 16. Creatinine 0.6. Glucose 185. He remains on ceftriaxone. Continue DuoNeb ventilations, Symbicort, Solu- Medrol. Lovenox for DVT prophylaxis. The patient is seen today July 24, 2024 in follow-up on the regular medical floor. He is currently sitting up at the bedside. Awake and alert in no acute distress. He denies any worsening shortness of breath, cough or congestion. He is maintaining good O2 saturations in the 90s on room air. His MALIK level was 18. Procalcitonin 0.09. Glucose 200. He is continued on DuoNeb inhalations, Symbicort, Solu-Medrol. Lovenox for DVT prophylaxis. Antibiotics in the form of ceftriaxone. Objective - Vital Signs Vital signs: Vital Signs Temp 97.6 F 07/24/24 07:15 Pulse 83 07/24/24 11:32 Resp 18 07/24/24 07:15 BP 151/95 07/24/24 07:15 Pulse Ox 94 L 07/24/24 09:50 FiO2 21 07/21/24 09:40 Intake & Output 07/23/24 07/24/24 07/24/24 18:59 06:59 18:59 Other: Voiding Method Toilet Toilet # Voids 3 - Exam GENERAL EXAM: Alert, 58 year-old male, sitting up at the bedside, on room air, in no apparent distress. HEAD: Normocephalic. EYES: Normal reaction of pupils, equal size. NOSE: Clear with pink turbinates. THROAT: No erythema or exudates. NECK: No masses, no JVD. CHEST: No chest wall deformity. LUNGS: Equal air entry with end expiratory bilateral wheezing. CVS: S1 and S2 normal with no audible murmur, regular rhythm. ABDOMEN: No hepatosplenomegaly, normal bowel sounds, no guarding or rigidity. SPINE: No scoliosis or deformity SKIN: No rashes CENTRAL NERVOUS SYSTEM: No focal deficits, tone is normal in all 4 extremities. EXTREMITIES: There is no peripheral edema. No clubbing, no cyanosis. Peripheral pulses are intact. - Labs CBC & Chem 7: 07/23/24 02:33 07/23/24 02:33 Labs: Abnormal Lab Results - Last 24 Hours (Table) 07/23/24 07/23/24 07/24/24 Range/Units 16:17 21:18 06:33 POC Glucose (mg/dL) 243 H 264 H 179 H (70-110) mg/dL 07/24/24 Range/Units 11:21 POC Glucose (mg/dL) 200 H (70-110) mg/dL Microbiology - Last 24 Hours (Table) 07/22/24 09:17 Gram Stain - Preliminary Sputum Sputum Culture - Preliminary 07/20/24 17:41 Blood Culture - Preliminary Blood Assessment and Plan Assessment: Acute hypoxic respiratory failure secondary to suspected atypical pneumonia. Procalcitonin negative. Viral screen negative Enlarged mediastinal lymph nodes including subcarinal lymph node measuring up to 4.5 cm. Possibly reactive versus malignancy Febrile illness secondary to above Former tobacco smoker Current marijuana smoking History of myocardial infarction Plan: The patient was seen and evaluated Labs and medications reviewed MALIK level within normal limits Stable and on room air For discharge from the pulmonary standpoint Continue Symbicort, DuoNeb ventilations, albuterol HFA, prednisone taper Follow-up with Dr. Alaniz in our office in 1 week I have personally seen and examined the patient, performed the documentation and the assessment and plan as written. Number of minutes spent on the visit: 10 Dictation was produced using [employer] dictation software. Please excuse any grammatical, word or spelling errors.
== END 2024-07-24 12:50 | disposition home or self-care (01) | DRG 139 ==
LOC: EC 12:46 → 4SSUR 17:03
PROVIDERS: ADMIT Student in an Organized Health Care Education/Training Program; ATTEND Student in an Organized Health Care Education/Training Program
DX: J18.9 Pneumonia, unspecified organism (principal); J44.1 Chronic obstructive pulmonary disease with (acute) exacerbation; J44.0 Chronic obstructive pulmonary disease with (acute) lower respiratory infection; J96.01 Acute respiratory failure with hypoxia; I42.8 Other cardiomyopathies; I27.20 Pulmonary hypertension, unspecified; E08.65 Diabetes mellitus due to underlying condition with hyperglycemia; R59.0 Localized enlarged lymph nodes; I49.3 Ventricular premature depolarization; C80.1 Malignant (primary) neoplasm, unspecified; I25.5 Ischemic cardiomyopathy; I25.2 Old myocardial infarction; M17.2 Bilateral post-traumatic osteoarthritis of knee; M47.9 Spondylosis, unspecified; M19.032 Primary osteoarthritis, left wrist; M19.031 Primary osteoarthritis, right wrist; Z87.891 Personal history of nicotine dependence; Z85.828 Personal history of other malignant neoplasm of skin; Z88.5 Allergy status to narcotic agent; Z28.310 Unvaccinated for COVID-19; Z20.822 Contact with and (suspected) exposure to COVID-19; Z28.21 Immunization not carried out because of patient refusal; Z79.51 Long term (current) use of inhaled steroids
CPT/HCPCS: 36415; 71045; 71046; 71275; 80048; 80053; 82164; 83036; 83605; 83735; 83880; 84145; 84484; 85025; 85027; 85379; 85610; 85730; 87040; 87070; 87205; 87636; 93005; 93306; 94640; 94760; 96365; 96366; 96367; 96375; 96376; 99291

== ENCOUNTER 2025-03-06 22:43 | Emergency (ER) | payer OTHER ==
[2025-03-07 00:10] LABS: Basophils # (A) 0.04 10*3/uL (0.00-0.10); Basophils % (A) 0.4 %; Eosinophils # (A) 0.23 10*3/uL (0.04-0.35); HCT 48.4 % (39.6-50.0); HGB 16.2 g/dL (13.0-17.0); Lymphocytes # (A) 1.11 10*3/uL (0.90-5.00); Lymphocytes % (A) 9.8 %; MCH 29.1 pg (27.0-32.0); MCHC 33.5 g/dL (32.0-37.0); MCV 87.1 fL (80.0-97.0); Mean Platelet Volume 9.7 fL (9.5-12.2); Monocytes # (A) 0.43 10*3/uL (0.20-1.00); Monocytes % (A) 3.8 %; Neutrophils # (A) 9.43 10*3/uL (1.80-7.70); Neutrophils % (A) 83.7 %; Platelet Count 272 10*3/uL (140-440); RBC 5.56 10*6/uL (4.40-5.60); RDW 13.4 % (11.5-14.5); WBC 11.27 10*3/uL (4.50-10.00)
[2025-03-07 00:25] LABS: ALT 49 U/L (4-49); AST 41 U/L (17-59); African American GFR (CKD) >90 (>60 ml/min/1.73 sqM); Albumin 4.3 g/dL (3.5-5.0); Alkaline Phosphatase 81 U/L (38-126); Anion Gap 10 mmol/L; Blood Urea Nitrogen 14 mg/dL (9-20); Calcium 9.4 mg/dL (8.4-10.2); Carbon Dioxide 26 mmol/L (22-30); Chloride 101 mmol/L (98-107); Glucose 138 mg/dL (74-99); Non-African American GFR(CKD) >90 (>60 ml/min/1.73 sqM); Potassium 4.6 mmol/L (3.5-5.1); Sodium 137 mmol/L (137-145); Total Bilirubin 0.6 mg/dL (0.2-1.3); Total Protein 7.2 g/dL (6.3-8.2)
[2025-03-07 00:34] LABS: INR 0.9 (<1.2); Partial Thromboplastin Time 24.9 sec (22.0-30.0); Prothrombin Time 10.5 sec (10.0-12.5)
[2025-03-07] MEDS ORDERED: SODIUM CHLORIDE 0.9% 1,000 ML IV ONE (00:42)
[2025-03-07] MEDS ORDERED: ALBUTEROL NEBULIZED 2.5 MG/3 ML INHALATION STA (00:54)
[2025-03-07] MEDS ORDERED: IPRATROPIUM 0.5 MG/2.5 ML NEBU INHALATION STA (00:54)
--- NOTE | 2025-03-07 01:11 | ED ---
General Adult HPI - General Chief complaint: Shortness of Breath Stated complaint: SOB,Chest Tightness Time Seen by Provider: 03/07/25 00:05 Source: patient, EMS Mode of arrival: EMS Limitations: no limitations - History of Present Illness Initial comments: Patient is a 59 y/o male hx CAD and COPD presenting for chest heaviness. Pt believes he may have PNA. States has had 2-3 days of nonproductive cough and shortness of breath as well as mild headaches and nasal congestion. No fevers or but endorses chills. Today began experiencing a heaviness in his chest and increased shortness of breath. His home pulse oximeter showed a pulse ox in the 80s so his sister called 911. Pt received steroids and albuterol treatment via EMS with some improvement in symptoms. Denies hemoptysis or LE swelling. Endorses some lightheadedness. Denies abdominal pain, nausea, vomiting, melena or hematochezia. - Related Data Home Medications Medication Instructions Recorded Confirmed Coricidin Hbp Chest Congestion And 1 - 2 tab PO Q4H PRN 07/20/24 07/20/24 Cough Ibuprofen [Motrin Ib] 200 mg PO Q8H PRN 07/20/24 07/20/24 Previous Rx's Medication Instructions Recorded Albuterol Inhaler [Ventolin Hfa 1 - 2 puff INHALATION Q6H PRN 90 07/24/24 Inhaler] Days #1 inh Budesonide-Formot 160-4.5 Mcg 2 puff INHALATION RT-BID 30 Days 07/24/24 [Symbicort 160-4.5 Mcg Inhaler] #1 inh Ipratropium-Albuterol Nebulize 3 ml INHALATION RT-QID 30 Days 07/24/24 [Duoneb 0.5 mg-3 mg/3 ml Soln] #120 each metFORMIN HCL 500 mg PO BID 30 Days #60 tablet 07/24/24 methylPREDNISolone Dose Pack 4 mg PO DIRECTED #21 tab 07/24/24 [Medrol Dose Pack] Amoxic-Pot Clav 875-125Mg 1 tab PO BID 7 Days #14 tab 03/07/25 [Augmentin 875-125] Azithromycin [Zithromax Z Pack] 1 tab PO DIRECTED #6 tab 03/07/25 predniSONE [Deltasone] 40 mg PO DAILY #8 tab 03/07/25 Allergies Allergy/AdvReac Type Severity Reaction Status Date / Time hydrocodone [From [place]] Allergy Itching Verified 07/20/24 14:32 Review of Systems ROS Statement: Those systems with pertinent positive or pertinent negative responses have been documented in the HPI. ROS Other: All systems not noted in ROS Statement are negative. Past Medical History Past Medical History: No Reported History, Heart Failure, Diabetes Mellitus Additional Past Medical History / Comment(s): Arthritis in back/bilateral knees/wrists, basal cell skin cancer removed. Last Myocardial Infarction Date:: 03/2022 History of Any Multi-Drug Resistant Organisms: None Reported Date of last positivie culture/infection: 2022 MDRO Source:: under arm Past Surgical History: No Surgical Hx Reported, Heart Catheterization Additional Past Surgical History / Comment(s): Skin cancer removed from face. Past Anesthesia/Blood Transfusion Reactions: Unable to Obtain Additional Past Anesthesia/Blood Transfusion Reaction / Comment(s): Pt has never had anesthesia. Past Psychological History: No Psychological Hx Reported Smoking Status: Former smoker Past Alcohol Use History: Rare Past Drug Use History: Marijuana - Past Family History Father Family Medical History: Congestive Heart Failure (CHF), Hyperlipidemia Additional Family Medical History / Comment(s): Father had leaky heart valves and from L sided heart failure. He had low iron and had high dose iron infusions. He had hypotension and PVCs. Mother Family Medical History: Coronary Artery Disease (CAD) Additional Family Medical History / Comment(s): Mother had cardiac stents. General Exam - General Exam Comments Initial Comments: PE: CONSTITUTIONAL: No apparent distress, somewhat ill-appearing though nontoxic SKIN: Warm, dry, no jaundice, hives or petechiae EYES: Pupils are equally round, extraocular movements intact without nystagmus, clear conjunctiva, non-icteric sclera HENT: Normocephalic, atraumatic, moist mucus membranes NECK: , Full range of motion, normal appearance PULMONARY: Scant rales and rhonchi in the left lower lung field, scant wheezes bilaterally, normal excursion, no accessory muscle use and no stridor CARDIOVASCULAR: Regular rate, rhythm, normal S1 and S2. No appreciated murmurs, rubs or gallops. Strong radial pulses with intact distal perfusion. No lower extremity edema GASTROINTESTINAL: Soft, active bowel sounds throughout, non-tender, non- distended, no palpable masses, no rebound or guarding. No hepatosplenomegaly MUSCULOSKELETAL: Extremities have no gross deformity, no edema, redness, or swelling. NEUROLOGIC:_a/o x 3, GCS 15, normal mentation and speech. Moves all extremities x 4 without motor or sensory deficit PSYCHIATRIC:_normal mood and affect, thought process is clear and linear Limitations: no limitations Course Vital Signs 03/06/25 03/07/25 22:56 01:45 Temperature 98.3 F 98.1 F Pulse Rate 86 95 Respiratory 20 16 Rate Blood Pressure 144/80 150/90 O2 Sat by Pulse 96 92 L Oximetry EKG Findings - EKG Comments: EKG Findings:: sinus rhythm, rate 94 bpm, intervals within acceptable limits, left axis deviation, no significant ST elevations or depressions Medical Decision Making - Medical Decision Making Was pt. sent in by a medical professional or institution (, PA, GSE MECHANIC, urgent care, hospital, or long-term...) When possible be specific @ -No Did you speak to anyone other than the patient for history (EMS, parent, family, police, friend...)? What history was obtained from this source @ -I spoke with patient sister who stated that she checked the patient's pulse ox at home and noted it to be in the 80s Did you review nursing and triage notes (agree or disagree)? Why? @ -I reviewed nursing and triage notes-I disagree, states that he endorses chest pressure, patient described to me as chest tightness Were old charts reviewed (outside hosp., previous admission, EMS record, old EKG, old radiological studies, urgent care reports/EKG's, long-term records)? Report findings @ -Medical records reviewed- reviewed CXR 07/23/24- compared to today's, prior XR did not appear to have as much interstitial prominence, additionally, appears to have new developing infiltrate in RLL Differential Diagnosis (chest pain, altered mental status, abdominal pain women, abdominal pain men, vaginal bleeding, weakness, fever, dyspnea, syncope, headac he, dizziness, GI bleed, back pain, seizure, CVA, palpatations, mental health, musculoskeletal)? @ -Differential Chest Pain: Stable Angina, Unstable Angina, STEMI, NSTEMI Aortic Dissection, pericarditis, pleurisy, chostochondirits, Pneumothorax, Musculoskeletal, Esophageal Spasm GERD, Cholecystitis, Pancreatitis, Zoster, this is not meant to be an all- inclusive list. Differential Dyspnea: Coronary syndrome, arrhythmia, tamponade, asthma, COPD, pulmonary embolism, pneumonia, pneumothorax, pulmonary effusion, anaphylaxis, diabetic ketoacidosis, flailed chest, pulmonary contusion, diaphragmatic rupture, anemia, neuromuscular, this is not meant to be an all-inclusive list. EKG interpreted by me (3pts min.). @ -As above X-rays interpreted by me (1pt min.). @ -Personally reviewed chest x-ray, does appear to be some interstitial prominence questionable developing right sided infiltrate CT interpreted by me (1pt min.). @ -None done U/S interpreted by me (1pt. min.). @ -None done What testing was considered but not performed or refused? (CT, X-rays, U/S, labs)? Why? @Ddimer, BNP were considered however unable to be obtained prior to pt leaving AMA What meds were considered but not given or refused? Why? @DuoNebs,tylenol, ibuprofen, fluids Did you discuss the management of the patient with other professionals (professionals i.e. , PA, GSE MECHANIC, lab, RT, psych nurse, social science instructor, hair baler, teacher, sales and service officer, assistant case manager)? Give summary @ -No Was smoking cessation discussed for >3mins.? @ -No Was critical care preformed (if so, how long)? @ -No Were there social determinants of health that impacted care today? How? (Homelessness, low income, unemployed, alcoholism, drug addiction, transportation, low edu. Level, literacy, decrease access to med. care, retirement, rehab)? @ -No Was there de-escalation of care discussed even if they declined (Discuss DNR or withdrawal of care, Hospice)? @ -No What co-morbidities impacted this encounter? (DM, HTN, Smoking, COPD, CAD, Cancer, CVA, ARF, Chemo, Hep., AIDS, mental health diagnosis, sleep apnea, morbid obesity)? @ -COPD, CAD Was patient admitted / discharged? Hospital course, mention meds given and route, prescriptions, significant lab abnormalities, going to OR and other pertinent info. @Left AGAINST MEDICAL ADVICE-patient is a pleasant 59-year-old man, past medical history as noted above, presenting today for chest tightness and concern for developing pneumonia. Vital signs are stable on arrival. Of note, due to ER at overflow capacity due to multiple boarding patients in the emergency department at time of patient's visit, he did spend a significant amount of time in the waiting room prior to my assessment. A =TP orders were placed prior to my assessment by triage provider, in order to expedite patient care.This included an EKG, chest x-ray, CMP, CBC, coags, troponin, lactic. I reviewed patient's labs which were significant for mild leukocytosis white blood cell count 11.27 with elevated neutrophils, lactic of 2.3, troponin 0.013. On my assessment patient remains in the waiting room. I obtained the patient's permission to complete evaluation in the waiting room while awaiting ER bed which she was ag reeable. Exam was significant for slight rhonchi and rales in the left lower lung field. I updated patient to laboratory findings including elevated lactic, plan for IV fluids, repeat lactic, nebulizer treatments, Tylenol, ibuprofen and pending chest x-ray read. Patient was initially agreeable w/ plan of care however shortly afterwards was requesting discharge home. Patient stated that he felt better and did not want to spend more time in the waiting room. I did discuss with the patient that he would be signing out AGAINST MEDICAL ADVICE. Discussed pending XR, elevated lactic and need for further assessment. Pt understanding of this but would still like to leave AMA. Given suspicion for PNA based on CXR, exam and pt's symptoms, antibiotics and steroids will be sent to pt's pharmacy. Discussed with the pt that he should come back at any time should he change his mind or should his symptoms worsen. Patient left AMA Undiagnosed new problem with uncertain prognosis? @ -No Drug Therapy requiring intensive monitoring for toxicity (Heparin, Nitro, Insulin, Cardizem)? @ -No Were any procedures done? @ -No Diagnosis/symptom? @Community aqcuired Pneumonia Acute, or Chronic, or Acute on Chronic? @ acute Uncomplicated (without systemic symptoms) or Complicated (systemic symptoms)? @complicated Side effects of treatment? @ -No Exacerbation, Progression, or Severe Exacerbation? @ -No Poses a threat to life or bodily function? How? (Chest pain, [place], [place], pneumonia, PE, COPD, DKA, ARF, appy, cholecystitis, CVA, Diverticulitis, Homicidal, Suicidal, threat to staff... and all critical care pts) Possibly, did discuss this with pt prior to his leaving AMA - Lab Data Result diagrams: 03/06/25 23:40 03/06/25 23:40 Lab Results 03/06/25 03/06/25 03/06/25 Range/Units 23:40 23:40 23:40 WBC 11.27 H (4.50-10.00) 10*3/uL RBC 5.56 (4.40-5.60) 10*6/uL Hgb 16.2 (13.0-17.0) g/dL Hct 48.4 (39.6-50.0) % MCV 87.1 (80.0-97.0) fL MCH 29.1 (27.0-32.0) pg MCHC 33.5 (32.0-37.0) g/dL Plt Count 272 (140-440) 10*3/uL MPV 9.7 (9.5-12.2) fL Immature Gran % (Auto) 0.3 % Neutrophils % 83.7 % Lymphocytes % 9.8 % Monocytes % 3.8 % Eosinophils % 2.0 % Basophils % 0.4 % Immature Gran # 0.03 (0.00-0.04) 10*3/uL Neutrophils # 9.43 H (1.80-7.70) 10*3/uL Lymphocytes # 1.11 (0.90-5.00) 10*3/uL Monocytes # 0.43 (0.20-1.00) 10*3/uL Eosinophils # 0.23 (0.04-0.35) 10*3/uL Basophils # 0.04 (0.00-0.10) 10*3/uL PT 10.5 (10.0-12.5) sec INR 0.9 (<1.2) APTT 24.9 (22.0-30.0) sec Sodium 137 (137-145) mmol/L Potassium 4.6 (3.5-5.1) mmol/L Chloride 101 (98-107) mmol/L Carbon Dioxide 26 (22-30) mmol/L Anion Gap 10 mmol/L BUN 14 (9-20) mg/dL Creatinine 0.47 L (0.66-1.25) mg/dL Est GFR (CKD-EPI)AfAm >90 (>60 ml/min/1.73 sqM) Est GFR (CKD-EPI)NonAf >90 (>60 ml/min/1.73 sqM) Glucose 138 H (74-99) mg/dL Lactic Ac Sepsis Rflx Plasma Lactic Acid Cesar (0.7-2.0) mmol/L Calcium 9.4 (8.4-10.2) mg/dL Total Bilirubin 0.6 (0.2-1.3) mg/dL AST 41 (17-59) U/L ALT 49 (4-49) U/L Alkaline Phosphatase 81 (38-126) U/L Troponin I (0.000-0.034) ng/mL Total Protein 7.2 (6.3-8.2) g/dL Albumin 4.3 (3.5-5.0) g/dL 03/06/25 03/06/25 03/07/25 Range/Units 23:40 23:40 00:39 WBC (4.50-10.00) 10*3/uL RBC (4.40-5.60) 10*6/uL Hgb (13.0-17.0) g/dL Hct (39.6-50.0) % MCV (80.0-97.0) fL MCH (27.0-32.0) pg MCHC (32.0-37.0) g/dL Plt Count (140-440) 10*3/uL MPV (9.5-12.2) fL Immature Gran % (Auto) % Neutrophils % % Lymphocytes % % Monocytes % % Eosinophils % % Basophils % % Immature Gran # (0.00-0.04) 10*3/uL Neutrophils # (1.80-7.70) 10*3/uL Lymphocytes # (0.90-5.00) 10*3/uL Monocytes # (0.20-1.00) 10*3/uL Eosinophils # (0.04-0.35) 10*3/uL Basophils # (0.00-0.10) 10*3/uL PT (10.0-12.5) sec INR (<1.2) APTT (22.0-30.0) sec Sodium (137-145) mmol/L Potassium (3.5-5.1) mmol/L Chloride (98-107) mmol/L Carbon Dioxide (22-30) mmol/L Anion Gap mmol/L BUN (9-20) mg/dL Creatinine (0.66-1.25) mg/dL Est GFR (CKD-EPI)AfAm (>60 ml/min/1.73 sqM) Est GFR (CKD-EPI)NonAf (>60 ml/min/1.73 sqM) Glucose (74-99) mg/dL Lactic Ac Sepsis Rflx Y Plasma Lactic Acid Cesar 2.3 H* (0.7-2.0) mmol/L Calcium (8.4-10.2) mg/dL Total Bilirubin (0.2-1.3) mg/dL AST (17-59) U/L ALT (4-49) U/L Alkaline Phosphatase (38-126) U/L Troponin I 0.013 (0.000-0.034) ng/mL Total Protein (6.3-8.2) g/dL Albumin (3.5-5.0) g/dL Disposition Clinical Impression: Community acquired pneumonia Disposition: LEFT AGAINST MEDICAL ADVICE Condition: Stable Instructions (If sedation given, give patient instructions): Community Acquired Pneumonia (ED) Additional Instructions: Every disease is a spectrum and a small chance still exists that a serious condition could develop, for this reason, please monitor yourself closely for new, changing or worsening symptoms, symptoms that persist beyond [48 hours], or do not improve with completion of antibiotics, coughing up thick sputum or blood, difficulty in breathing, pulse ox below 90%, [fever], inability to tolerate/keep down fluids or your medications, inability to follow up with outpatient providers as instructed and should you experience these symptoms or should you have any further concerns for your wellbeing please return to the ED or call 911 immediately. Please drink plenty of clear fluids and get plenty of rest. Use your albuterol breathing treatments every 4-6 hours. PLEASE call your primary care physician as soon as possible to arrange / discuss plan for followup appointment. Appointment in the next 1-3 days is strongly encouraged if possible. PLEASE let us know here before you leave if there is anything further we can do to be of any assistance. Take care and feel Better! Prescriptions: Amoxic-Pot Clav 875-125Mg [Augmentin 875-125] 1 tab PO BID 7 Days #14 tab predniSONE [Deltasone] 40 mg PO DAILY #8 tab Azithromycin [Zithromax Z Pack] 1 tab PO DIRECTED #6 tab Is patient prescribed a controlled substance at d/c from ED?: No Referrals: Mina Parks MD [Primary Care Provider] - 1-2 days
[2025-03-07] MEDS: IBUPROFEN 600 MG TAB PO STA (01:18)
[2025-03-07] MEDS: ACETAMINOPHEN TAB 500 MG TAB PO STA (01:18)
[2025-03-07 01:46] VITALS: BP 150/90; PULSE 95; RESP 16; TEMP 98.1
--- NOTE | 2025-03-07 03:39 | XR ---
EXAM: XR Chest, 2 Views CLINICAL HISTORY: ITS.REASON XR Reason: difficulty breathing TECHNIQUE: Frontal and lateral views of the chest. COMPARISON: No relevant prior studies available. FINDINGS: Lungs: Mild perihilar fullness, correlate for minimal/early CHF. Pleural space: Unremarkable. No pneumothorax. Heart: Cardiomegaly. Mediastinum: Unremarkable. Bones/joints: Unremarkable. IMPRESSION: Mild perihilar fullness, correlate for minimal/early CHF.
== END 2025-03-07 01:46 | disposition left against medical advice (07) ==
LOC: EC 22:43
DX: J18.9 Pneumonia, unspecified organism (principal); J44.9 Chronic obstructive pulmonary disease, unspecified; I25.10 Atherosclerotic heart disease of native coronary artery without angina pectoris; Z87.891 Personal history of nicotine dependence; Z88.5 Allergy status to narcotic agent; Z53.29 Procedure and treatment not carried out because of patient's decision for other reasons
CPT/HCPCS: 36415; 71046; 80053; 83605; 84484; 85025; 85610; 85730; 93005; 99285